=== PATIENT | female | born 1930 | race Caucasian/White ===

== ENCOUNTER 2019-11-24 19:06 | Inpatient (IN) | payer MEDICARE, OTHER ==
[~2019-11-24] VITALS: Ht 147.3 cm; Wt 66.4 kg
[2019-11-24 19:44] LABS: BASO # 0.1 x10^3/uL (0.0-0.2); BASO % 1 % (0-3); EOS # 0.6 x10^3/uL (0.0-0.7); EOS % 6 % (0-3); HEMATOCRIT 40.8 % (36.0-47.0); HEMOGLOBIN 13.2 g/dL (12.0-15.5); LYMPH # 0.8 x10^3/uL (1.0-4.8); LYMPH % 9 % (24-48); MEAN CORPUSCULAR HEMOGLOBIN 29 pg (25-35); MEAN CORPUSCULAR HGB CONC 32 g/dL (31-37); MEAN CORPUSCULAR VOLUME 91 fL (79-100); MONO # 0.6 x10^3/uL (0.0-1.1); MONO % 6 % (0-9); NEUT # 7.1 x10^3uL (1.8-7.7); NEUT % 78 % (31-73); PLATELET COUNT 258 x10^3/uL (140-400); RED BLOOD COUNT 4.49 x10^6/uL (3.50-5.40); WHITE BLOOD COUNT 9.1 x10^3/uL (4.0-11.0)
[2019-11-24 19:49] LABS: CREATININE 1.3 mg/dL (0.6-1.0); GFR 38.7; POTASSIUM 4.1 mmol/L (3.5-5.1)
[2019-11-24 19:55] LABS: ALBUMIN/GLOBULIN RATIO 0.7 (1.0-1.7); MAGNESIUM 1.2 mg/dL (1.8-2.4); TOTAL BILIRUBIN 0.2 mg/dL (0.2-1.0); TOTAL PROTEIN 7.4 g/dL (6.4-8.2)
--- NOTE | 2019-11-24 20:41 | PHYS DOC ---
Past History Past Medical History: A-Fib, Anxiety, Arthritis, Arrhythmia, Asthma, CHF, Dementia, Diabetes, GERD, High Cholesterol, Hypertension, Hypothyroid, UTI Past Surgical History: Pacemaker Alcohol Use: None Adult General Chief Complaint Chief Complaint: PSYCH EVALUATION HPI HPI 89-year-old female presents for medical clearance for behavioral health admission. Patient was reported to be having hallucinations about spiders and snakes in her room. The patient only complains of some ongoing irritation to me. She denies any other complaints. She has not reported fever. Review of Systems Review of Systems Constitutional: Denies fever or chills [] Eyes: Denies change in visual acuity, redness, or eye pain [] HENT: Denies nasal congestion or sore throat [] Respiratory: Denies cough or shortness of breath [] Cardiovascular: No additional information not addressed in HPI [] GI: Denies abdominal pain, nausea, vomiting, bloody stools or diarrhea [] : Denies dysuria or hematuria [] Musculoskeletal: Denies back pain or joint pain [] Integument: Rash on upper thighs[] Neurologic: Hallucinations. Denies headache, focal weakness or sensory changes [] Endocrine: Denies polyuria or polydipsia [] All other systems were reviewed and found to be within normal limits, except as documented in this note. Allergies Allergies Allergies Coded Allergies Type Severity Reaction Last Updated Verified CAROLYN Inhibitors Allergy Unknown 11/24/19 Yes Penicillins Allergy Unknown 11/24/19 Yes codeine Allergy Unknown 11/24/19 Yes ibuprofen Allergy Unknown 11/24/19 Yes latex Allergy Unknown 11/24/19 Yes sulfamethoxazole Allergy Unknown 11/24/19 Yes trimethoprim Allergy Unknown 11/24/19 Yes Physical Exam Physical Exam Constitutional: Well developed, well nourished, no acute distress, non-toxic appearance. [] HENT: Normocephalic, atraumatic, bilateral external ears normal, oropharynx moist, no oral exudates, nose normal. [] Eyes: PERRLA, EOMI, conjunctiva normal, no discharge. [] Neck: Normal range of motion, no tenderness, supple, no stridor. [] Cardiovascular:Heart rate regular rhythm, no murmur [] Lungs & Thorax: Bilateral breath sounds clear to auscultation [] Abdomen: Bowel sounds normal, soft, no tenderness, no masses, no pulsatile matti s. [] Skin: Edematous patches on the bilateral upper inner thighs.[] Back: No tenderness, no CVA tenderness. [] Extremities: No tenderness, no cyanosis, no clubbing, ROM intact, no edema. [] Neurologic: Alert and oriented X 3, normal motor function, normal sensory function, no focal deficits noted. [] Psychologic: Affect normal, judgement normal, mood normal. [] Current Patient Data Vital Signs Vital Signs Date Time Temp Pulse Resp B/P (MAP) Pulse Ox O2 Delivery O2 Flow Rate FiO2 11/24/19 19:06 97.8 60 18 147/84 (105) 93 Room Air Lab Results Laboratory Tests Test 11/24/19 19:24 White Blood Count 9.1 x10^3/uL (4.0-11.0) Red Blood Count 4.49 x10^6/uL (3.50-5.40) Hemoglobin 13.2 g/dL (12.0-15.5) Hematocrit 40.8 % (36.0-47.0) Mean Corpuscular Volume 91 fL (79-100) Mean Corpuscular Hemoglobin 29 pg (25-35) Mean Corpuscular Hemoglobin Concent 32 g/dL (31-37) Red Cell Distribution Width 16.0 % (11.5-14.5) H Platelet Count 258 x10^3/uL (140-400) Neutrophils (%) (Auto) 78 % (31-73) H Lymphocytes (%) (Auto) 9 % (24-48) L Monocytes (%) (Auto) 6 % (0-9) Eosinophils (%) (Auto) 6 % (0-3) H Basophils (%) (Auto) 1 % (0-3) Neutrophils # (Auto) 7.1 x10^3uL (1.8-7.7) Lymphocytes # (Auto) 0.8 x10^3/uL (1.0-4.8) L Monocytes # (Auto) 0.6 x10^3/uL (0.0-1.1) Eosinophils # (Auto) 0.6 x10^3/uL (0.0-0.7) Basophils # (Auto) 0.1 x10^3/uL (0.0-0.2) Platelet Estimate Pending Sodium Level 142 mmol/L (136-145) Potassium Level 4.1 mmol/L (3.5-5.1) Chloride Level 103 mmol/L (98-107) Carbon Dioxide Level 28 mmol/L (21-32) Anion Gap 11 (6-14) Blood Urea Nitrogen 24 mg/dL (7-20) H Creatinine 1.3 mg/dL (0.6-1.0) H Estimated GFR (Cockcroft-Gault) 38.7 BUN/Creatinine Ratio 18 (6-20) Glucose Level 121 mg/dL (70-99) H Calcium Level 9.0 mg/dL (8.5-10.1) Magnesium Level 1.2 mg/dL (1.8-2.4) L Total Bilirubin 0.2 mg/dL (0.2-1.0) Aspartate Amino Transferase (AST) 53 U/L (15-37) H Alanine Aminotransferase (ALT) 81 U/L (14-59) H Alkaline Phosphatase 105 U/L (46-116) Total Protein 7.4 g/dL (6.4-8.2) Albumin 3.0 g/dL (3.4-5.0) L Albumin/Globulin Ratio 0.7 (1.0-1.7) L EKG EKG Likely paced rhythm, rate 60, leftward axis, no ST elevations or depressions.[] Radiology/Procedures Radiology/Procedures [] Course & Med Decision Making Course & Med Decision Making Pertinent Labs and Imaging studies reviewed. (See chart for details) The patient's labs are unremarkable. Her EKG is unremarkable. She is medically stable for behavioral health admission. I will advise that they treat her for tinea infection of the groin. [] Dragon Disclaimer Dragon Disclaimer This electronic medical record was generated, in whole or in part, using a voice recognition dictation system. Departure Departure: Impression: Primary Impression: Medical clearance for psychiatric admission Additional Impression: Tinea cruris Disposition: ADMITTED INPATIENT Condition: STABLE Problem Qualifiers JULIO CESAR SWANN DO Nov 24, 2019 20:40
[2019-11-24] MEDS ORDERED: ONDA4TAB12 PO (20:43)
[2019-11-24] MEDS ORDERED: APIX5TAB3 PO (20:43)
[2019-11-24] MEDS ORDERED: FURO40TA4 PO (20:43)
[2019-11-24] MEDS ORDERED: BUSP5TAB PO (20:43)
[2019-11-24] MEDS ORDERED: TRAM50TA PO (20:43)
[2019-11-24] MEDS ORDERED: METF10007 PO (20:43)
[2019-11-24] MEDS ORDERED: TRIA15CR50 TP (20:43)
[2019-11-24] MEDS ORDERED: DILT180T7 PO (20:43)
[2019-11-24] MEDS ORDERED: PRAV40TA2 PO (20:43)
[2019-11-24] MEDS ORDERED: LOSA25TA PO (20:43)
[2019-11-24] MEDS ORDERED: AMIO200T4 PO (20:43)
[2019-11-24] MEDS ORDERED: METO-247 PO (20:43)
[2019-11-24] MEDS ORDERED: QUET25TA5 PO (20:43)
[2019-11-24] MEDS ORDERED: DEXT15DR5 EACHEYE (20:43)
[2019-11-24] MEDS ORDERED: CYAN100031 PO (20:43)
[2019-11-24] MEDS ORDERED: LEVO75TA5 PO (20:43)
[2019-11-24] MEDS ORDERED: POTA20TA4 PO (20:43)
[2019-11-24] MEDS ORDERED: MULT-114 PO (20:43)
[2019-11-24] MEDS ORDERED: LOPE2TAB27 PO (20:43)
[2019-11-24] MEDS ORDERED: CHOL200078 PO (20:43)
[2019-11-24] MEDS ORDERED: ASCO500C PO (20:43)
[2019-11-24] MEDS ORDERED: LACT1CAP2 PO (20:43)
[2019-11-24] MEDS ORDERED: NYST60PO TP (20:43)
[2019-11-24] MEDS ORDERED: OMEP40CA45 PO (20:43)
[2019-11-24] MEDS ORDERED: CALC500T31 PO (20:43)
[2019-11-24 21:23] LABS: % BANDS 5 % (0-9); % EOS 4 % (0-5); % LYMPHS 7 % (24-48); % MONOS 2 % (0-10); % MYELOS 2 % (0-0); % SEGS 80 % (35-66)
[2019-11-24 21:24] LABS: PLT ESTIMATE ADEQUATE (ADEQUATE)
[2019-11-24 21:56] LABS: CLARITY,URINE HAZY; COLOR,URINE YELLOW
[2019-11-24 21:57] LABS: BILIRUBIN,URINE NEG (NEG); GLUCOSE,URINE NEG (NEG); NITRITE,URINE NEG (NEG); UROBILINOGEN,URINE 0.2 mg/dL (0.2 mg/dL)
[2019-11-24] MEDS ORDERED: INSU100I17 SQ (22:07)
[2019-11-24 22:27] VITALS: BP 132/61
[2019-11-24] MEDS ORDERED: MAG HYDROX/AL HYDROX/SIMETH 30 ML ORAL.SUSP PO PRN (22:30)
[2019-11-24] MEDS ORDERED: ACETAMINOPHEN 325 MG TABLET PO PRN (22:30)
[2019-11-24] MEDS ORDERED: DEXTROSE 50% 25 GM / 50ML DISP.SYRIN. IV PRN (22:30)
[2019-11-24] MEDS ORDERED: MAGNESIUM HYDROXIDE 2,400 MG/30 ML ORAL.SUSP. PO PRN (22:30)
[2019-11-24] MEDS ORDERED: METHYL SALICYLATE/MENTHOL TOPICAL OINTMENT 57GM TUBE. TP PRN (22:30)
[2019-11-24] MEDS ORDERED: TRIAMCINOLONE ACETONIDE 0.5% TOPICAL CREAM 15GM TUBE. TP PRN (22:30)
[2019-11-24] MEDS ORDERED: LOPERAMIDE 2 MG CAPSULE PO PRN (22:45)
[2019-11-24] MEDS ORDERED: CALCIUM CARBONATE 500 MG TAB.CHEW PO PRN (22:45)
[2019-11-24] MEDS ORDERED: ANTI-COAG MONITOR BY PHARMACY. MC PRN (23:00)
--- NOTE | 2019-11-24 23:15 | EKG ---
[address] [address] Test Date: 2019-11-24 Test Time: 19:28:04 Pat Name: QUINCY HOLLAND Department: Room: [address] [place] [address] Gender: F [employer]: : 1930 Requested By: JULIO CESAR SWANN Order Number: [id number] Reading MD: Farhat Cespedes Measurements Intervals [place] Rate: 60 P: [place]: QRS: -21 QRSD: 84 T: 8 QT: 518 QTc: 523 Interpretive Statements ATRIAL PACED RHYTHM LEFTWARD AXIS LOW LIMB LEAD VOLTAGE QRS(T) CONTOUR ABNORMALITY CONSISTENT WITH INFERIOR INFARCT PROBABLY OLD ABNORMAL ECG RI6.01 No previous ECG available for comparison Electronically Signed On 12-12-2019 9:21:00 CDT by Farhat Cespedes
[2019-11-25 05:23] VITALS: BP 134/71
[2019-11-25] MEDS: INSULIN LISPRO 300 UNITS/3 ML VIAL. SQ SCH ×3 (08:00→17:00)
--- NOTE | 2019-11-25 08:02 | RAD ---
EXAM: CHEST AP ONLY INDICATION: Crackles at bilateral lung bases.. TECHNIQUE: Single view COMPARISON: None FINDINGS: Left chest dual-chamber pacemaker is present. Heart is borderline enlarged. Great vessels show aortic calcification and mild tortuosity. There is mild prominence of the pulmonary artery shadows bilaterally. No hilar or mediastinal masses seen. Lungs show coarse reticular densities, right greater than left with slightly low lung volumes. There is no pleural effusion or pneumothorax. There are no significant osseous abnormalities. IMPRESSION: Findings of interstitial lung disease with borderline cardiomegaly. No parenchymal consolidative changes suspicious for lobar pneumonia. Electronically signed by: Gillian Koenig MD (11/25/2019 7:59 AM) [id number]
[2019-11-25] MEDS ORDERED: QUEtiapine 25 MG TABLET. PO SCH (09:00)
[2019-11-25] MEDS: AMIODARONE HCL 200 MG TABLET PO SCH (09:00)
[2019-11-25] MEDS: NYSTATIN TOPICAL POWDER 15GM BOTTLE. TP SCH ×3 (09:00→20:48)
[2019-11-25] MEDS: APIXABAN 5 MG TABLET. PO SCH ×2 (09:27→20:51)
[2019-11-25] MEDS: PANTOPRAZOLE 40 MG TABLET. PO SCH (09:27)
[2019-11-25] MEDS: metFORMIN 500 MG TABLET PO SCH ×2 (09:27→17:00)
[2019-11-25] MEDS: LACTOBACILLUS RHAMNOSUS GG 1 CAPSULE. PO SCH (09:27)
[2019-11-25] MEDS: ASCORBIC ACID 500 MG TABLET PO SCH (09:27)
[2019-11-25] MEDS: MULTIVITAMIN with MINERAL TABLET. PO SCH (09:28)
[2019-11-25] MEDS: POLYVINYL ALCOHOL 1.4% OPHTH SOLUTION 15ML BOTTLE. OU SCH ×2 (09:28→20:48)
[2019-11-25] MEDS: LEVOTHYROXINE 75 MCG TABLET PO SCH (09:28)
[2019-11-25] MEDS: LOSARTAN 25 MG TABLET. PO SCH (09:28)
[2019-11-25] MEDS: POTASSIUM CHLORIDE 20 MEQ TABLET.ER. PO SCH (09:29)
[2019-11-25] MEDS: CYANOCOBALAMIN (VITAMIN B-12) 1,000 MCG TABLET. PO SCH (09:29)
[2019-11-25] MEDS: busPIRone 5 MG TABLET. PO SCH ×2 (09:29→20:50)
[2019-11-25] MEDS: FUROSEMIDE 40 MG TABLET PO SCH (09:29)
[2019-11-25 15:43] VITALS: BP 106/71
[2019-11-25 16:07] LABS: THYROXINE 11.1 ug/dL (4.5-12.0)
[2019-11-25 17:40] LABS: BILIRUBIN,URINE NEG (NEG); CLARITY,URINE HAZY; COLOR,URINE YELLOW; GLUCOSE,URINE NEG (NEG)
[2019-11-25 17:41] LABS: BACTERIA,URINE FEW /HPF (0-FEW); NITRITE,URINE NEG (NEG); RBC,URINE OCC /HPF (0-2); SQUAMOUS EPITHELIAL CELL,UR FEW /LPF; UROBILINOGEN,URINE 0.2 mg/dL (0.2 mg/dL)
[2019-11-25] MEDS: risperiDONE 0.5 MG TABLET. PO SCH (20:48)
[2019-11-25] MEDS: CHOLECALCIFEROL (VITAMIN D3) 1,000 UNIT TABLET PO SCH (20:49)
[2019-11-25] MEDS: METOPROLOL SUCC 24HR ER 50 MG TAB.ER.24H. PO SCH (20:50)
[2019-11-25] MEDS: ATORVASTATIN CALCIUM 10 MG TABLET. PO SCH (20:51)
--- NOTE | 2019-11-25 21:28 | PDOC ---
Exam Note: Jamey Note: Please also refer to the separate dictated note~for this date of service dictated separately. Discussed the patient with Nursing staff reviewed the chart.~Reviewed interim history and current functioning. Reviewed vital signs,~Labs/ Radiology~and current medications noted below. Continue current treatment with the changes noted in the dictated addendum note Assessment: Vital Signs/I&O: Vital Signs Date Time Temp Pulse Resp B/P (MAP) Pulse Ox O2 Delivery O2 Flow Rate FiO2 11/25/19 20:50 64 106/71 11/25/19 15:43 97.7 16 96 11/25/19 05:23 Room Air Labs: Laboratory Tests Test 11/25/19 08:03 11/25/19 11:55 11/25/19 15:48 11/25/19 17:01 Glucose (Fingerstick) 186 mg/dL (70-99) H 110 mg/dL (70-99) H 108 mg/dL (70-99) H Urine Collection Type Unknown Urine Color Yellow Urine Clarity Hazy Urine pH 5.5 Urine Specific [place] 1.010 Urine Protein Neg (NEG-TRACE) Urine Glucose (UA) Neg mg/dL (NEG) Urine Ketones (Stick) Neg mg/dL (NEG) Urine Blood Neg (NEG) Urine Nitrite Neg (NEG) Urine Bilirubin Neg (NEG) Urine Urobilinogen Dipstick 0.2 mg/dL (0.2 mg/dL) Urine Leukocyte Esterase Large (NEG) Urine RBC Occ /HPF (0-2) Urine WBC 11-20 /HPF (0-4) Urine Squamous Epithelial Cells Few /LPF Urine Renal Epithelial Cells Few /LPF Urine Bacteria Few /HPF (0-FEW) Test 11/25/19 19:22 Glucose (Fingerstick) 140 mg/dL (70-99) H Current Medications: Meds: Current Medications Medications (Trade) Dose Ordered Sig/Dinh Route PRN Reason Start Time Stop Time Status Last Admin Dose Admin Amiodarone HCl (Cordarone) 200 mg DAILY PO 11/25/19 09:00 11/25/19 09:00 Apixaban (Eliquis) 5 mg BID PO 11/25/19 09:00 11/25/19 20:51 Furosemide (Lasix) 40 mg DAILY PO 11/25/19 09:00 11/25/19 09:29 Levothyroxine Sodium (Synthroid) 75 mcg DAILYAC PO 11/25/19 07:30 11/25/19 09:28 Losartan Potassium (Cozaar) 25 mg DAILY PO 11/25/19 09:00 11/25/19 09:28 Nystatin (Nystop) 1 ana maria TID TP 11/25/19 09:00 11/25/19 20:48 Potassium Chloride (Klor-Con) 20 meq DAILY PO 11/25/19 09:00 11/25/19 09:29 Ascorbic Acid (Vitamin C) 500 mg DAILY PO 11/25/19 09:00 11/25/19 09:27 Vitamin D (Vitamin D3) 2,000 unit QHS PO 11/25/19 21:00 11/25/19 20:49 Cyanocobalamin (Vitamin B-12) 1,000 mcg DAILY PO 11/25/19 09:00 11/25/19 09:29 Artificial Tears (Artificial Tears) 2 drop BID OU 11/25/19 09:00 11/25/19 20:48 Diltiazem HCl (Cardizem 24hr Cd) 180 mg DAILY PO 11/25/19 09:00 11/25/19 09:28 Lactobacillus Rhamnosus (Culturelle) 1 cap DAILY PO 11/25/19 09:00 11/25/19 09:27 Metformin HCl (Glucophage) 1,000 mg BIDWMEALS PO 11/25/19 08:00 11/25/19 17:00 Multivitamins/ Calcium (Thera-M Plus) 1 tab DAILY PO 11/25/19 09:00 11/25/19 09:28 Pantoprazole Sodium (Protonix) 40 mg DAILYAC PO 11/25/19 07:30 11/25/19 09:27 Atorvastatin Calcium (Lipitor) 10 mg QHS PO 11/25/19 21:00 11/25/19 20:51 Buspirone HCl (Buspar) 5 mg BID PO 11/25/19 09:00 11/25/19 20:50 Quetiapine Fumarate (SEROquel) 12.5 mg BID PO 11/25/19 09:00 11/25/19 19:19 DC 11/25/19 09:29 Olanzapine (ZyPREXA ZYDIS) 2.5 mg PRN Q2HR PRN PO PSYCHOSIS 11/24/19 22:30 11/25/19 02:15 Risperidone (RisperDAL) 0.5 mg QHS PO 11/25/19 21:00 11/25/19 20:48 I have reviewed the current psychotropics carefully including drug interactions. Risk benefit ratio favors no change other than as noted in my dictated progress note. Diagnosis: Problems: (1) Visual hallucinations (2) Impulse control disorder (3) Confusion VINITA PONCE MD Nov 25, 2019 21:28
[2019-11-25 21:29] LABS: THYROID STIM HORMONE (TSH) 10.03 uIU/mL (0.358-3.740)
[2019-11-25 23:07] LABS: HEMOGLOBIN A1C 6.7 % (4.8-5.6)
[2019-11-25] MEDS: traMADol 50 MG TABLET PO PRN (23:38)
--- NOTE | 2019-11-26 00:12 | CONS ---
DATE OF CONSULTATION: 11/25/2019 REASON FOR CONSULTATION: Medical management. HISTORY OF PRESENT ILLNESS: The patient is an 89-year-old female patient, a resident at [facility], who was admitted on account of visual and tactile hallucinations, talking about snakes and bugs, thinks snakes are going into her vagina filling her room because she thought someone was trying to burn her with cigars, all this in a background of major neurocognitive disorder, vascular Alzheimer with delusion, depression with behavioral disturbances; anxiety and impulse control disorder. PAST MEDICAL HISTORY: Significant for congestive heart failure, atrial fibrillation, rapid ventricular response, diabetes mellitus, hyperlipidemia, hypothyroidism, bronchial asthma, gastroesophageal reflux disease, history of C. diff colitis and urinary tract infection. She also has a history of pressure ulcers in her left heel and recent nasal fracture. ALLERGIES: She is allergic to CAROLYN INHIBITORS, PENICILLIN, CODEINE, IBUPROFEN, LATEX, AND SULFAMETHOXAZOLE, TRIMETHOPRIM. MEDICATIONS: She is currently on following medications: She is on apixaban 5 mg twice a day, amiodarone 200 mg once a day, pravastatin sodium 40 mg at bedtime. She is on metoprolol succinate 150 mg at bedtime, diltiazem 180 mg daily, losartan potassium 25 mg daily, tramadol 50 mg every 6 hours, Seroquel 12.5 mg twice a day, buspirone 5 mg twice a day, calcium carbonate 500 mg twice a day, potassium chloride 20 mEq once a day, furosemide 40 mg once a day, lactobacillus acidophilus 1 capsule once a day, loperamide 2 mg twice a day, ondansetron 4 mg 3 times a day as needed for nausea and vomiting. She is also on omeprazole 40 mg once a day, metformin 1000 mg twice a day with meals. She is also on NovoLog FlexPen 2-12 units subcutaneously before meals, levothyroxine sodium 75 mcg once a day, nystatin powder applied topically 3 times a day, triamcinolone acetonide cream applied topically 3 times a day, cyanocobalamin, vitamin B12 1000 mcg once a day, ascorbic acid 500 mg once a day, cholecalciferol 2000 units at bedtime, and multivitamin 1 tablet once a day. FAMILY HISTORY: Noncontributory. SOCIAL HISTORY: She is a resident at [facility]. She stated that she has children that are grown up. PHYSICAL EXAMINATION: GENERAL: When I examined her, she was resting, sitting comfortably in her chair, in no apparent respiratory distress. She was clinically pale. No jaundice or cyanosis. No lymphadenopathy, no thyromegaly. No jugular venous distension. No lower limb edema. VITAL SIGNS: Her heart rate was 64, blood pressure was 106/71, temperature was 97.7, respiratory rate was 16, and oxygen saturation was 96%. HEAD, EYES, EARS, NOSE AND THROAT: Showed she is normocephalic. Apparently, she has multiple bruises on her cheeks and around her eyes the result of fall, hitting her head. NECK: Supple. CARDIAC: Normal first and second heart sounds. No gallop or murmur. CHEST: Clear to auscultation. No crepitation or rhonchi. ABDOMEN: Distended, soft, nontender. NEUROLOGIC: She is awake, alert, but definitely very confused, delusional. She said that the [facility] they have fish that attacked her and here we have multiple snakes are also attacking her. LABORATORY WORK: Showed that her white cell count was 9100, hemoglobin 13, hematocrit 41, MCV 91, and platelet count 258,000 with normal manual differential. Her chemistry also showed a serum sodium 142, potassium 4.1, chloride 103, bicarbonate 28, anion gap of 11, BUN 24, creatinine 1.3, estimated GFR was 58 mL per minute. Her glucose 121, calcium was normal. Magnesium was low at 1.2. Total bilirubin normal. AST, ALT slightly elevated. Alkaline phosphatase was normal. Her total protein was 7.4, albumin was 3. Total T4 was normal, however, total T3 is low at 50 ng/dL. IMPRESSION: All in all, this is an 89-year-old female patient, who was admitted on account of having visual and tactile hallucinations about snakes and bugs, thinks snakes are going into her vagina filling the room because she thought someone was trying to burn her with cigars, all this in a background of the major neurocognitive disorder. Medically, she has multiple medical problems including atrial fibrillation with rapid ventricular response. Heart rate is actually rate is well controlled. She is on amiodarone. She is well anticoagulated on apixaban. She also has hyperlipidemia, hypothyroidism, type 2 diabetes mellitus, gastroesophageal reflux disease and bronchial asthma and history of Clostridium difficile colitis and urinary tract infection. Her urinalysis showed that her urine was yellow, hazy with a pH of 5.5, specific gravity of 1.010. The urine was negative for protein, glucose, ketones, blood, nitrite; however, there was large amount of leukocyte esterase, 11-20 wbc's and very few bacteria. Given that she is hemodynamically stable and afebrile, I would probably wait for the result of the culture and sensitivity before initiating the antibiotic. Overall, the patient seemed to be medically stable. I will review all the lab works that are still pending at the time of this dictation and make any necessary recommendation. TIAAR BOOGIE MD DR: JOCE/halle JOB#: [id number] / [id number]
[2019-11-26 05:00] VITALS: BP 101/55
[2019-11-26] MEDS: PANTOPRAZOLE 40 MG TABLET. PO SCH (07:30)
[2019-11-26] MEDS: LEVOTHYROXINE 75 MCG TABLET PO SCH (07:30)
[2019-11-26] MEDS: INSULIN LISPRO 300 UNITS/3 ML VIAL. SQ SCH ×3 (08:00→17:00)
[2019-11-26] MEDS: metFORMIN 500 MG TABLET PO SCH ×2 (08:00→17:12)
[2019-11-26 08:25] VITALS: BP 129/67
--- NOTE | 2019-11-26 08:29 | HP ---
ADMIT DATE: 11/24/2019 PSYCHIATRIC ADMISSION HISTORY/EVALUATION IDENTIFYING DATA: The patient is an 89-year-old female referred to us from [facility] by her primary care physician on account of having active visual and tactile hallucinations, seeing and feeling snakes and bugs. She thinks the snakes are going into her vagina. She fell in her room because she thought someone was trying to burn her with cigars. The patient has been increasingly confused as well as failed outpatient psychiatric interventions resulting in this referral. CHIEF COMPLAINT: "Yes, they go inside my body, they are the snakes and bugs." HISTORY OF PRESENT ILLNESS: The patient has a history of progressive memory deficits, confusion, mood swings and psychotic symptoms. She has been residing at [facility], has been extremely psychotic as noted above. She was having visual and tactile hallucinations of snakes and bugs thinking the snakes are going into her vagina. She fell in her room because she thought someone was trying to burn her with cigars. She has had worsening mood vacillations. She has failed outpatient psychiatric treatment resulting in this referral. PAST PSYCHIATRIC HISTORY: Positive for worsening psychotic symptoms and confusion. ALLERGIES: CAROLYN INHIBITORS, CODEINE, IBUPROFEN, PENICILLIN, SULFAMETHOXAZOLE, TRIMETHOPRIM. CODE STATUS: DNR. MEDICAL HISTORY: Heart failure, atrial fibrillation with RVR, diabetes mellitus, hyperlipidemia, hypothyroidism, asthma, GERD, history of C. diff, history of UTI, history of pressure ulcer left heel, recent nasal fracture, interstitial lung disease. ACCU-CHEKS: Before meals and at bedtime. DIET: Regular. Takes medications whole, sometimes needs them to cut in half. Ambulates in wheelchair. UA needs to be collected. CURRENT PSYCHOTROPICS: BuSpar 5 mg b.i.d., Seroquel 12.5 b.i.d., Zyprexa p.r.n. FAMILY HISTORY: Noncontributory. SOCIAL HISTORY: No history of alcohol, drug abuse, physical, sexual or elder abuse. She is not known to be a perpetrator. REACTION TO HOSPITALIZATION: The patient accepting of it. ASSETS: Supportive living at the above facility, supportive family. REVIEW OF SYSTEMS: Ambulation impaired, in wheelchair. No CV, , pulmonary, eye system symptoms on review. She does have a nasal fracture and bruising around the eye from the fall noted above. MENTAL STATUS EXAMINATION: The patient is oriented to herself and situation. Speech has some latency, coherent. Abstraction fair, computation impaired, language function intact, attention span short. Short term memory is impaired. No active suicidal or homicidal ideation. LABORATORY DATA: Reviewed. 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 Rest as above. PLAN: Admit to Geropsychiatry Unit at [facility]. I will see the patient daily individually from a psychiatric standpoint. Medical followup with Dr. Calvin. We will start Zyprexa p.r.n. Check UA. May consider changing Seroquel to Risperdal given her significant psychotic symptoms. In fact, we will change the Seroquel to Risperdal 0.5 mg p.o. daily. Observe baseline, then make further changes in her psychotropics as clinically indicated. VINITA PONCE MD DR: GIANNA/halle JOB#: [id number] / [id number]
[2019-11-26] MEDS: AMIODARONE HCL 200 MG TABLET PO SCH (09:00)
[2019-11-26] MEDS: busPIRone 5 MG TABLET. PO SCH ×2 (09:00→20:10)
[2019-11-26] MEDS: ASCORBIC ACID 500 MG TABLET PO SCH (09:00)
[2019-11-26] MEDS: NYSTATIN TOPICAL POWDER 15GM BOTTLE. TP SCH ×3 (09:00→20:09)
[2019-11-26] MEDS: POLYVINYL ALCOHOL 1.4% OPHTH SOLUTION 15ML BOTTLE. OU SCH ×2 (09:00→20:15)
[2019-11-26] MEDS: MULTIVITAMIN with MINERAL TABLET. PO SCH (09:00)
[2019-11-26] MEDS: CYANOCOBALAMIN (VITAMIN B-12) 1,000 MCG TABLET. PO SCH (09:00)
[2019-11-26] MEDS: APIXABAN 5 MG TABLET. PO SCH ×2 (09:00→20:09)
[2019-11-26] MEDS: POTASSIUM CHLORIDE 20 MEQ TABLET.ER. PO SCH (09:00)
[2019-11-26] MEDS: LOSARTAN 25 MG TABLET. PO SCH (09:00)
[2019-11-26] MEDS: LACTOBACILLUS RHAMNOSUS GG 1 CAPSULE. PO SCH (09:00)
[2019-11-26] MEDS: FUROSEMIDE 40 MG TABLET PO SCH (09:00)
[2019-11-26 16:25] VITALS: BP 108/67
[2019-11-26] MEDS: CHOLECALCIFEROL (VITAMIN D3) 1,000 UNIT TABLET PO SCH (20:10)
[2019-11-26] MEDS: METOPROLOL SUCC 24HR ER 50 MG TAB.ER.24H. PO SCH (20:10)
[2019-11-26] MEDS: ATORVASTATIN CALCIUM 10 MG TABLET. PO SCH (20:10)
[2019-11-26] MEDS: risperiDONE 0.5 MG TABLET. PO SCH (20:11)
--- NOTE | 2019-11-26 21:24 | PN ---
DATE: 11/26/2019 SUBJECTIVE: The patient was seen today, met with the staff, chart reviewed and also covering for Dr. Sterling. The patient is withdrawn most of the time, highly anxious, nervous, yelling out. OBSERVATION: VITAL SIGNS: Temperature 91.5, blood pressure 101/58, pulse 61, respirations 16, O2 sat 96%. Slept about 2 hours last night. MEDICATIONS: Reviewed. Currently on Risperdal 0.5 mg at night, BuSpar 5 mg b.i.d., olanzapine 2.5 mg q. 2 hours p.r.n. The patient apparently had a recent history of visual and tactile hallucinations, seeing snakes, bugs. The patient also delusional at times. LABORATORY DATA: The patient's lab reviewed. ASSESSMENT: 1. Major neurocognitive disorder, most likely Alzheimer's, vascular with delusion, depression. 2. Anxiety disorder, not otherwise specified; impulse control disorder, unspecified. PLAN: To continue with the treatment. LENGTH OF STAY: 5 days. MELLISA RICHEY MD DR: CRISTY/halle JOB#: [id number] / [id number]
[2019-11-26] MEDS: traMADol 50 MG TABLET PO PRN (21:57)
[2019-11-27 05:24] VITALS: BP 160/69
[2019-11-27] MEDS: PANTOPRAZOLE 40 MG TABLET. PO SCH (08:25)
[2019-11-27] MEDS: LEVOTHYROXINE 75 MCG TABLET PO SCH (08:25)
[2019-11-27] MEDS: metFORMIN 500 MG TABLET PO SCH ×2 (08:25→17:24)
[2019-11-27] MEDS: INSULIN LISPRO 300 UNITS/3 ML VIAL. SQ SCH ×3 (08:26→17:24)
[2019-11-27] MEDS: POLYVINYL ALCOHOL 1.4% OPHTH SOLUTION 15ML BOTTLE. OU SCH ×2 (08:26→20:00)
[2019-11-27] MEDS: busPIRone 5 MG TABLET. PO SCH ×2 (08:27→20:02)
[2019-11-27] MEDS: AMIODARONE HCL 200 MG TABLET PO SCH (08:31)
[2019-11-27] MEDS: LACTOBACILLUS RHAMNOSUS GG 1 CAPSULE. PO SCH (08:32)
[2019-11-27] MEDS: APIXABAN 5 MG TABLET. PO SCH ×2 (08:32→20:01)
[2019-11-27] MEDS: LOSARTAN 25 MG TABLET. PO SCH (08:32)
[2019-11-27] MEDS: FUROSEMIDE 40 MG TABLET PO SCH (08:32)
[2019-11-27] MEDS: POTASSIUM CHLORIDE 20 MEQ TABLET.ER. PO SCH (08:33)
[2019-11-27] MEDS: ASCORBIC ACID 500 MG TABLET PO SCH (08:33)
[2019-11-27] MEDS: NYSTATIN TOPICAL POWDER 15GM BOTTLE. TP SCH ×3 (08:33→20:00)
[2019-11-27] MEDS: MULTIVITAMIN with MINERAL TABLET. PO SCH (08:33)
[2019-11-27] MEDS: CYANOCOBALAMIN (VITAMIN B-12) 1,000 MCG TABLET. PO SCH (08:33)
[2019-11-27 15:36] VITALS: BP 126/60
--- NOTE | 2019-11-27 17:59 | RAD ---
Abdominal and Pelvis CT, Without Contrast: History: Abdominal pain Comparison: None. Procedure: Axial images are obtained of the abdomen and pelvis, without IV or oral contrast. Oral Contrast: No Findings: Evaluation of solid organs is limited without contrast. There is a large hiatal hernia. There is a 3.4 similar diverticulum arising from the duodenal sweep. There is a 2.1 cm hypoattenuating lesion arising posteriorly from the mid left kidney. There is beam Quinn artifact from prior bilateral hip repair. There is sigmoid diverticulosis without surrounding inflammation. Is calcification of the cartwright of the aorta and great vessels without aneurysm. Liver: Normal. Spleen: Normal. Pancreas: Normal. Adrenal Glands: Normal. Kidneys: Normal. There is no free air or free fluid. There is no lymphadenopathy. The urinary bladder appears normal. There is no pericolonic inflammation identified. There is a small cyst in the gallbladder however there is no wall thickening or surrounding fluid or inflammation. Impression: 1. Indeterminate lesion in the left kidney. Recommend a follow-up ultrasound as an outpatient. 2. Moderate sigmoid diverticulosis without evidence of acute diverticulitis. End impression PQRS Compliance Statement: One or more of the following individualized dose reduction techniques were utilized for this examination: 1. Automated exposure control 2. Adjustment of the mA and/or kV according to patient size 3. Use of iterative reconstruction technique Electronically signed by: Victor Manuel Shipman III, MD (11/27/2019 5:56 PM) [id number]
[2019-11-27] MEDS: ATORVASTATIN CALCIUM 10 MG TABLET. PO SCH (20:01)
[2019-11-27] MEDS: risperiDONE 0.5 MG TABLET. PO SCH (20:01)
[2019-11-27] MEDS: CHOLECALCIFEROL (VITAMIN D3) 1,000 UNIT TABLET PO SCH (20:01)
[2019-11-27] MEDS: METOPROLOL SUCC 24HR ER 50 MG TAB.ER.24H. PO SCH (20:02)
--- NOTE | 2019-11-27 23:13 | PN ---
DATE: 11/27/2019 SUBJECTIVE: The patient was seen today, met with the staff, chart reviewed. Staff reports that the patient is still anxious at times. Problems; memory, not able to concentrate very much. Otherwise, the patient has been calm and compliant with medications. OBSERVATION: VITAL SIGNS: Temperature 98.0, blood pressure 160/69, pulse 59, respirations 20, O2 sat 93%. Slept only about an hour last night. LABORATORY DATA: The patient's lab reviewed. The patient is not presenting with any major physical complaints. The patient has not presented with any psychotic symptoms at this time. No visual or tactile hallucinations. CURRENT MEDICATIONS: The patient's current medications include Risperdal 0.5 mg at night, BuSpar 5 mg b.i.d. and olanzapine 2.5 mg q. 2 hours p.r.n. The patient denies of any side effects to medications. The patient's lab reviewed. ASSESSMENT: 1. Major neurocognitive disorder, most likely Alzheimer's, vascular with delusions and depression. 2. Anxiety disorder, not otherwise specified. 3. Impulse control disorder, unspecified. PLAN: To continue with the treatment. LENGTH OF STAY: 3-4 days. MELLISA RICHEY MD [address]: CRISTY/halle JOB#: [id number] / [id number]
[2019-11-28] MEDS: traMADol 50 MG TABLET PO PRN (00:02)
[2019-11-28] MEDS: LEVOTHYROXINE 75 MCG TABLET PO SCH (05:48)
[2019-11-28 05:58] VITALS: BP 156/71
[2019-11-28] MEDS: POLYVINYL ALCOHOL 1.4% OPHTH SOLUTION 15ML BOTTLE. OU SCH ×2 (08:28→20:18)
[2019-11-28] MEDS: PANTOPRAZOLE 40 MG TABLET. PO SCH (08:28)
[2019-11-28] MEDS: INSULIN LISPRO 300 UNITS/3 ML VIAL. SQ SCH ×3 (08:28→17:00)
[2019-11-28] MEDS: metFORMIN 500 MG TABLET PO SCH ×2 (08:28→17:00)
[2019-11-28] MEDS: AMIODARONE HCL 200 MG TABLET PO SCH (08:29)
[2019-11-28] MEDS: busPIRone 5 MG TABLET. PO SCH ×2 (08:29→20:19)
[2019-11-28] MEDS: MULTIVITAMIN with MINERAL TABLET. PO SCH (08:30)
[2019-11-28] MEDS: CYANOCOBALAMIN (VITAMIN B-12) 1,000 MCG TABLET. PO SCH (08:30)
[2019-11-28] MEDS: LOSARTAN 25 MG TABLET. PO SCH (08:30)
[2019-11-28] MEDS: LACTOBACILLUS RHAMNOSUS GG 1 CAPSULE. PO SCH (08:30)
[2019-11-28] MEDS: APIXABAN 5 MG TABLET. PO SCH ×2 (08:30→20:20)
[2019-11-28] MEDS: FUROSEMIDE 40 MG TABLET PO SCH (08:30)
[2019-11-28] MEDS: POTASSIUM CHLORIDE 20 MEQ TABLET.ER. PO SCH (08:30)
[2019-11-28] MEDS: NYSTATIN TOPICAL POWDER 15GM BOTTLE. TP SCH ×3 (08:31→20:17)
[2019-11-28] MEDS: ASCORBIC ACID 500 MG TABLET PO SCH (08:31)
[2019-11-28] MEDS: ONDANSETRON ODT 4 MG TAB.RAPDIS PO PRN (12:34)
[2019-11-28 13:35] LABS: BASO % 0 % (0-3); EOS # 0.2 x10^3/uL (0.0-0.7); EOS % 2 % (0-3); HEMATOCRIT 43.5 % (36.0-47.0); HEMOGLOBIN 14.1 g/dL (12.0-15.5); LYMPH # 0.5 x10^3/uL (1.0-4.8); LYMPH % 4 % (24-48); MEAN CORPUSCULAR HEMOGLOBIN 29 pg (25-35); MEAN CORPUSCULAR HGB CONC 32 g/dL (31-37); MEAN CORPUSCULAR VOLUME 91 fL (79-100); MONO # 0.6 x10^3/uL (0.0-1.1); MONO % 5 % (0-9); NEUT # 11.3 x10^3uL (1.8-7.7); NEUT % 89 % (31-73); PLATELET COUNT 219 x10^3/uL (140-400); RED CELL DISTRIBUTION WIDTH 16.3 % (11.5-14.5); WHITE BLOOD COUNT 12.6 x10^3/uL (4.0-11.0)
[2019-11-28 13:36] LABS: ALBUMIN/GLOBULIN RATIO 0.7 (1.0-1.7); CALCIUM 9.2 mg/dL (8.5-10.1); CREATININE 1.1 mg/dL (0.6-1.0); GFR 46.9; POTASSIUM 4.2 mmol/L (3.5-5.1); TOTAL BILIRUBIN 0.3 mg/dL (0.2-1.0); TOTAL PROTEIN 7.4 g/dL (6.4-8.2)
[2019-11-28 14:56] LABS: % BANDS 4 % (0-9); % EOS 2 % (0-5); % LYMPHS 5 % (24-48); % MONOS 5 % (0-10); % MYELOS 3 % (0-0); % SEGS 81 % (35-66)
[2019-11-28 14:58] LABS: PLT ESTIMATE ADEQUATE (ADEQUATE)
[2019-11-28 16:34] VITALS: BP 131/76
[2019-11-28] MEDS: METOPROLOL SUCC 24HR ER 50 MG TAB.ER.24H. PO SCH (20:18)
[2019-11-28] MEDS: CHOLECALCIFEROL (VITAMIN D3) 1,000 UNIT TABLET PO SCH (20:19)
[2019-11-28] MEDS: risperiDONE 0.5 MG TABLET. PO SCH (20:19)
[2019-11-28] MEDS: ATORVASTATIN CALCIUM 10 MG TABLET. PO SCH (20:20)
--- NOTE | 2019-11-28 21:51 | PDOC ---
Exam Note: Jamey Note: Please also refer to the separate dictated note~for this date of service dictated separately.~Patient seen individually. Discussed the patient with Nursing staff reviewed the chart.~Reviewed interim history and current functioning. Reviewed vital signs,~Labs/ Radiology~and current medications noted below. Continue current treatment with the changes noted in the dictated addendum note Assessment: Vital Signs/I&O: Vital Signs Date Time Temp Pulse Resp B/P (MAP) Pulse Ox O2 Delivery O2 Flow Rate FiO2 11/28/19 20:18 64 131/76 11/28/19 16:34 98.3 18 96 11/27/19 05:24 Room Air I & O 11/27/19 11/27/19 11/28/19 15:00 23:00 07:00 Intake Total 240 ml 240 ml 120 ml Balance 240 ml 240 ml 120 ml Labs: Laboratory Tests Test 11/28/19 07:33 11/28/19 11:54 11/28/19 13:11 11/28/19 17:26 Glucose (Fingerstick) 108 mg/dL (70-99) H 113 mg/dL (70-99) H 119 mg/dL (70-99) H White Blood Count 12.6 x10^3/uL (4.0-11.0) H Red Blood Count 4.80 x10^6/uL (3.50-5.40) Hemoglobin 14.1 g/dL (12.0-15.5) Hematocrit 43.5 % (36.0-47.0) Mean Corpuscular Volume 91 fL (79-100) Mean Corpuscular Hemoglobin 29 pg (25-35) Mean Corpuscular Hemoglobin Concent 32 g/dL (31-37) Red Cell Distribution Width 16.3 % (11.5-14.5) H Platelet Count 219 x10^3/uL (140-400) Neutrophils (%) (Auto) 89 % (31-73) H Lymphocytes (%) (Auto) 4 % (24-48) L Monocytes (%) (Auto) 5 % (0-9) Eosinophils (%) (Auto) 2 % (0-3) Basophils (%) (Auto) 0 % (0-3) Neutrophils # (Auto) 11.3 x10^3uL (1.8-7.7) H Lymphocytes # (Auto) 0.5 x10^3/uL (1.0-4.8) L Monocytes # (Auto) 0.6 x10^3/uL (0.0-1.1) Eosinophils # (Auto) 0.2 x10^3/uL (0.0-0.7) Basophils # (Auto) 0.0 x10^3/uL (0.0-0.2) Segmented Neutrophils % 81 % (35-66) H Band Neutrophils % 4 % (0-9) Lymphocytes % 5 % (24-48) L Monocytes % 5 % (0-10) Eosinophils % 2 % (0-5) Myelocytes % 3 % (0-0) H Platelet Estimate Adequate (ADEQUATE) Sodium Level 140 mmol/L (136-145) Potassium Level 4.2 mmol/L (3.5-5.1) Chloride Level 104 mmol/L (98-107) Carbon Dioxide Level 24 mmol/L (21-32) Anion Gap 12 (6-14) Blood Urea Nitrogen 25 mg/dL (7-20) H Creatinine 1.1 mg/dL (0.6-1.0) H Estimated GFR (Cockcroft-Gault) 46.9 BUN/Creatinine Ratio 23 (6-20) H Glucose Level 104 mg/dL (70-99) H Calcium Level 9.2 mg/dL (8.5-10.1) Total Bilirubin 0.3 mg/dL (0.2-1.0) Aspartate Amino Transferase (AST) 64 U/L (15-37) H Alanine Aminotransferase (ALT) 74 U/L (14-59) H Alkaline Phosphatase 90 U/L (46-116) Total Protein 7.4 g/dL (6.4-8.2) Albumin 3.0 g/dL (3.4-5.0) L Albumin/Globulin Ratio 0.7 (1.0-1.7) L Test 11/28/19 19:50 Glucose (Fingerstick) 95 mg/dL (70-99) Current Medications: Meds: Current Medications Medications (Trade) Dose Ordered Sig/Dinh Route PRN Reason Start Time Stop Time Status Last Admin Dose Admin Levothyroxine Sodium (Synthroid) 75 mcg DAILY06 PO 11/28/19 06:00 11/28/19 05:48 Risperidone (RisperDAL) 0.5 mg DAILY@1700 PO 11/29/19 17:00 11/28/19 20:19 I have reviewed the current psychotropics carefully including drug interactions. Risk benefit ratio favors no change other than as noted in my dictated progress note. Diagnosis: Problems: (1) Impulse control disorder (2) Visual hallucinations (3) Psychotic disorder (4) Major neurocognitive disorder (5) Dementia, vascular, with delusions (6) Dementia, vascular, with depression (7) Dementia in Alzheimer's disease with delusions (8) Dementia in Alzheimer's disease with depression (9) Anxiety disorder VINITA PONCE MD Nov 28, 2019 21:51
[2019-11-29] MEDS: LEVOTHYROXINE 75 MCG TABLET PO SCH (05:38)
[2019-11-29 05:39] VITALS: BP 110/67
[2019-11-29] MEDS: INSULIN LISPRO 300 UNITS/3 ML VIAL. SQ SCH ×3 (09:06→17:18)
[2019-11-29] MEDS: risperiDONE 0.25 MG TABLET. PO SCH (09:07)
[2019-11-29] MEDS: metFORMIN 500 MG TABLET PO SCH ×2 (09:07→17:19)
[2019-11-29] MEDS: LACTOBACILLUS RHAMNOSUS GG 1 CAPSULE. PO SCH (09:07)
[2019-11-29] MEDS: busPIRone 5 MG TABLET. PO SCH ×2 (09:07→20:13)
[2019-11-29] MEDS: MULTIVITAMIN with MINERAL TABLET. PO SCH (09:08)
[2019-11-29] MEDS: APIXABAN 5 MG TABLET. PO SCH ×2 (09:08→20:13)
[2019-11-29] MEDS: LOSARTAN 25 MG TABLET. PO SCH (09:08)
[2019-11-29] MEDS: FUROSEMIDE 40 MG TABLET PO SCH (09:08)
[2019-11-29] MEDS: POTASSIUM CHLORIDE 20 MEQ TABLET.ER. PO SCH (09:08)
[2019-11-29] MEDS: AMIODARONE HCL 200 MG TABLET PO SCH (09:08)
[2019-11-29] MEDS: ASCORBIC ACID 500 MG TABLET PO SCH (09:09)
[2019-11-29] MEDS: CYANOCOBALAMIN (VITAMIN B-12) 1,000 MCG TABLET. PO SCH (09:09)
[2019-11-29] MEDS: NYSTATIN TOPICAL POWDER 15GM BOTTLE. TP SCH ×3 (09:09→20:12)
[2019-11-29] MEDS: PANTOPRAZOLE 40 MG TABLET. PO SCH (09:09)
[2019-11-29] MEDS: POLYVINYL ALCOHOL 1.4% OPHTH SOLUTION 15ML BOTTLE. OU SCH ×2 (09:09→20:12)
[2019-11-29 16:01] VITALS: BP 135/53
[2019-11-29] MEDS: ATORVASTATIN CALCIUM 10 MG TABLET. PO SCH (20:13)
[2019-11-29] MEDS: CHOLECALCIFEROL (VITAMIN D3) 1,000 UNIT TABLET PO SCH (20:13)
[2019-11-29] MEDS: traZODone 50 MG TABLET. PO SCH (20:13)
[2019-11-29] MEDS: METOPROLOL SUCC 24HR ER 50 MG TAB.ER.24H. PO SCH (20:13)
[2019-11-29 21:06] LABS: THYROXINE 10.5 ug/dL (4.5-12.0)
[2019-11-29] MEDS: traZODone 50 MG TABLET. PO PRN (21:31)
--- NOTE | 2019-11-29 21:43 | PDOC ---
Exam Note: Jamey Note: Please also refer to the separate dictated note~for this date of service dictated separately.~Patient seen individually. Discussed the patient with Nursing staff reviewed the chart.~Reviewed interim history and current functioning. Reviewed vital signs,~Labs/ Radiology~and current medications noted below. Continue current treatment with the changes noted in the dictated addendum note Assessment: Vital Signs/I&O: Vital Signs Date Time Temp Pulse Resp B/P (MAP) Pulse Ox O2 Delivery O2 Flow Rate FiO2 11/29/19 20:13 78 135/53 11/29/19 16:01 97.6 16 94 11/29/19 05:39 Room Air I & O 11/28/19 11/28/19 11/29/19 15:00 23:00 07:00 Intake Total 480 ml 120 ml Balance 480 ml 120 ml Labs: Laboratory Tests Test 11/29/19 05:59 11/29/19 07:39 11/29/19 12:22 11/29/19 16:27 Free Thyroxine 1.33 ng/dL (0.76-1.46) Thyroxine (T4) 10.5 ug/dL (4.5-12.0) Total Triiodothyronine (TT3) 54 ng/dL (71-180) L Glucose (Fingerstick) 93 mg/dL (70-99) 180 mg/dL (70-99) H 105 mg/dL (70-99) H Test 11/29/19 19:13 Glucose (Fingerstick) 118 mg/dL (70-99) H Current Medications: Meds: Current Medications Medications (Trade) Dose Ordered Sig/Dinh Route PRN Reason Start Time Stop Time Status Last Admin Dose Admin Risperidone (RisperDAL) 0.5 mg DAILY@1700 PO 11/29/19 17:00 11/28/19 20:19 Risperidone (RisperDAL) 0.25 mg DAILY PO 11/29/19 09:00 11/29/19 09:07 Trazodone HCl (Desyrel) 50 mg QHS PO 11/29/19 21:00 11/29/19 20:13 Trazodone HCl (Desyrel) 50 mg PRN QHS PRN PO insomnia 11/29/19 21:00 11/29/19 21:31 I have reviewed the current psychotropics carefully including drug interactions. Risk benefit ratio favors no change other than as noted in my dictated progress note. Diagnosis: Problems: (1) Impulse control disorder (2) Visual hallucinations (3) Anxiety disorder (4) Psychotic disorder (5) Dementia, vascular, with depression (6) Dementia, vascular, with delusions (7) Dementia in Alzheimer's disease with depression (8) Dementia in Alzheimer's disease with delusions (9) Major neurocognitive disorder VINITA PONCE MD Nov 29, 2019 21:43
--- NOTE | 2019-11-30 04:37 | PN ---
DATE: 11/28/2019 PSYCHIATRIC PROGRESS NOTE This late entry 11/28/2019 covers elements not covered in my initial note. SUBJECTIVE: I met with the patient evening of 11/28/2019. The patient slept 5-1/4 hours previous night. She did well during the day, but when I met with her in the evening, she was quite psychotic. She said she could see white snakes all around me and on her bed and hissing at her. She was quite anxious, restless about all of this, but talked at length about it with me in her room. REVIEW OF SYSTEMS: Ambulation impaired, in wheelchair. No CV, , pulmonary, eye system symptoms on review. MENTAL STATUS EXAM: Oriented to herself, at times situation. Speech is coherent, rapid at times. Abstraction fair, computation impaired, language function intact, attention span short. Mood and affect somewhat labile. LABORATORY DATA: Reviewed. IMPRESSION: Major neurocognitive disorder, early Alzheimer, vascular with delusions versus psychotic disorder, unspecified; anxiety disorder, unspecified. Rest unchanged. PLAN: Increase Risperdal from 0.5 mg at bedtime to 0.25 mg a.m. and 0.5 mg at 5 p.m. Maintain BuSpar along with Zyprexa p.r.n. Consider Depakote as a mood stabilizer. Adjust further as clinically indicated. MAN Joey PONCE MD DR: GIANNA/halle JOB#: [id number] / [id number]
[2019-11-30] MEDS: LEVOTHYROXINE 75 MCG TABLET PO SCH (04:54)
[2019-11-30 05:49] VITALS: BP 135/84
[2019-11-30] MEDS: INSULIN LISPRO 300 UNITS/3 ML VIAL. SQ SCH ×3 (08:12→17:25)
[2019-11-30] MEDS: NYSTATIN TOPICAL POWDER 15GM BOTTLE. TP SCH ×3 (10:04→20:02)
[2019-11-30] MEDS: POLYVINYL ALCOHOL 1.4% OPHTH SOLUTION 15ML BOTTLE. OU SCH ×2 (10:05→20:02)
[2019-11-30] MEDS: FUROSEMIDE 40 MG TABLET PO SCH (10:06)
[2019-11-30] MEDS: LOSARTAN 25 MG TABLET. PO SCH (10:06)
[2019-11-30] MEDS: metFORMIN 500 MG TABLET PO SCH ×2 (10:06→17:33)
[2019-11-30] MEDS: busPIRone 5 MG TABLET. PO SCH ×2 (10:06→20:01)
[2019-11-30] MEDS: AMIODARONE HCL 200 MG TABLET PO SCH (10:07)
[2019-11-30] MEDS: APIXABAN 5 MG TABLET. PO SCH ×2 (10:07→20:01)
[2019-11-30] MEDS: risperiDONE 0.25 MG TABLET. PO SCH (10:07)
[2019-11-30] MEDS: POTASSIUM CHLORIDE 20 MEQ TABLET.ER. PO SCH (10:08)
[2019-11-30] MEDS: LACTOBACILLUS RHAMNOSUS GG 1 CAPSULE. PO SCH (10:12)
[2019-11-30] MEDS: CYANOCOBALAMIN (VITAMIN B-12) 1,000 MCG TABLET. PO SCH (10:12)
[2019-11-30] MEDS: PANTOPRAZOLE 40 MG TABLET. PO SCH (10:12)
[2019-11-30] MEDS: MULTIVITAMIN with MINERAL TABLET. PO SCH (10:12)
[2019-11-30] MEDS: ASCORBIC ACID 500 MG TABLET PO SCH (10:13)
[2019-11-30 16:36] VITALS: BP 116/71
[2019-11-30] MEDS: risperiDONE 0.5 MG TABLET. PO SCH (17:33)
--- NOTE | 2019-11-30 19:46 | PN ---
DATE: 11/29/2019 PSYCHIATRIC PROGRESS NOTE This late entry 11/29/2019 covers elements not covered in my initial note. SUBJECTIVE: I met with the patient evening of 11/29/2019. Per CASEY Wilson, the patient slept 2-1/2 hours previous night. She gets anxious, restless, agitated frequently trying to get out of her wheelchair and is a fall risk. She hit the medications out of the hand of the nursing staff. WBC is 12.6, will defer to Dr. Calvin. She still talks about seeing a snake in her hand and has intermittent hallucinations, perhaps less intense than the previous evening when I met with her. UA is mixed rossy less than 100,000. REVIEW OF SYSTEMS: Ambulation impaired, in wheelchair. No CV, , pulmonary, eye system symptoms on review. MENTAL STATUS EXAM: Oriented to herself. Insight, judgment, recent and remote memory, attention, concentration, fund of knowledge poor, consistent with her diagnosis mentioned in my initial note. PLAN: No change from initial note. Risperdal has been increased. We will see how she does over the next day or so. Maintain BuSpar. Consider Depakote as a mood stabilizer for agitation, mood lability. MAN Joey PONCE MD DR: GIANNA/halle JOB#: [id number] / [id number]
[2019-11-30] MEDS: MIRTAZAPINE 7.5 MG TABLET. PO SCH (20:01)
[2019-11-30] MEDS: ATORVASTATIN CALCIUM 10 MG TABLET. PO SCH (20:01)
[2019-11-30] MEDS: CHOLECALCIFEROL (VITAMIN D3) 1,000 UNIT TABLET PO SCH (20:01)
[2019-11-30] MEDS: traZODone 50 MG TABLET. PO SCH (20:01)
[2019-11-30] MEDS: METOPROLOL SUCC 24HR ER 50 MG TAB.ER.24H. PO SCH (20:02)
--- NOTE | 2019-11-30 22:02 | PDOC ---
Exam Note: Jamey Note: Please also refer to the separate dictated note~for this date of service dictated separately.~Patient seen individually. Discussed the patient with Nursing staff reviewed the chart.~Reviewed interim history and current functioning. Reviewed vital signs,~Labs/ Radiology~and current medications noted below. Continue current treatment with the changes noted in the dictated addendum note Assessment: Vital Signs/I&O: Vital Signs Date Time Temp Pulse Resp B/P (MAP) Pulse Ox O2 Delivery O2 Flow Rate FiO2 11/30/19 20:02 60 116/71 11/30/19 16:36 97.4 18 95 11/29/19 05:39 Room Air I & O 11/29/19 11/29/19 11/30/19 15:00 23:00 07:00 Intake Total 840 ml 360 ml Balance 840 ml 360 ml Labs: Laboratory Tests Test 11/30/19 08:06 11/30/19 11:47 11/30/19 16:34 11/30/19 19:10 Glucose (Fingerstick) 125 mg/dL (70-99) H 142 mg/dL (70-99) H 130 mg/dL (70-99) H 162 mg/dL (70-99) H Current Medications: Meds: Current Medications Medications (Trade) Dose Ordered Sig/Dinh Route PRN Reason Start Time Stop Time Status Last Admin Dose Admin Mirtazapine (Remeron) 7.5 mg QHS PO 11/30/19 21:00 11/30/19 20:01 I have reviewed the current psychotropics carefully including drug interactions. Risk benefit ratio favors no change other than as noted in my dictated progress note. Diagnosis: Problems: (1) Impulse control disorder (2) Visual hallucinations (3) Anxiety disorder (4) Psychotic disorder (5) Dementia, vascular, with depression (6) Dementia, vascular, with delusions (7) Dementia in Alzheimer's disease with depression (8) Dementia in Alzheimer's disease with delusions (9) Major neurocognitive disorder VINITA PONCE MD Nov 30, 2019 22:02
[2019-11-30] MEDS: traZODone 50 MG TABLET. PO PRN (23:12)
[2019-12-01] MEDS: LEVOTHYROXINE 75 MCG TABLET PO SCH (04:50)
[2019-12-01 05:52] VITALS: BP 120/75
[2019-12-01] MEDS: INSULIN LISPRO 300 UNITS/3 ML VIAL. SQ SCH ×3 (08:15→17:07)
[2019-12-01] MEDS: PANTOPRAZOLE 40 MG TABLET. PO SCH (11:23)
[2019-12-01] MEDS: LACTOBACILLUS RHAMNOSUS GG 1 CAPSULE. PO SCH (11:23)
[2019-12-01] MEDS: ASCORBIC ACID 500 MG TABLET PO SCH (11:24)
[2019-12-01] MEDS: MULTIVITAMIN with MINERAL TABLET. PO SCH (11:24)
[2019-12-01] MEDS: CYANOCOBALAMIN (VITAMIN B-12) 1,000 MCG TABLET. PO SCH (11:24)
[2019-12-01] MEDS: APIXABAN 5 MG TABLET. PO SCH ×2 (11:55→20:18)
[2019-12-01] MEDS: AMIODARONE HCL 200 MG TABLET PO SCH (11:55)
[2019-12-01] MEDS: metFORMIN 500 MG TABLET PO SCH ×2 (11:55→17:06)
[2019-12-01] MEDS: POTASSIUM CHLORIDE 20 MEQ TABLET.ER. PO SCH (11:55)
[2019-12-01] MEDS: risperiDONE 0.5 MG TABLET. PO SCH ×2 (11:55→17:06)
[2019-12-01] MEDS: busPIRone 5 MG TABLET. PO SCH ×2 (11:55→20:18)
[2019-12-01] MEDS: LOSARTAN 25 MG TABLET. PO SCH (11:56)
[2019-12-01] MEDS: FUROSEMIDE 40 MG TABLET PO SCH (11:56)
[2019-12-01] MEDS: NYSTATIN TOPICAL POWDER 15GM BOTTLE. TP SCH ×3 (11:57→20:19)
[2019-12-01] MEDS: POLYVINYL ALCOHOL 1.4% OPHTH SOLUTION 15ML BOTTLE. OU SCH ×2 (11:57→20:19)
--- NOTE | 2019-12-01 12:34 | RAD ---
PQRS Compliance Statement: One or more of the following individualized dose reduction techniques were utilized for this examination: 1. Automated exposure control 2. Adjustment of the mA and/or kV according to patient size 3. Use of iterative reconstruction technique CT HEAD WITHOUT CONTRAST History: Visual and tactile hallucinations. Comparison: None available. Technique: Axial images are obtained of the head from the skull base through the vertex without IV contrast. Findings: No mass-effect, midline shift, extra-axial fluid collection, hemorrhage, or obvious acute infarction is identified. Basilar cisterns are patent. The ventricles and sulci are prominent, consistent with age-related cerebral atrophy. There is supratentorial white matter hypoattenuation. This is a nonspecific finding but is commonly due to chronic small vessel ischemic disease. Bone windows demonstrate no acute calvarial abnormality. Mucosal thickening bilateral maxillary and right sphenoid sinuses. There is no air-fluid levels in the bilateral maxillary sinuses. Mastoid air cells are well aerated. IMPRESSION: 1. No acute intracranial abnormality. 2. Air-fluid levels in the bilateral maxillary sinuses suggest acute sinusitis. 3. Age-related cerebral atrophy and periventricular white matter changes probably due to chronic small vessel ischemic disease. Electronically signed by: Dominic Echeverria MD (12/01/2019 12:31 PM) [id number]
[2019-12-01 14:53] LABS: BACTERIA,URINE MANY /HPF (0-FEW); BILIRUBIN,URINE NEG (NEG); CLARITY,URINE CLOUDY; COLOR,URINE YELLOW; GLUCOSE,URINE NEG (NEG); NITRITE,URINE NEG (NEG); SQUAMOUS EPITHELIAL CELL,UR MANY /LPF; WBC,URINE >40 /HPF (0-4)
[2019-12-01 16:01] VITALS: BP 138/90
[2019-12-01] MEDS: ATORVASTATIN CALCIUM 10 MG TABLET. PO SCH (20:18)
[2019-12-01] MEDS: CHOLECALCIFEROL (VITAMIN D3) 1,000 UNIT TABLET PO SCH (20:18)
[2019-12-01] MEDS: traZODone 50 MG TABLET. PO SCH (20:18)
[2019-12-01] MEDS: MIRTAZAPINE 7.5 MG TABLET. PO SCH (20:18)
[2019-12-01] MEDS: METOPROLOL SUCC 24HR ER 50 MG TAB.ER.24H. PO SCH (20:19)
[2019-12-01] MEDS: traZODone 50 MG TABLET. PO PRN (22:06)
--- NOTE | 2019-12-01 23:02 | PDOC ---
Exam Note: Jamey Note: Please also refer to the separate dictated note~for this date of service dictated separately.~Patient seen individually. Discussed the patient with Nursing staff reviewed the chart.~Reviewed interim history and current functioning. Reviewed vital signs,~Labs/ Radiology~and current medications noted below. Continue current treatment with the changes noted in the dictated addendum note Assessment: Vital Signs/I&O: Vital Signs Date Time Temp Pulse Resp B/P (MAP) Pulse Ox O2 Delivery O2 Flow Rate FiO2 12/01/19 20:19 92 138/90 12/01/19 16:01 98.1 20 98 11/29/19 05:39 Room Air I & O 11/30/19 11/30/19 12/01/19 15:00 23:00 07:00 Intake Total 600 ml 360 ml Balance 600 ml 360 ml Labs: Laboratory Tests Test 12/01/19 07:47 12/01/19 12:06 12/01/19 13:00 12/01/19 16:37 Glucose (Fingerstick) 107 mg/dL (70-99) H 138 mg/dL (70-99) H 186 mg/dL (70-99) H Urine Collection Type Unknown Urine Color Yellow Urine Clarity Cloudy Urine pH 6.0 Urine Specific [place] 1.025 Urine Protein Trace (NEG-TRACE) Urine Glucose (UA) Neg mg/dL (NEG) Urine Ketones (Stick) Neg mg/dL (NEG) Urine Blood Trace (NEG) Urine Nitrite Neg (NEG) Urine Bilirubin Neg (NEG) Urine Urobilinogen Dipstick 1.0 mg/dL (0.2 mg/dL) Urine Leukocyte Esterase Mod (NEG) Urine RBC 3-5 /HPF (0-2) Urine WBC >40 /HPF (0-4) Urine Squamous Epithelial Cells Many /LPF Urine Bacteria Many /HPF (0-FEW) Test 12/01/19 19:16 Glucose (Fingerstick) 130 mg/dL (70-99) H Current Medications: Meds: Current Medications Medications (Trade) Dose Ordered Sig/Dinh Route PRN Reason Start Time Stop Time Status Last Admin Dose Admin Risperidone (RisperDAL) 0.5 mg DAILY PO 12/01/19 09:00 12/01/19 11:55 I have reviewed the current psychotropics carefully including drug interactions. Risk benefit ratio favors no change other than as noted in my dictated progress note. Diagnosis: Problems: (1) Confusion (2) Impulse control disorder (3) Visual hallucinations (4) Anxiety disorder (5) Psychotic disorder (6) Dementia, vascular, with depression (7) Dementia, vascular, with delusions (8) Dementia in Alzheimer's disease with depression (9) Dementia in Alzheimer's disease with delusions (10) Major neurocognitive disorder VINITA PONCE MD Dec 01, 2019 23:02
[2019-12-02] MEDS: LEVOTHYROXINE 75 MCG TABLET PO SCH (05:12)
[2019-12-02 06:24] VITALS: BP 155/82
[2019-12-02] MEDS: INSULIN LISPRO 300 UNITS/3 ML VIAL. SQ SCH ×3 (08:00→17:00)
--- NOTE | 2019-12-02 10:18 | PN ---
DATE: 12/01/2019 PSYCHIATRIC PROGRESS NOTE This late entry of November 30 covers elements not covered in my initial note. SUBJECTIVE: I met with the patient evening of November 30 and staffed at treatment team meeting with the entire team and the patient's daughter, Kaylie, attended the treatment team meeting. The patient continues to have active hallucinations, seeing snakes all over her bed and in her clothes and crawling on her with visual and tactile hallucinations. The patient states she killed four snakes, refused her medications in the morning. We will repeat a UA, make sure UTI is not accounting for this. We did do a CT head, which shows no acute changes, age-related cerebral atrophy and periventricular white matter changes due to chronic small vessel ischemic disease most probably. REVIEW OF SYSTEMS: Positive for impaired ambulation. I met with her in her room in the evening. No CV, , pulmonary, eye system symptoms on review, but she has the active hallucinations, quite distressed by this. MENTAL STATUS EXAM: Oriented to herself and situation. Speech coherent, rapid at times. Abstraction fair. Computation impaired. Language function intact. Short term memory is impaired. Mood and affect remain labile. LABORATORY DATA: Reviewed. IMPRESSION: Major neurocognitive disorder, early vascular with delusion, depression; anxiety disorder, unspecified; impulse control disorder, unspecified. Rest unchanged. PLAN: Await UA results. Continue current psychotropics. Risperdal was increased. We may have to increase it further depending on how she does with the psychosis. VINITA PONCE MD DR: GIANNA/halle JOB#: [id number] / [id number]
[2019-12-02] MEDS: MULTIVITAMIN with MINERAL TABLET. PO SCH (10:46)
[2019-12-02] MEDS: AMIODARONE HCL 200 MG TABLET PO SCH (10:46)
[2019-12-02] MEDS: CYANOCOBALAMIN (VITAMIN B-12) 1,000 MCG TABLET. PO SCH (10:46)
[2019-12-02] MEDS: metFORMIN 500 MG TABLET PO SCH ×2 (10:46→16:56)
[2019-12-02] MEDS: busPIRone 5 MG TABLET. PO SCH ×2 (10:46→20:58)
[2019-12-02] MEDS: ASCORBIC ACID 500 MG TABLET PO SCH (10:47)
[2019-12-02] MEDS: LACTOBACILLUS RHAMNOSUS GG 1 CAPSULE. PO SCH (10:47)
[2019-12-02] MEDS: PANTOPRAZOLE 40 MG TABLET. PO SCH (10:47)
[2019-12-02] MEDS: APIXABAN 5 MG TABLET. PO SCH ×2 (10:47→21:00)
[2019-12-02] MEDS: POTASSIUM CHLORIDE 20 MEQ TABLET.ER. PO SCH (10:47)
[2019-12-02] MEDS: LOSARTAN 25 MG TABLET. PO SCH (10:48)
[2019-12-02] MEDS: risperiDONE 0.5 MG TABLET. PO SCH ×2 (10:48→16:56)
[2019-12-02] MEDS: FUROSEMIDE 40 MG TABLET PO SCH (10:48)
[2019-12-02] MEDS: POLYVINYL ALCOHOL 1.4% OPHTH SOLUTION 15ML BOTTLE. OU SCH ×2 (10:49→20:58)
[2019-12-02] MEDS: NYSTATIN TOPICAL POWDER 15GM BOTTLE. TP SCH ×3 (10:49→20:58)
[2019-12-02 16:38] VITALS: BP 93/64
--- NOTE | 2019-12-02 17:29 | PN ---
DATE: 11/30/2019 PSYCHIATRIC PROGRESS NOTE This late entry 11/30/2019 covers elements not covered in my initial note. SUBJECTIVE: I met with the patient evening of 11/30/2019. Per CASEY Wilson, the patient continues to have active hallucinations, seeing snakes in her pants and in the shower, refusing medications, later cooperative with showers. Did receive trazodone x 2 at night for insomnia. REVIEW OF SYSTEMS: Impaired ambulation, in wheelchair. No CV, , pulmonary, eye system symptoms on review. MENTAL STATUS EXAM: Oriented to herself and situation. Speech is coherent, abstraction fair, computation impaired, language function intact. Mood and affect remain somewhat labile. LABORATORY DATA: Reviewed. IMPRESSION: Major neurocognitive disorder, probably vascular with delusion, depression, behavioral disturbance. Rest unchanged. Psychotic disorder, unspecified. PLAN: Increase Risperdal from 0.25 mg 9 a.m., 0.5 mg at 1700 to 0.5 mg twice a day. Maintain BuSpar along with Zyprexa p.r.n. Rest unchanged for now. We may consider having a UA and CT head workup of her psychosis. VINITA PONCE MD DR: GIANNA/halle JOB#: [id number] / [id number]
[2019-12-02] MEDS: METOPROLOL SUCC 24HR ER 50 MG TAB.ER.24H. PO SCH (20:59)
[2019-12-02] MEDS: ATORVASTATIN CALCIUM 10 MG TABLET. PO SCH (20:59)
[2019-12-02] MEDS: MIRTAZAPINE 7.5 MG TABLET. PO SCH (20:59)
[2019-12-02] MEDS: CHOLECALCIFEROL (VITAMIN D3) 1,000 UNIT TABLET PO SCH (21:00)
[2019-12-02] MEDS: traZODone 50 MG TABLET. PO SCH (21:00)
--- NOTE | 2019-12-02 22:54 | PDOC ---
Exam Note: Jamey Note: Please also refer to the separate dictated note~for this date of service dictated separately Discussed the patient with Nursing staff reviewed the chart.~Reviewed interim history and current functioning. Reviewed vital signs,~Labs/ Radiology~and current medications noted below. Continue current treatment with the changes noted in the dictated addendum note Assessment: Vital Signs/I&O: Vital Signs Date Time Temp Pulse Resp B/P (MAP) Pulse Ox O2 Delivery O2 Flow Rate FiO2 12/02/19 20:59 62 93/64 12/02/19 16:38 97.1 16 95 12/02/19 06:24 Room Air I & O 12/01/19 12/01/19 12/02/19 15:00 23:00 07:00 Intake Total 480 ml 120 ml Balance 480 ml 120 ml Labs: Laboratory Tests Test 12/02/19 07:50 12/02/19 12:07 12/02/19 17:11 12/02/19 19:56 Glucose (Fingerstick) 136 mg/dL (70-99) H 128 mg/dL (70-99) H 144 mg/dL (70-99) H 171 mg/dL (70-99) H Current Medications: I have reviewed the current psychotropics carefully including drug interactions. Risk benefit ratio favors no change other than as noted in my dictated progress note. Diagnosis: Problems: (1) Confusion (2) Impulse control disorder (3) Visual hallucinations (4) Anxiety disorder (5) Psychotic disorder (6) Dementia, vascular, with depression (7) Dementia, vascular, with delusions (8) Dementia in Alzheimer's disease with depression (9) Dementia in Alzheimer's disease with delusions (10) Major neurocognitive disorder VINITA PONCE MD Dec 02, 2019 22:54
[2019-12-03] MEDS: LEVOTHYROXINE 75 MCG TABLET PO SCH (06:13)
[2019-12-03 06:51] VITALS: BP 124/76
[2019-12-03] MEDS: INSULIN LISPRO 300 UNITS/3 ML VIAL. SQ SCH ×3 (08:00→17:00)
[2019-12-03] MEDS: PANTOPRAZOLE 40 MG TABLET. PO SCH (09:00)
[2019-12-03] MEDS: AMIODARONE HCL 200 MG TABLET PO SCH (09:00)
[2019-12-03] MEDS: MULTIVITAMIN with MINERAL TABLET. PO SCH (09:01)
[2019-12-03] MEDS: ASCORBIC ACID 500 MG TABLET PO SCH (09:01)
[2019-12-03] MEDS: FUROSEMIDE 40 MG TABLET PO SCH (09:01)
[2019-12-03] MEDS: LACTOBACILLUS RHAMNOSUS GG 1 CAPSULE. PO SCH (09:01)
[2019-12-03] MEDS: LOSARTAN 25 MG TABLET. PO SCH (09:01)
[2019-12-03] MEDS: APIXABAN 5 MG TABLET. PO SCH ×2 (09:01→20:35)
[2019-12-03] MEDS: CYANOCOBALAMIN (VITAMIN B-12) 1,000 MCG TABLET. PO SCH (09:01)
[2019-12-03] MEDS: risperiDONE 0.5 MG TABLET. PO SCH ×2 (09:01→17:00)
[2019-12-03] MEDS: POTASSIUM CHLORIDE 20 MEQ TABLET.ER. PO SCH (09:02)
[2019-12-03] MEDS: busPIRone 5 MG TABLET. PO SCH ×2 (09:02→20:35)
[2019-12-03] MEDS: POLYVINYL ALCOHOL 1.4% OPHTH SOLUTION 15ML BOTTLE. OU SCH ×2 (09:02→20:33)
[2019-12-03] MEDS: metFORMIN 500 MG TABLET PO SCH ×2 (09:02→17:00)
[2019-12-03] MEDS: NYSTATIN TOPICAL POWDER 15GM BOTTLE. TP SCH ×3 (09:03→20:33)
[2019-12-03 16:06] VITALS: BP 92/60
[2019-12-03] MEDS: MIRTAZAPINE 7.5 MG TABLET. PO SCH (20:34)
[2019-12-03] MEDS: CHOLECALCIFEROL (VITAMIN D3) 1,000 UNIT TABLET PO SCH (20:34)
[2019-12-03] MEDS: ATORVASTATIN CALCIUM 10 MG TABLET. PO SCH (20:35)
[2019-12-03] MEDS: traZODone 50 MG TABLET. PO SCH (20:35)
[2019-12-03] MEDS: METOPROLOL SUCC 24HR ER 50 MG TAB.ER.24H. PO SCH (20:38)
--- NOTE | 2019-12-03 22:41 | PDOC ---
Exam Note: Jamey Note: Please also refer to the separate dictated note~for this date of service dictated separately. Discussed the patient with Nursing staff reviewed the chart.~Reviewed interim history and current functioning. Reviewed vital signs,~Labs/ Radiology~and current medications noted below. Continue current treatment with the changes noted in the dictated addendum note Assessment: Vital Signs/I&O: Vital Signs Date Time Temp Pulse Resp B/P (MAP) Pulse Ox O2 Delivery O2 Flow Rate FiO2 12/03/19 20:38 60 92/60 12/03/19 16:06 96.9 20 96 12/03/19 06:51 Room Air I & O 12/02/19 12/02/19 12/03/19 15:00 23:00 07:00 Intake Total 480 ml 240 ml 100 ml Balance 480 ml 240 ml 100 ml Labs: Laboratory Tests Test 12/03/19 07:32 12/03/19 17:10 12/03/19 19:20 Glucose (Fingerstick) 111 mg/dL (70-99) H 128 mg/dL (70-99) H 125 mg/dL (70-99) H Current Medications: I have reviewed the current psychotropics carefully including drug interactions. Risk benefit ratio favors no change other than as noted in my dictated progress note. Diagnosis: Problems: (1) Confusion (2) Impulse control disorder (3) Visual hallucinations (4) Anxiety disorder (5) Psychotic disorder (6) Dementia, vascular, with depression (7) Dementia, vascular, with delusions (8) Dementia in Alzheimer's disease with depression (9) Dementia in Alzheimer's disease with delusions (10) Major neurocognitive disorder VINITA PONCE MD Dec 03, 2019 22:41
[2019-12-04 06:11] VITALS: BP 127/88
[2019-12-04] MEDS: LEVOTHYROXINE 75 MCG TABLET PO SCH (06:13)
[2019-12-04] MEDS: INSULIN LISPRO 300 UNITS/3 ML VIAL. SQ SCH ×3 (08:00→17:00)
[2019-12-04] MEDS: risperiDONE 0.5 MG TABLET. PO SCH ×2 (08:15→17:04)
[2019-12-04] MEDS: ASCORBIC ACID 500 MG TABLET PO SCH (08:15)
[2019-12-04] MEDS: LACTOBACILLUS RHAMNOSUS GG 1 CAPSULE. PO SCH (08:15)
[2019-12-04] MEDS: LOSARTAN 25 MG TABLET. PO SCH (08:16)
[2019-12-04] MEDS: busPIRone 5 MG TABLET. PO SCH ×2 (08:16→20:27)
[2019-12-04] MEDS: APIXABAN 5 MG TABLET. PO SCH ×2 (08:17→20:30)
[2019-12-04] MEDS: AMIODARONE HCL 200 MG TABLET PO SCH (08:17)
[2019-12-04] MEDS: MULTIVITAMIN with MINERAL TABLET. PO SCH (08:17)
[2019-12-04] MEDS: metFORMIN 500 MG TABLET PO SCH ×2 (08:17→17:04)
[2019-12-04] MEDS: PANTOPRAZOLE 40 MG TABLET. PO SCH (08:18)
[2019-12-04] MEDS: CYANOCOBALAMIN (VITAMIN B-12) 1,000 MCG TABLET. PO SCH (08:18)
[2019-12-04] MEDS: FUROSEMIDE 40 MG TABLET PO SCH (08:18)
[2019-12-04] MEDS: POTASSIUM CHLORIDE 20 MEQ TABLET.ER. PO SCH (08:18)
[2019-12-04] MEDS: POLYVINYL ALCOHOL 1.4% OPHTH SOLUTION 15ML BOTTLE. OU SCH ×2 (08:19→20:26)
[2019-12-04] MEDS: NYSTATIN TOPICAL POWDER 15GM BOTTLE. TP SCH ×3 (08:20→20:26)
[2019-12-04 11:58] LABS: BASO % 0 % (0-3); EOS # 0.3 x10^3/uL (0.0-0.7); EOS % 3 % (0-3); HEMATOCRIT 37.6 % (36.0-47.0); HEMOGLOBIN 12.3 g/dL (12.0-15.5); LYMPH # 0.6 x10^3/uL (1.0-4.8); LYMPH % 6 % (24-48); MEAN CORPUSCULAR HEMOGLOBIN 30 pg (25-35); MEAN CORPUSCULAR HGB CONC 33 g/dL (31-37); MEAN CORPUSCULAR VOLUME 91 fL (79-100); MONO # 0.7 x10^3/uL (0.0-1.1); MONO % 7 % (0-9); NEUT # 8.8 x10^3uL (1.8-7.7); NEUT % 84 % (31-73); PLATELET COUNT 245 x10^3/uL (140-400); RED BLOOD COUNT 4.13 x10^6/uL (3.50-5.40); RED CELL DISTRIBUTION WIDTH 15.8 % (11.5-14.5); WHITE BLOOD COUNT 10.4 x10^3/uL (4.0-11.0)
[2019-12-04 12:20] LABS: ALBUMIN 2.6 g/dL (3.4-5.0); ALBUMIN/GLOBULIN RATIO 0.7 (1.0-1.7); CALCIUM 8.5 mg/dL (8.5-10.1); CREATININE 1.4 mg/dL (0.6-1.0); GFR 35.5; POTASSIUM 3.8 mmol/L (3.5-5.1); TOTAL BILIRUBIN 0.2 mg/dL (0.2-1.0); TOTAL PROTEIN 6.4 g/dL (6.4-8.2)
[2019-12-04 16:32] VITALS: BP 116/87
[2019-12-04] MEDS: CHOLECALCIFEROL (VITAMIN D3) 1,000 UNIT TABLET PO SCH (20:27)
[2019-12-04] MEDS: MIRTAZAPINE 7.5 MG TABLET. PO SCH (20:28)
[2019-12-04] MEDS: METOPROLOL SUCC 24HR ER 50 MG TAB.ER.24H. PO SCH (20:28)
[2019-12-04] MEDS: ATORVASTATIN CALCIUM 10 MG TABLET. PO SCH (20:29)
[2019-12-04] MEDS: DOXYCYCLINE HYCLATE 100 MG TABLET PO SCH (20:30)
[2019-12-04] MEDS: traZODone 50 MG TABLET. PO SCH (20:30)
--- NOTE | 2019-12-04 21:47 | PDOC ---
Exam Note: Jamey Note: Please also refer to the separate dictated note~for this date of service dictated separately. Discussed the patient with Nursing staff reviewed the chart.~Reviewed interim history and current functioning. Reviewed vital signs,~Labs/ Radiology~and current medications noted below. Continue current treatment with the changes noted in the dictated addendum note Assessment: Vital Signs/I&O: Vital Signs Date Time Temp Pulse Resp B/P (MAP) Pulse Ox O2 Delivery O2 Flow Rate FiO2 12/04/19 20:28 61 116/87 12/04/19 16:32 97.4 18 96 Room Air I & O 12/03/19 12/03/19 12/04/19 15:00 23:00 07:00 Intake Total 480 ml 580 ml Balance 480 ml 580 ml Labs: Laboratory Tests Test 12/04/19 07:48 12/04/19 10:40 12/04/19 11:45 12/04/19 17:11 Glucose (Fingerstick) 140 mg/dL (70-99) H 267 mg/dL (70-99) H 89 mg/dL (70-99) White Blood Count 10.4 x10^3/uL (4.0-11.0) Red Blood Count 4.13 x10^6/uL (3.50-5.40) Hemoglobin 12.3 g/dL (12.0-15.5) Hematocrit 37.6 % (36.0-47.0) Mean Corpuscular Volume 91 fL (79-100) Mean Corpuscular Hemoglobin 30 pg (25-35) Mean Corpuscular Hemoglobin Concent 33 g/dL (31-37) Red Cell Distribution Width 15.8 % (11.5-14.5) H Platelet Count 245 x10^3/uL (140-400) Neutrophils (%) (Auto) 84 % (31-73) H Lymphocytes (%) (Auto) 6 % (24-48) L Monocytes (%) (Auto) 7 % (0-9) Eosinophils (%) (Auto) 3 % (0-3) Basophils (%) (Auto) 0 % (0-3) Neutrophils # (Auto) 8.8 x10^3uL (1.8-7.7) H Lymphocytes # (Auto) 0.6 x10^3/uL (1.0-4.8) L Monocytes # (Auto) 0.7 x10^3/uL (0.0-1.1) Eosinophils # (Auto) 0.3 x10^3/uL (0.0-0.7) Basophils # (Auto) 0.0 x10^3/uL (0.0-0.2) Sodium Level 143 mmol/L (136-145) Potassium Level 3.8 mmol/L (3.5-5.1) Chloride Level 107 mmol/L (98-107) Carbon Dioxide Level 25 mmol/L (21-32) Anion Gap 11 (6-14) Blood Urea Nitrogen 36 mg/dL (7-20) H Creatinine 1.4 mg/dL (0.6-1.0) H Estimated GFR (Cockcroft-Gault) 35.5 BUN/Creatinine Ratio 26 (6-20) H Glucose Level 207 mg/dL (70-99) H Calcium Level 8.5 mg/dL (8.5-10.1) Total Bilirubin 0.2 mg/dL (0.2-1.0) Aspartate Amino Transferase (AST) 49 U/L (15-37) H Alanine Aminotransferase (ALT) 54 U/L (14-59) Alkaline Phosphatase 83 U/L (46-116) Total Protein 6.4 g/dL (6.4-8.2) Albumin 2.6 g/dL (3.4-5.0) L Albumin/Globulin Ratio 0.7 (1.0-1.7) L Test 12/04/19 19:40 Glucose (Fingerstick) 194 mg/dL (70-99) H Current Medications: Meds: Current Medications Medications (Trade) Dose Ordered Sig/Dinh Route PRN Reason Start Time Stop Time Status Last Admin Dose Admin Doxycycline Hyclate (Vibra-Tab) 100 mg BID PO 12/04/19 21:00 12/13/19 20:59 12/04/19 20:30 I have reviewed the current psychotropics carefully including drug interactions. Risk benefit ratio favors no change other than as noted in my dictated progress note. Diagnosis: Problems: (1) Confusion (2) Impulse control disorder (3) Visual hallucinations (4) Anxiety disorder (5) Psychotic disorder (6) Dementia, vascular, with depression (7) Dementia, vascular, with delusions (8) Dementia in Alzheimer's disease with depression (9) Dementia in Alzheimer's disease with delusions (10) Major neurocognitive disorder VINITA PONCE MD Dec 04, 2019 21:47
[2019-12-05] MEDS: LEVOTHYROXINE 75 MCG TABLET PO SCH (05:18)
[2019-12-05 06:07] VITALS: BP 143/82
[2019-12-05] MEDS: DOXYCYCLINE HYCLATE 100 MG TABLET PO SCH ×2 (09:03→19:42)
[2019-12-05] MEDS: busPIRone 5 MG TABLET. PO SCH ×2 (09:03→19:43)
[2019-12-05] MEDS: metFORMIN 500 MG TABLET PO SCH ×2 (09:03→17:03)
[2019-12-05] MEDS: LACTOBACILLUS RHAMNOSUS GG 1 CAPSULE. PO SCH (09:03)
[2019-12-05] MEDS: APIXABAN 5 MG TABLET. PO SCH ×2 (09:03→19:43)
[2019-12-05] MEDS: FUROSEMIDE 40 MG TABLET PO SCH (09:03)
[2019-12-05] MEDS: LOSARTAN 25 MG TABLET. PO SCH (09:04)
[2019-12-05] MEDS: risperiDONE 0.5 MG TABLET. PO SCH ×2 (09:04→17:03)
[2019-12-05] MEDS: MULTIVITAMIN with MINERAL TABLET. PO SCH (09:05)
[2019-12-05] MEDS: CYANOCOBALAMIN (VITAMIN B-12) 1,000 MCG TABLET. PO SCH (09:05)
[2019-12-05] MEDS: POTASSIUM CHLORIDE 20 MEQ TABLET.ER. PO SCH (09:05)
[2019-12-05] MEDS: AMIODARONE HCL 200 MG TABLET PO SCH (09:05)
[2019-12-05] MEDS: NYSTATIN TOPICAL POWDER 15GM BOTTLE. TP SCH ×3 (09:09→19:44)
[2019-12-05] MEDS: PANTOPRAZOLE 40 MG TABLET. PO SCH (09:09)
[2019-12-05] MEDS: POLYVINYL ALCOHOL 1.4% OPHTH SOLUTION 15ML BOTTLE. OU SCH ×2 (09:09→19:42)
[2019-12-05] MEDS: ASCORBIC ACID 500 MG TABLET PO SCH (09:09)
[2019-12-05] MEDS: INSULIN LISPRO 300 UNITS/3 ML VIAL. SQ SCH ×3 (09:59→17:00)
--- NOTE | 2019-12-05 13:59 | PN ---
DATE: 12/04/2019 PSYCHIATRIC PROGRESS NOTE This note covers elements not covered in my initial note of 12/04/2019. SUBJECTIVE: Nato Potts RN, the patient's UA came back positive. She is on doxycycline for UTI. She continues to be intermittently paranoid, psychotic, confused. REVIEW OF SYSTEMS: Ambulation impaired, in wheelchair. No specific CV, or pulmonary system symptoms on review. MENTAL STATUS EXAM: Oriented to herself. Insight, judgment, recent memory is impaired. Language function intact. Mood and affect remains withdrawn. LABORATORY DATA: Reviewed. IMPRESSION: Unchanged from initial note including urinary tract infection. PLAN: No change from initial note. MAN Joey PONCE MD DR: GIANNA/halle JOB#: [id number] / [id number]
[2019-12-05 16:22] VITALS: BP 116/64
[2019-12-05] MEDS: ATORVASTATIN CALCIUM 10 MG TABLET. PO SCH (19:42)
[2019-12-05] MEDS: traZODone 50 MG TABLET. PO SCH (19:42)
[2019-12-05] MEDS: MIRTAZAPINE 7.5 MG TABLET. PO SCH (19:43)
[2019-12-05] MEDS: METOPROLOL SUCC 24HR ER 50 MG TAB.ER.24H. PO SCH (19:43)
[2019-12-05] MEDS: CHOLECALCIFEROL (VITAMIN D3) 1,000 UNIT TABLET PO SCH (19:43)
--- NOTE | 2019-12-05 21:51 | PDOC ---
Exam Note: Jamey Note: Please also refer to the separate dictated note~for this date of service dictated separately. Discussed the patient with Nursing staff reviewed the chart.~Reviewed interim history and current functioning. Reviewed vital signs,~Labs/ Radiology~and current medications noted below. Continue current treatment with the changes noted in the dictated addendum note Assessment: Vital Signs/I&O: Vital Signs Date Time Temp Pulse Resp B/P (MAP) Pulse Ox O2 Delivery O2 Flow Rate FiO2 12/05/19 19:43 60 116/64 12/05/19 16:22 98.1 16 93 12/04/19 16:32 Room Air I & O 12/04/19 12/04/19 12/05/19 15:00 23:00 07:00 Intake Total 480 ml 480 ml Balance 480 ml 480 ml Labs: Laboratory Tests Test 12/05/19 07:51 12/05/19 11:54 12/05/19 17:01 12/05/19 19:52 Glucose (Fingerstick) 164 mg/dL (70-99) H 74 mg/dL (70-99) 91 mg/dL (70-99) 105 mg/dL (70-99) H Current Medications: I have reviewed the current psychotropics carefully including drug interactions. Risk benefit ratio favors no change other than as noted in my dictated progress note. 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
[2019-12-06] MEDS: LEVOTHYROXINE 75 MCG TABLET PO SCH (03:27)
[2019-12-06 05:47] VITALS: BP 137/72
[2019-12-06] MEDS: INSULIN LISPRO 300 UNITS/3 ML VIAL. SQ SCH ×3 (08:00→17:00)
[2019-12-06] MEDS: APIXABAN 5 MG TABLET. PO SCH ×2 (08:47→20:07)
[2019-12-06] MEDS: FUROSEMIDE 40 MG TABLET PO SCH (08:47)
[2019-12-06] MEDS: metFORMIN 500 MG TABLET PO SCH ×2 (08:47→17:14)
[2019-12-06] MEDS: ASCORBIC ACID 500 MG TABLET PO SCH (08:48)
[2019-12-06] MEDS: CYANOCOBALAMIN (VITAMIN B-12) 1,000 MCG TABLET. PO SCH (08:48)
[2019-12-06] MEDS: LACTOBACILLUS RHAMNOSUS GG 1 CAPSULE. PO SCH (08:48)
[2019-12-06] MEDS: MULTIVITAMIN with MINERAL TABLET. PO SCH (08:48)
[2019-12-06] MEDS: AMIODARONE HCL 200 MG TABLET PO SCH (08:48)
[2019-12-06] MEDS: DOXYCYCLINE HYCLATE 100 MG TABLET PO SCH ×2 (08:48→20:05)
[2019-12-06] MEDS: POTASSIUM CHLORIDE 20 MEQ TABLET.ER. PO SCH (08:48)
[2019-12-06] MEDS: LOSARTAN 25 MG TABLET. PO SCH (08:49)
[2019-12-06] MEDS: PANTOPRAZOLE 40 MG TABLET. PO SCH (08:49)
[2019-12-06] MEDS: POLYVINYL ALCOHOL 1.4% OPHTH SOLUTION 15ML BOTTLE. OU SCH ×2 (08:49→20:05)
[2019-12-06] MEDS: risperiDONE 0.5 MG TABLET. PO SCH ×2 (08:49→17:14)
[2019-12-06] MEDS: busPIRone 5 MG TABLET. PO SCH ×2 (08:49→20:05)
[2019-12-06] MEDS: NYSTATIN TOPICAL POWDER 15GM BOTTLE. TP SCH ×3 (08:50→20:05)
[2019-12-06 15:39] VITALS: BP 98/55
[2019-12-06] MEDS: CHOLECALCIFEROL (VITAMIN D3) 1,000 UNIT TABLET PO SCH (20:06)
[2019-12-06] MEDS: MIRTAZAPINE 7.5 MG TABLET. PO SCH (20:06)
[2019-12-06] MEDS: ATORVASTATIN CALCIUM 10 MG TABLET. PO SCH (20:07)
[2019-12-06] MEDS: traZODone 50 MG TABLET. PO SCH (20:07)
[2019-12-06] MEDS: METOPROLOL SUCC 24HR ER 50 MG TAB.ER.24H. PO SCH (20:11)
[2019-12-07] MEDS: LEVOTHYROXINE 75 MCG TABLET PO SCH (03:54)
[2019-12-07 06:04] VITALS: BP 118/71
--- NOTE | 2019-12-07 06:46 | PDOC ---
Exam Note: Jamey Note: This is a late entry for 12/02/2019. Currently, the unit is shutdown for any admissions and discharges as directed by the Centers for Disease Control (CDC) and the [facility] ([facility]) because of Coronavirus (COVID-19) exposure on the unit. S/O: This is a Telepsychiatry Progress Note. This note covers elements not covered in my initial note. The patient was reviewed with nursing staff, reviewed the chart and TeleHealth Services provided for this date for the patient. Discussed with CASEY Pappas. She slept for 5 hours No hallucinations, not seeing any snakes, remains a little delusional, states she was signed up for a ride to go home. ROS: No CV, , Pulmonary system symptoms on review. MSE: Oriented to herself and situation. Speech is coherent, rapid at times, has some latency. Abstraction fair. Computation impaired. Language function is intact. Mood and affect somewhat anxious, labile. Labs: Reviewed. Imp: Major neurocognitive disorder Alzheimer vascular with delusion, depression, behavioral disturbance. Anxiety disorder unspecified. Impulse control disorder unspecified. Plan: Unchanged from my initial note. Assessment: Vital Signs/I&O: Vital Signs Date Time Temp Pulse Resp B/P (MAP) Pulse Ox O2 Delivery O2 Flow Rate FiO2 12/07/19 06:04 97.8 60 20 118/71 (87) 94 12/04/19 16:32 Room Air I & O 12/06/19 12/06/19 12/07/19 15:00 23:00 07:00 Intake Total 480 ml 340 ml Balance 480 ml 340 ml Labs: Laboratory Tests Test 12/06/19 07:58 12/06/19 12:05 12/06/19 16:44 12/06/19 18:58 Glucose (Fingerstick) 114 mg/dL (70-99) H 170 mg/dL (70-99) H 102 mg/dL (70-99) H 144 mg/dL (70-99) H Current Medications: I have reviewed the current psychotropics carefully including drug interactions. Risk benefit ratio favors no change other than as noted in my dictated progress note. 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
--- NOTE | 2019-12-07 07:29 | PDOC ---
Exam Note: Jamey Note: This is a late entry for 12/03/2019. Currently, the unit is shutdown for any admissions and discharges as directed by the Centers for Disease Control (CDC) and the [facility] ([facility]) because of Coronavirus (COVID-19) exposure on the unit. S/O: This note covers elements not covered in my initial note. The patient was reviewed with nursing staff, reviewed the chart and TeleHealth Services provided for this date for the patient. Discussed with CASEY Potts. She slept for 5-3/4 hours. She refused medications. ROS: No CV, , Pulmonary system symptoms on review. MSE: Oriented to herself and situation. Speech is coherent, rapid. Abstraction fair. Computation impaired. Language function is intact. Mood and affect anxious, labile. Labs: Reviewed. Imp: Major neurocognitive disorder Alzheimer vascular with delusion, depres ward, behavioral disturbance. Anxiety disorder unspecified. Impulse control disorder unspecified. Plan: Unchanged from my initial note. Assessment: Vital Signs/I&O: Vital Signs Date Time Temp Pulse Resp B/P (MAP) Pulse Ox O2 Delivery O2 Flow Rate FiO2 12/07/19 06:04 97.8 60 20 118/71 (87) 94 12/04/19 16:32 Room Air I & O 12/06/19 12/06/19 12/07/19 14:59 22:59 06:59 Intake Total 480 ml 340 ml Balance 480 ml 340 ml Labs: Laboratory Tests Test 12/06/19 07:58 12/06/19 12:05 12/06/19 16:44 12/06/19 18:58 Glucose (Fingerstick) 114 mg/dL (70-99) H 170 mg/dL (70-99) H 102 mg/dL (70-99) H 144 mg/dL (70-99) H Current Medications: I have reviewed the current psychotropics carefully including drug interactions. Risk benefit ratio favors no change other than as noted in my dictated progress note. 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
[2019-12-07] MEDS: INSULIN LISPRO 300 UNITS/3 ML VIAL. SQ SCH ×3 (08:00→17:00)
--- NOTE | 2019-12-07 08:24 | PDOC ---
Exam Note: Jamey Note: This is a late entry for 12/05/2019. Currently, the unit is shutdown for any admissions and discharges as directed by the Centers for Disease Control (CDC) and the [facility] ([facility]) because of Coronavirus (COVID-19) exposure on the unit. S/O: This note covers elements not covered in my initial note. The patient was reviewed with nursing staff, reviewed the chart and TeleHealth Services provided for this date for the patient. Discussed with CASEY Potts. She has not been voicing seeing any snakes or feeling any on her body. ROS: No CV, , Pulmonary system symptoms on review. MSE: Oriented to herself and situation. Speech is coherent. Abstraction fair. Computation impaired. Language function is intact. Mood and affect anxious. Labs: Reviewed. Imp: Major neurocognitive disorder Alzheimer vascular with delusion, de pression, behavioral disturbance. Anxiety disorder unspecified. Impulse control disorder unspecified. Plan: Unchanged from my initial note. Assessment: Vital Signs/I&O: Vital Signs Date Time Temp Pulse Resp B/P (MAP) Pulse Ox O2 Delivery O2 Flow Rate FiO2 12/07/19 06:04 97.8 60 20 118/71 (87) 94 12/04/19 16:32 Room Air I & O 12/06/19 12/06/19 12/07/19 15:00 23:00 07:00 Intake Total 480 ml 340 ml Balance 480 ml 340 ml Labs: Laboratory Tests Test 12/06/19 12:05 12/06/19 16:44 12/06/19 18:58 12/07/19 07:48 Glucose (Fingerstick) 170 mg/dL (70-99) H 102 mg/dL (70-99) H 144 mg/dL (70-99) H 133 mg/dL (70-99) H Current Medications: I have reviewed the current psychotropics carefully including drug interactions. Risk benefit ratio favors no change other than as noted in my dictated progress note. 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
--- NOTE | 2019-12-07 08:52 | PDOC ---
Exam Note: Jamey Note: This is a late entry for 12/06/2019. Currently, the unit is shutdown for any admissions and discharges as directed by the Centers for Disease Control (CDC) and the [facility] ([facility]) because of Coronavirus (COVID-19) exposure on the unit. S/O: This note covers elements not covered in my initial note. The patient was reviewed with nursing staff, reviewed the chart and TeleHealth Services provided for this date for the patient. She was seen on a video-conferencing call coordinated with Marlon PEÑA, nursing staff on the unit whose appropriately protected with personal protective equipment and mask on the unit. Discussed with CASEY Jackman. Slept 6 hours previous night, refused her supper, spends much time in her room, comes out for meals. No hallucinations noted, at times she refuses medications. These have to be hidden to help with compliance. ROS: No CV, , Pulmonary system symptoms on review. MSE: Oriented to herself and situation. Speech is coherent. Abstraction fair. Computation impaired. Language function is intact. Mood and affect anxious. Labs: Reviewed. Imp: Major neurocognitive disorder Alzheimer vascular with delusion, depression, behavioral disturbance. Anxiety disorder unspecified. Impulse control disorder unspecified. Plan: Unchanged from my initial note. Assessment: Vital Signs/I&O: Vital Signs Date Time Temp Pulse Resp B/P (MAP) Pulse Ox O2 Delivery O2 Flow Rate FiO2 12/07/19 06:04 97.8 60 20 118/71 (87) 94 12/04/19 16:32 Room Air I & O 12/06/19 12/06/19 12/07/19 15:00 23:00 07:00 Intake Total 480 ml 340 ml Balance 480 ml 340 ml Labs: Laboratory Tests Test 12/06/19 12:05 12/06/19 16:44 12/06/19 18:58 12/07/19 07:48 Glucose (Fingerstick) 170 mg/dL (70-99) H 102 mg/dL (70-99) H 144 mg/dL (70-99) H 133 mg/dL (70-99) H Current Medications: I have reviewed the current psychotropics carefully including drug interactions. Risk benefit ratio favors no change other than as noted in my dictated progress note. 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
[2019-12-07] MEDS: AMIODARONE HCL 200 MG TABLET PO SCH (09:37)
[2019-12-07] MEDS: ASCORBIC ACID 500 MG TABLET PO SCH (09:38)
[2019-12-07] MEDS: metFORMIN 500 MG TABLET PO SCH ×2 (09:38→17:24)
[2019-12-07] MEDS: CYANOCOBALAMIN (VITAMIN B-12) 1,000 MCG TABLET. PO SCH (09:38)
[2019-12-07] MEDS: LOSARTAN 25 MG TABLET. PO SCH (09:39)
[2019-12-07] MEDS: DOXYCYCLINE HYCLATE 100 MG TABLET PO SCH ×2 (09:39→20:30)
[2019-12-07] MEDS: busPIRone 5 MG TABLET. PO SCH ×2 (09:39→20:28)
[2019-12-07] MEDS: LACTOBACILLUS RHAMNOSUS GG 1 CAPSULE. PO SCH (09:39)
[2019-12-07] MEDS: FUROSEMIDE 40 MG TABLET PO SCH (09:40)
[2019-12-07] MEDS: APIXABAN 5 MG TABLET. PO SCH ×2 (09:40→20:29)
[2019-12-07] MEDS: risperiDONE 0.5 MG TABLET. PO SCH ×2 (09:40→17:24)
[2019-12-07] MEDS: MULTIVITAMIN with MINERAL TABLET. PO SCH (09:40)
[2019-12-07] MEDS: POTASSIUM CHLORIDE 20 MEQ TABLET.ER. PO SCH (09:40)
[2019-12-07] MEDS: PANTOPRAZOLE 40 MG TABLET. PO SCH (09:40)
[2019-12-07] MEDS: POLYVINYL ALCOHOL 1.4% OPHTH SOLUTION 15ML BOTTLE. OU SCH ×2 (09:41→20:28)
[2019-12-07] MEDS: NYSTATIN TOPICAL POWDER 15GM BOTTLE. TP SCH ×3 (09:41→20:28)
[2019-12-07 16:22] VITALS: BP 111/68
[2019-12-07] MEDS: CHOLECALCIFEROL (VITAMIN D3) 1,000 UNIT TABLET PO SCH (20:28)
[2019-12-07] MEDS: MIRTAZAPINE 7.5 MG TABLET. PO SCH (20:28)
[2019-12-07] MEDS: METOPROLOL SUCC 24HR ER 50 MG TAB.ER.24H. PO SCH (20:29)
[2019-12-07] MEDS: ATORVASTATIN CALCIUM 10 MG TABLET. PO SCH (20:30)
[2019-12-07] MEDS: traZODone 50 MG TABLET. PO SCH (20:30)
--- NOTE | 2019-12-07 23:15 | PDOC ---
Exam Note: Jamey Note: S/O: This note covers elements not covered in my initial note. The patient was reviewed with nursing staff, reviewed the chart. Discussed with CASEY Jackman. Slept 6 hours. In the morning she was having hallucinations and seeing snakes and fish being in her briefs. She is confused in a wheelchair asking people where she was. ROS: Ambulation impaired in wheelchair. No CV, , Pulmonary, Eye system symptoms on review. MSE: Oriented to herself and situation. Insight and judgment, recent and remote memory, attention and concentration, fund of knowledge is poor consistent with her diagnosis. Labs: Reviewed. Imp: Major neurocognitive disorder Alzheimer vascular with delusion, depression, behavioral disturbance. Anxiety disorder unspecified. Impulse control disorder unspecified. Plan: The patient is currently on Risperdal 0.5 mg twice a day. We will increase 2.5 mg a.m., 0.75 mg at 1700 hours. Rest unchanged for now. Assessment: Vital Signs/I&O: Vital Signs Date Time Temp Pulse Resp B/P (MAP) Pulse Ox O2 Delivery O2 Flow Rate FiO2 12/07/19 20:29 60 111/68 12/07/19 16:22 98.2 18 95 Room Air I & O 12/06/19 12/06/19 12/07/19 15:00 23:00 07:00 Intake Total 480 ml 340 ml Balance 480 ml 340 ml Labs: Laboratory Tests Test 12/07/19 07:48 12/07/19 11:50 12/07/19 16:55 12/07/19 19:06 Glucose (Fingerstick) 133 mg/dL (70-99) H 147 mg/dL (70-99) H 119 mg/dL (70-99) H 155 mg/dL (70-99) H Current Medications: I have reviewed the current psychotropics carefully including drug interactions. Risk benefit ratio favors no change other than as noted in my dictated progress note. 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
[2019-12-08] MEDS: LEVOTHYROXINE 75 MCG TABLET PO SCH (05:12)
[2019-12-08 06:29] VITALS: BP 106/64
[2019-12-08] MEDS: PANTOPRAZOLE 40 MG TABLET. PO SCH (07:30)
[2019-12-08] MEDS: INSULIN LISPRO 300 UNITS/3 ML VIAL. SQ SCH ×3 (08:00→17:00)
[2019-12-08] MEDS: metFORMIN 500 MG TABLET PO SCH ×2 (08:12→16:59)
[2019-12-08] MEDS: DOXYCYCLINE HYCLATE 100 MG TABLET PO SCH ×2 (08:12→21:02)
[2019-12-08] MEDS: LACTOBACILLUS RHAMNOSUS GG 1 CAPSULE. PO SCH (08:12)
[2019-12-08] MEDS: risperiDONE 0.5 MG TABLET. PO SCH ×2 (08:13→16:59)
[2019-12-08] MEDS: FUROSEMIDE 40 MG TABLET PO SCH (08:13)
[2019-12-08] MEDS: busPIRone 5 MG TABLET. PO SCH ×2 (08:14→21:01)
[2019-12-08] MEDS: APIXABAN 5 MG TABLET. PO SCH ×2 (08:14→21:02)
[2019-12-08] MEDS: POLYVINYL ALCOHOL 1.4% OPHTH SOLUTION 15ML BOTTLE. OU SCH ×2 (09:00→21:08)
[2019-12-08] MEDS: POTASSIUM CHLORIDE 20 MEQ TABLET.ER. PO SCH (09:00)
[2019-12-08] MEDS: NYSTATIN TOPICAL POWDER 15GM BOTTLE. TP SCH ×3 (09:00→21:08)
[2019-12-08] MEDS: ASCORBIC ACID 500 MG TABLET PO SCH (09:00)
[2019-12-08] MEDS: CYANOCOBALAMIN (VITAMIN B-12) 1,000 MCG TABLET. PO SCH (09:00)
[2019-12-08] MEDS: LOSARTAN 25 MG TABLET. PO SCH (09:00)
[2019-12-08] MEDS: MULTIVITAMIN with MINERAL TABLET. PO SCH (09:00)
[2019-12-08] MEDS: AMIODARONE HCL 200 MG TABLET PO SCH (09:00)
[2019-12-08 16:25] VITALS: BP 105/62
[2019-12-08] MEDS: METOPROLOL SUCC 24HR ER 50 MG TAB.ER.24H. PO SCH (21:00)
[2019-12-08] MEDS: MIRTAZAPINE 7.5 MG TABLET. PO SCH (21:01)
[2019-12-08] MEDS: traZODone 50 MG TABLET. PO SCH (21:01)
[2019-12-08] MEDS: ATORVASTATIN CALCIUM 10 MG TABLET. PO SCH (21:01)
[2019-12-08] MEDS: CHOLECALCIFEROL (VITAMIN D3) 1,000 UNIT TABLET PO SCH (21:02)
--- NOTE | 2019-12-08 23:52 | PDOC ---
Exam Note: Jamey Note: S/O: This note covers elements not covered in my initial note. Discussed the patient with nursing staff, reviewed the chart. In the morning, the patient had treatment team meeting with the entire team nursing staff, social service staff and myself and TeleHealth Services provided via audio-visual visit in the evening coordinated with Marlon PEÑA. Appetite is 50%. Sleeping average 5-1/2 hours. She has been calm, cooperative, and compliant. She has not been talking about seeing snakes but has had intermittent hallucinations of seeing bugs. As I questioned her on this in the evening, she seemed to mention that she still sees some snakes but did not seem distressed by that. She is on doxycycline for UTI. ROS: Ambulation impaired in wheelchair. No CV, , Pulmonary, Eye system symptoms on review. MSE: Oriented to herself. Insight and judgment, recent and remote memory, attention and concentration, fund of knowledge is poor consistent with her diagnosis. Labs: Reviewed. Imp: Major neurocognitive disorder Alzheimer, vascular with delusion, depression. Psychotic disorder unspecified. UTI. Rest unchanged. Assessment: Vital Signs/I&O: Vital Signs Date Time Temp Pulse Resp B/P (MAP) Pulse Ox O2 Delivery O2 Flow Rate FiO2 12/08/19 21:00 60 105/62 12/08/19 16:25 98.4 17 93 Room Air I & O 12/07/19 12/07/19 12/08/19 15:00 23:00 07:00 Intake Total 840 ml 480 ml Balance 840 ml 480 ml Labs: Laboratory Tests Test 12/08/19 07:45 12/08/19 11:48 12/08/19 17:26 12/08/19 19:31 Glucose (Fingerstick) 113 mg/dL (70-99) H 152 mg/dL (70-99) H 132 mg/dL (70-99) H 160 mg/dL (70-99) H Current Medications: Meds: Current Medications Medications (Trade) Dose Ordered Sig/Dinh Route PRN Reason Start Time Stop Time Status Last Admin Dose Admin Risperidone (RisperDAL) 0.75 mg DAILY@1700 PO 12/08/19 17:00 12/08/19 16:59 I have reviewed the current psychotropics carefully including drug interactions. Risk benefit ratio favors no change other than as noted in my dictated progress note. 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
[2019-12-09 05:49] VITALS: BP 97/61
[2019-12-09] MEDS: LEVOTHYROXINE 75 MCG TABLET PO SCH (06:01)
[2019-12-09] MEDS: PANTOPRAZOLE 40 MG TABLET. PO SCH (07:30)
[2019-12-09] MEDS: LOSARTAN 25 MG TABLET. PO SCH (07:57)
[2019-12-09] MEDS: AMIODARONE HCL 200 MG TABLET PO SCH (07:58)
[2019-12-09] MEDS: INSULIN LISPRO 300 UNITS/3 ML VIAL. SQ SCH ×3 (08:00→16:58)
[2019-12-09] MEDS: MULTIVITAMIN with MINERAL TABLET. PO SCH (09:00)
[2019-12-09] MEDS: CYANOCOBALAMIN (VITAMIN B-12) 1,000 MCG TABLET. PO SCH (09:00)
[2019-12-09] MEDS: ASCORBIC ACID 500 MG TABLET PO SCH (09:00)
[2019-12-09] MEDS: POLYVINYL ALCOHOL 1.4% OPHTH SOLUTION 15ML BOTTLE. OU SCH ×2 (09:00→20:07)
[2019-12-09] MEDS: metFORMIN 500 MG TABLET PO SCH ×2 (09:07→17:04)
[2019-12-09] MEDS: FUROSEMIDE 40 MG TABLET PO SCH (09:07)
[2019-12-09] MEDS: busPIRone 5 MG TABLET. PO SCH ×2 (09:07→19:58)
[2019-12-09] MEDS: APIXABAN 5 MG TABLET. PO SCH ×2 (09:07→19:58)
[2019-12-09] MEDS: DOXYCYCLINE HYCLATE 100 MG TABLET PO SCH ×2 (09:07→19:58)
[2019-12-09] MEDS: risperiDONE 0.5 MG TABLET. PO SCH ×2 (09:07→17:04)
[2019-12-09] MEDS: LACTOBACILLUS RHAMNOSUS GG 1 CAPSULE. PO SCH ×2 (09:08→19:58)
[2019-12-09] MEDS: POTASSIUM CHLORIDE 20 MEQ TABLET.ER. PO SCH (09:08)
[2019-12-09] MEDS: NYSTATIN TOPICAL POWDER 15GM BOTTLE. TP SCH ×3 (09:10→20:07)
--- NOTE | 2019-12-09 10:01 | TX PLAN ---
Interdisciplinary Tx Plan Admission Information Nov 24, 2019 at 21:09 Legal Status (on Admission): Voluntary, DPOA DPOA/Guardian Name: Kaylie Kohler Contact Other Contact Name: Daron Beltran Other Contact Verified Code Status: DNR Allergies: Coded Allergies: CAROLYN Inhibitors (Verified Allergy, Unknown, 11/24/19) Penicillins (Verified Allergy, Unknown, 11/24/19) codeine (Verified Allergy, Unknown, 11/24/19) ibuprofen (Verified Allergy, Unknown, 11/24/19) latex (Verified Allergy, Unknown, 11/24/19) sulfamethoxazole (Verified Allergy, Unknown, 11/24/19) trimethoprim (Verified Allergy, Unknown, 11/24/19) Diagnoses Primary Diagnosis: Major neurocognitive disorder vascular alzheimers with delusions, depression, BD; anxiety disorder unspecified; impulse control disorder Reasons for Admission: Hallucinations, Confusion/Disoriented, Poor impulse control Problem in Patient's Words: Having increased hallucinations and decline in cognition. Additional Admission Comments: According to the intake, pt was having visual hallucinations (snakes and bugs), thinks that they are going into her vagina, fell in her room because she though someone was trying to burn her with a cigar. Problems Active Problems: Hallucinations Confusion, limited safety awareness Currently being treated for UTI Meal intakes 50% Sleep averaging 5.5 hours Hollering out at times Inactive Problems: Kaylie has been medication compliant. Kaylie has been cooperative with nursing assessments. Pt Strengths/Limitations Ability for [place]: Poor Cognitive Functioning/Ability: Fair Communication Skills/Ability: Fair Financial Resources: Fair Insight/Judgement: Fair Intellectual Ability: Fair Physical Health: Fair Social Skills: Fair Stability in Family: Fair Stability in School/Work: Fair Verbal Skills: Fair Discharge Criteria Discharge Criteria: Adequate arrangements @DC, Improved mood/thought Preliminary Discharge Plan Preliminary DC Plan: Current Living Arrange. Special Precautions Fall Risk: High Initial D/C Plan Identified Discharge Needs: Continues psychiatry services. Currently Utilized Resources Currently Utilized Resources/P: 24 hour care/supervision provided by Jose Ellison PCP, Dr. Chery, follows at nursing facility Referrals Community Resources: Out patient psychiatry if available Identified Problems/Hx/Goals Objectives/Short-Term Goals Short Term Goals: Dec. Hallucination/Delus, Dec. Outbursts, Medication Stabilization, Monitor Med Effects, Prevent Deterioration, Promote Coping Skill Short Term Goals in Patient's: Medication and behavioral management Interventions/Frequency Staff Interventions/Frequency&: Nursing to provide routine safety checks, medication administration, and adl assistance. Psychiatry visits 3-5 times weekly. SW vists twice weekly. 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 Social: Enjoys writing letters, reading, games, and puzzles. Education: AA...attended [employer]. Community Follow-up Follow up PCP Out patient psychiatry if available Support from Jose CAGLE Community Provider/Family Inpu: Treatment team meeting held on 12/08/19 with nursing, TSERING, and Dr. Sterling via phone. Elizabeth is averaging 50%of meal intakes and 5.5 hours of sleep at night. She is cooperative with assessments and medication compliant. Elizabeth is hallucinating and sees bugs. She has periods of hollering out repetitively. She is current being treated for a UTI. Treatment Plan Explained Patient/Rock Breaker had this treatment plan explained to him/her as indicated by the signature below and has been given the opportunity to ask questions and make suggestions: Date: Patient/Rock Breaker Signature: SURESH FITZGERALD Dec 09, 2019 10:01
[2019-12-09 15:57] VITALS: BP 94/60
[2019-12-09] MEDS: CHOLECALCIFEROL (VITAMIN D3) 1,000 UNIT TABLET PO SCH (19:57)
[2019-12-09] MEDS: MIRTAZAPINE 7.5 MG TABLET. PO SCH (19:58)
[2019-12-09] MEDS: traZODone 50 MG TABLET. PO SCH (19:58)
[2019-12-09] MEDS: ATORVASTATIN CALCIUM 10 MG TABLET. PO SCH (19:58)
[2019-12-09] MEDS: METOPROLOL SUCC 24HR ER 50 MG TAB.ER.24H. PO SCH (20:07)
[2019-12-10] MEDS: LEVOTHYROXINE 75 MCG TABLET PO SCH (05:27)
[2019-12-10 06:12] VITALS: BP 132/79
[2019-12-10] MEDS: INSULIN LISPRO 300 UNITS/3 ML VIAL. SQ SCH ×3 (07:48→17:00)
[2019-12-10] MEDS: APIXABAN 5 MG TABLET. PO SCH ×2 (08:46→19:44)
[2019-12-10] MEDS: AMIODARONE HCL 200 MG TABLET PO SCH (08:46)
[2019-12-10] MEDS: PANTOPRAZOLE 40 MG TABLET. PO SCH (08:46)
[2019-12-10] MEDS: metFORMIN 500 MG TABLET PO SCH ×2 (08:46→17:32)
[2019-12-10] MEDS: POTASSIUM CHLORIDE 20 MEQ TABLET.ER. PO SCH (08:47)
[2019-12-10] MEDS: ASCORBIC ACID 500 MG TABLET PO SCH (08:47)
[2019-12-10] MEDS: CYANOCOBALAMIN (VITAMIN B-12) 1,000 MCG TABLET. PO SCH (08:47)
[2019-12-10] MEDS: FUROSEMIDE 40 MG TABLET PO SCH (08:47)
[2019-12-10] MEDS: busPIRone 5 MG TABLET. PO SCH ×2 (08:47→19:43)
[2019-12-10] MEDS: DOXYCYCLINE HYCLATE 100 MG TABLET PO SCH ×2 (08:48→19:43)
[2019-12-10] MEDS: LOSARTAN 25 MG TABLET. PO SCH (08:48)
[2019-12-10] MEDS: POLYVINYL ALCOHOL 1.4% OPHTH SOLUTION 15ML BOTTLE. OU SCH ×2 (08:48→19:43)
[2019-12-10] MEDS: MULTIVITAMIN with MINERAL TABLET. PO SCH (08:48)
[2019-12-10] MEDS: risperiDONE 0.5 MG TABLET. PO SCH ×2 (08:48→17:32)
[2019-12-10] MEDS: NYSTATIN TOPICAL POWDER 15GM BOTTLE. TP SCH ×3 (08:49→19:43)
[2019-12-10 16:05] VITALS: BP 96/53
[2019-12-10] MEDS: METOPROLOL SUCC 24HR ER 50 MG TAB.ER.24H. PO SCH (19:27)
[2019-12-10] MEDS: CHOLECALCIFEROL (VITAMIN D3) 1,000 UNIT TABLET PO SCH (19:43)
[2019-12-10] MEDS: MIRTAZAPINE 7.5 MG TABLET. PO SCH (19:44)
[2019-12-10] MEDS: ATORVASTATIN CALCIUM 10 MG TABLET. PO SCH (19:44)
[2019-12-10] MEDS: traZODone 50 MG TABLET. PO SCH (19:44)
[2019-12-10] MEDS: traZODone 50 MG TABLET. PO PRN (23:51)
[2019-12-10] MEDS: traMADol 50 MG TABLET PO PRN (23:51)
[2019-12-11] MEDS: LEVOTHYROXINE 75 MCG TABLET PO SCH (05:50)
[2019-12-11] MEDS: INSULIN LISPRO 300 UNITS/3 ML VIAL. SQ SCH ×3 (08:00→17:00)
--- NOTE | 2019-12-11 08:03 | PDOC ---
Exam Note: Jamey Note: S/O: This note is a late entry for DOS 12/09/2019 covers elements not covered in my initial note. Discussed the patient with nursing staff, reviewed the chart. Discussed with Katlyn PEÑA and the patient has been somewhat confused, delusional, believes there are snakes in her bottom and they have been biting her but redirects. ROS: Ambulation impaired in wheelchair. No CV, , Pulmonary, Eye system symptoms on review. MSE: Oriented to herself. Insight and judgment, recent and remote memory, attention and concentration, fund of knowledge is poor consistent with her diagnosis. Labs: Reviewed. Imp: Major neurocognitive disorder Alzheimer, vascular with delusion, depression. Psychotic disorder unspecified. UTI. Rest unchanged. Plan: No change from initial note. Assessment: Vital Signs/I&O: Vital Signs Date Time Temp Pulse Resp B/P (MAP) Pulse Ox O2 Delivery O2 Flow Rate FiO2 12/11/19 01:03 96 12/10/19 19:27 60 96/53 12/10/19 16:05 97.8 16 Room Air I & O 12/10/19 12/10/19 12/11/19 15:00 23:00 07:00 Intake Total 720 ml 240 ml Balance 720 ml 240 ml Labs: Laboratory Tests Test 12/10/19 12:11 12/10/19 17:25 12/10/19 19:11 12/11/19 07:34 Glucose (Fingerstick) 109 mg/dL (70-99) H 128 mg/dL (70-99) H 144 mg/dL (70-99) H 116 mg/dL (70-99) H Current Medications: I have reviewed the current psychotropics carefully including drug interactions. Risk benefit ratio favors no change other than as noted in my dictated progress note. 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
[2019-12-11] MEDS: busPIRone 5 MG TABLET. PO SCH ×2 (08:06→20:09)
[2019-12-11] MEDS: DOXYCYCLINE HYCLATE 100 MG TABLET PO SCH ×2 (08:06→20:09)
[2019-12-11] MEDS: POTASSIUM CHLORIDE 20 MEQ TABLET.ER. PO SCH (08:06)
[2019-12-11] MEDS: AMIODARONE HCL 200 MG TABLET PO SCH (08:08)
[2019-12-11] MEDS: metFORMIN 500 MG TABLET PO SCH ×2 (08:09→17:36)
[2019-12-11] MEDS: LACTOBACILLUS RHAMNOSUS GG 1 CAPSULE. PO SCH (08:09)
[2019-12-11] MEDS: CYANOCOBALAMIN (VITAMIN B-12) 1,000 MCG TABLET. PO SCH (08:09)
[2019-12-11] MEDS: APIXABAN 5 MG TABLET. PO SCH ×2 (08:09→20:09)
[2019-12-11] MEDS: ASCORBIC ACID 500 MG TABLET PO SCH (08:09)
[2019-12-11] MEDS: MULTIVITAMIN with MINERAL TABLET. PO SCH (08:10)
[2019-12-11] MEDS: FUROSEMIDE 40 MG TABLET PO SCH (08:11)
[2019-12-11] MEDS: POLYVINYL ALCOHOL 1.4% OPHTH SOLUTION 15ML BOTTLE. OU SCH ×2 (08:11→20:11)
[2019-12-11] MEDS: PANTOPRAZOLE 40 MG TABLET. PO SCH (08:11)
[2019-12-11] MEDS: LOSARTAN 25 MG TABLET. PO SCH (08:13)
[2019-12-11] MEDS: risperiDONE 0.5 MG TABLET. PO SCH ×2 (08:14→17:18)
--- NOTE | 2019-12-11 08:28 | PDOC ---
Exam Note: Jamey Note: S/O: This note is a late entry for DOS 12/10/2019 covers elements not covered in my initial note. Discussed the patient with nursing staff, reviewed the chart. Discussed with Teri PEÑA and Teri is the one who went around with the camera for TeleHealth Services with the patient. Patient has had some hypotension and meds were held per Dr. Calivn. She did not indicate to nursing staff that snakes were in her body or around her but when I met with her in the evening during the audio-visual call, she said the snakes were gone but there were alligators biting her. Slept 5 hours previous night ROS: Ambulation impaired in wheelchair. No CV, , Pulmonary, Eye system symptoms on review. MSE: Oriented to herself. Insight and judgment, recent and remote memory, attention and concentration, fund of knowledge is poor consistent with her diagnosis. Labs: Reviewed. Imp: Major neurocognitive disorder Alzheimer, vascular with delusion, depres ward. Psychotic disorder unspecified. UTI. Rest unchanged. Plan: No change from initial note. We have increased the Risperdal over the last couple of days. I will wait for another day or two and then decide whether we need to increase it further. Assessment: Vital Signs/I&O: Vital Signs Date Time Temp Pulse Resp B/P (MAP) Pulse Ox O2 Delivery O2 Flow Rate FiO2 12/11/19 08:13 87 131/67 12/11/19 01:03 96 12/10/19 16:05 97.8 16 Room Air I & O 12/10/19 12/10/19 12/11/19 15:00 23:00 07:00 Intake Total 720 ml 240 ml Balance 720 ml 240 ml Labs: Laboratory Tests Test 12/10/19 12:11 12/10/19 17:25 12/10/19 19:11 12/11/19 07:34 Glucose (Fingerstick) 109 mg/dL (70-99) H 128 mg/dL (70-99) H 144 mg/dL (70-99) H 116 mg/dL (70-99) H Current Medications: I have reviewed the current psychotropics carefully including drug interactions. Risk benefit ratio favors no change other than as noted in my dictated progress note. 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
[2019-12-11 09:12] LABS: BASO % 0 % (0-3); EOS # 0.1 x10^3/uL (0.0-0.7); EOS % 1 % (0-3); HEMATOCRIT 36.8 % (36.0-47.0); HEMOGLOBIN 12.1 g/dL (12.0-15.5); LYMPH # 0.5 x10^3/uL (1.0-4.8); LYMPH % 6 % (24-48); MEAN CORPUSCULAR HEMOGLOBIN 30 pg (25-35); MEAN CORPUSCULAR HGB CONC 33 g/dL (31-37); MEAN CORPUSCULAR VOLUME 90 fL (79-100); MONO # 0.7 x10^3/uL (0.0-1.1); MONO % 9 % (0-9); NEUT # 6.8 x10^3uL (1.8-7.7); NEUT % 84 % (31-73); PLATELET COUNT 186 x10^3/uL (140-400); RED BLOOD COUNT 4.07 x10^6/uL (3.50-5.40); RED CELL DISTRIBUTION WIDTH 16.1 % (11.5-14.5); WHITE BLOOD COUNT 8.1 x10^3/uL (4.0-11.0)
[2019-12-11 09:28] LABS: ALBUMIN 2.6 g/dL (3.4-5.0); ALBUMIN/GLOBULIN RATIO 0.6 (1.0-1.7); CALCIUM 8.3 mg/dL (8.5-10.1); GFR 52.3; POTASSIUM 3.6 mmol/L (3.5-5.1); TOTAL BILIRUBIN 0.5 mg/dL (0.2-1.0); TOTAL PROTEIN 6.7 g/dL (6.4-8.2)
[2019-12-11] MEDS: NYSTATIN TOPICAL POWDER 15GM BOTTLE. TP SCH ×3 (09:52→20:11)
[2019-12-11 13:14] LABS: % BANDS 8 % (0-9); % EOS 1 % (0-5); % LYMPHS 6 % (24-48); % MONOS 4 % (0-10); % MYELOS 1 % (0-0); % SEGS 80 % (35-66)
[2019-12-11 13:18] LABS: PLT ESTIMATE ADEQUATE (ADEQUATE)
[2019-12-11 13:19] LABS: BURR CELLS FEW; OVALOCYTES OCC
[2019-12-11 16:07] VITALS: BP 117/67
[2019-12-11] MEDS: CHOLECALCIFEROL (VITAMIN D3) 1,000 UNIT TABLET PO SCH (20:09)
[2019-12-11] MEDS: MIRTAZAPINE 7.5 MG TABLET. PO SCH (20:09)
[2019-12-11] MEDS: traZODone 50 MG TABLET. PO SCH (20:09)
[2019-12-11] MEDS: METOPROLOL SUCC 24HR ER 50 MG TAB.ER.24H. PO SCH (20:10)
[2019-12-11 20:11] VITALS: BP 124/72
--- NOTE | 2019-12-11 22:46 | PDOC ---
Exam Note: Jamey Note: S/O: This note covers elements not covered in my initial note. The patient was seen on TeleHealth rounds evening of 12/11/2019 by Alexandra PEÑA. Discussed the patient with nursing staff, reviewed the chart. Nursing report was with Elsa PEÑA. Patients AST and ALT have been elevated. Dr. Calvin has stopped the Lipitor and I will defer this to Dr. Calvin. Patient reportedly has not voiced any hallucinations but as I met with her asked her about the crocodile biting her, she was laughing and not very forthcoming about this. ROS: Ambulation impaired in wheelchair. No CV, , Pulmonary, Eye system symptoms on review. MSE: Oriented to herself and situation. Speech has some latency, coherent. Abstraction is fair. Computation impaired. Language function intact. Attention span short. Mood and affect somewhat labile. Labs: Reviewed. Imp: Major neurocognitive disorder Alzheimer, vascular with delusion, depression. Psychotic disorder unspecified. UTI. Rest unchanged. Plan: No change from her current psychotropics and we may need to increase Risperdal further depending on whether the psychotic symptoms resurface. Assessment: Vital Signs/I&O: Vital Signs Date Time Temp Pulse Resp B/P (MAP) Pulse Ox O2 Delivery O2 Flow Rate FiO2 12/11/19 20:11 73 124/72 (89) 93 12/11/19 16:07 97.4 20 Room Air I & O 12/10/19 12/10/19 12/11/19 15:00 23:00 07:00 Intake Total 720 ml 240 ml Balance 720 ml 240 ml Labs: Laboratory Tests Test 12/11/19 07:34 12/11/19 08:15 12/11/19 12:11 12/11/19 16:25 Glucose (Fingerstick) 116 mg/dL (70-99) H 95 mg/dL (70-99) 134 mg/dL (70-99) H White Blood Count 8.1 x10^3/uL (4.0-11.0) Red Blood Count 4.07 x10^6/uL (3.50-5.40) Hemoglobin 12.1 g/dL (12.0-15.5) Hematocrit 36.8 % (36.0-47.0) Mean Corpuscular Volume 90 fL (79-100) Mean Corpuscular Hemoglobin 30 pg (25-35) Mean Corpuscular Hemoglobin Concent 33 g/dL (31-37) Red Cell Distribution Width 16.1 % (11.5-14.5) H Platelet Count 186 x10^3/uL (140-400) Neutrophils (%) (Auto) 84 % (31-73) H Lymphocytes (%) (Auto) 6 % (24-48) L Monocytes (%) (Auto) 9 % (0-9) Eosinophils (%) (Auto) 1 % (0-3) Basophils (%) (Auto) 0 % (0-3) Neutrophils # (Auto) 6.8 x10^3uL (1.8-7.7) Lymphocytes # (Auto) 0.5 x10^3/uL (1.0-4.8) L Monocytes # (Auto) 0.7 x10^3/uL (0.0-1.1) Eosinophils # (Auto) 0.1 x10^3/uL (0.0-0.7) Basophils # (Auto) 0.0 x10^3/uL (0.0-0.2) Segmented Neutrophils % 80 % (35-66) H Band Neutrophils % 8 % (0-9) Lymphocytes % 6 % (24-48) L Monocytes % 4 % (0-10) Eosinophils % 1 % (0-5) Myelocytes % 1 % (0-0) H Platelet Estimate Adequate (ADEQUATE) Ovalocytes Occ Nixon Cells Few Sodium Level 139 mmol/L (136-145) Potassium Level 3.6 mmol/L (3.5-5.1) Chloride Level 103 mmol/L (98-107) Carbon Dioxide Level 26 mmol/L (21-32) Anion Gap 10 (6-14) Blood Urea Nitrogen 23 mg/dL (7-20) H Creatinine 1.0 mg/dL (0.6-1.0) Estimated GFR (Cockcroft-Gault) 52.3 BUN/Creatinine Ratio 23 (6-20) H Glucose Level 117 mg/dL (70-99) H Calcium Level 8.3 mg/dL (8.5-10.1) L Total Bilirubin 0.5 mg/dL (0.2-1.0) Aspartate Amino Transferase (AST) 233 U/L (15-37) H Alanine Aminotransferase (ALT) 273 U/L (14-59) H Alkaline Phosphatase 86 U/L (46-116) Total Protein 6.7 g/dL (6.4-8.2) Albumin 2.6 g/dL (3.4-5.0) L Albumin/Globulin Ratio 0.6 (1.0-1.7) L Test 12/11/19 19:29 Glucose (Fingerstick) 228 mg/dL (70-99) H Current Medications: I have reviewed the current psychotropics carefully including drug interactions. Risk benefit ratio favors no change other than as noted in my dictated progress note. Diagnosis: Problems: (1) Impulse control disorder (2) Visual hallucinations (3) Anxiety disorder (4) Psychotic disorder (5) Dementia, vascular, with depression (6) Dementia, vascular, with delusions (7) Dementia in Alzheimer's disease with depression (8) Dementia in Alzheimer's disease with delusions (9) Major neurocognitive disorder VINITA PONCE MD Dec 11, 2019 22:46
[2019-12-11] MEDS: traZODone 50 MG TABLET. PO PRN (23:38)
[2019-12-12] MEDS: LEVOTHYROXINE 75 MCG TABLET PO SCH (05:29)
[2019-12-12 05:57] VITALS: BP 125/70
[2019-12-12 06:59] LABS: ALBUMIN 2.2 g/dL (3.4-5.0); DIRECT BILIRUBIN 0.2 mg/dL (0.0-0.2); TOTAL BILIRUBIN 0.4 mg/dL (0.2-1.0); TOTAL PROTEIN 6.1 g/dL (6.4-8.2)
[2019-12-12] MEDS: INSULIN LISPRO 300 UNITS/3 ML VIAL. SQ SCH ×3 (08:00→17:00)
[2019-12-12] MEDS: LACTOBACILLUS RHAMNOSUS GG 1 CAPSULE. PO SCH (09:30)
[2019-12-12] MEDS: DOXYCYCLINE HYCLATE 100 MG TABLET PO SCH ×2 (09:30→19:59)
[2019-12-12] MEDS: risperiDONE 0.5 MG TABLET. PO SCH ×2 (09:31→17:20)
[2019-12-12] MEDS: AMIODARONE HCL 200 MG TABLET PO SCH (09:31)
[2019-12-12] MEDS: metFORMIN 500 MG TABLET PO SCH ×2 (09:32→17:21)
[2019-12-12] MEDS: busPIRone 5 MG TABLET. PO SCH ×2 (09:32→19:59)
[2019-12-12] MEDS: APIXABAN 5 MG TABLET. PO SCH ×2 (09:32→19:59)
[2019-12-12] MEDS: CYANOCOBALAMIN (VITAMIN B-12) 1,000 MCG TABLET. PO SCH (09:32)
[2019-12-12] MEDS: LOSARTAN 25 MG TABLET. PO SCH (09:32)
[2019-12-12] MEDS: MULTIVITAMIN with MINERAL TABLET. PO SCH (09:33)
[2019-12-12] MEDS: ASCORBIC ACID 500 MG TABLET PO SCH (09:33)
[2019-12-12] MEDS: FUROSEMIDE 40 MG TABLET PO SCH (09:33)
[2019-12-12] MEDS: POTASSIUM CHLORIDE 20 MEQ TABLET.ER. PO SCH (09:33)
[2019-12-12] MEDS: PANTOPRAZOLE 40 MG TABLET. PO SCH (09:33)
[2019-12-12] MEDS: POLYVINYL ALCOHOL 1.4% OPHTH SOLUTION 15ML BOTTLE. OU SCH ×2 (09:34→20:00)
[2019-12-12] MEDS: NYSTATIN TOPICAL POWDER 15GM BOTTLE. TP SCH ×3 (09:34→20:00)
[2019-12-12 16:02] VITALS: BP 115/66
[2019-12-12] MEDS: CHOLECALCIFEROL (VITAMIN D3) 1,000 UNIT TABLET PO SCH (19:59)
[2019-12-12] MEDS: MIRTAZAPINE 7.5 MG TABLET. PO SCH (19:59)
[2019-12-12] MEDS: traZODone 50 MG TABLET. PO SCH (19:59)
[2019-12-12] MEDS: METOPROLOL SUCC 24HR ER 50 MG TAB.ER.24H. PO SCH (20:00)
[2019-12-12] MEDS: traMADol 50 MG TABLET PO PRN (20:04)
--- NOTE | 2019-12-12 22:52 | PDOC ---
Exam Note: Jamey Note: S/O: This note covers elements not covered in my initial note. The patient was seen on TeleHealth rounds in the evening by Alexandra PEÑA. Discussed the patient with nursing staff, reviewed the chart. Nursing report was with Augustina PEÑA. Patient slept 2-1/2 hours previous night despite repeat trazodone and Zyprexa Zydis. She was a little resistive with medications with intermittent hallucinations but not as fixated on the hallucinations today. As I questioned her she denied seeing any snakes or being bitten by alligators, etc., like she did the day before. She resents taking so many vitamin supplements. Nursing staff will check with Dr. Calvin on this and if none of them can be eliminated we may stop the BuSpar 5 mg b.i.d. since this may have a lower benefit as compared to the other psychotropics she is taking including Risperdal, trazodone and Remeron. ROS: Ambulation impaired in wheelchair. No CV, , Pulmonary, Eye system symptoms on review. MSE: Oriented to herself and situation. Speech coherent, rapid at times. Abstraction is fair. Computation impaired. Language function intact. Attention span short. Mood and affect somewhat withdrawn. She is seated in a wheelchair, head bent forward but verbal responses are quite appropriate to questioned asked. Labs: Reviewed. Imp: Major neurocognitive disorder Alzheimer, vascular with delusion, depression. Psychotic disorder unspecified. UTI. Rest unchanged. Plan: As noted above. Assessment: Vital Signs/I&O: Vital Signs Date Time Temp Pulse Resp B/P (MAP) Pulse Ox O2 Delivery O2 Flow Rate FiO2 12/12/19 21:15 90 12/12/19 20:00 60 115/66 12/12/19 16:02 98.1 18 Room Air I & O 12/11/19 12/11/19 12/12/19 14:59 22:59 06:59 Intake Total 480 ml 360 ml Balance 480 ml 360 ml Labs: Laboratory Tests Test 12/12/19 06:32 12/12/19 07:45 12/12/19 11:56 12/12/19 17:03 Total Bilirubin 0.4 mg/dL (0.2-1.0) Direct Bilirubin 0.2 mg/dL (0.0-0.2) Aspartate Amino Transferase (AST) 173 U/L (15-37) H Alanine Aminotransferase (ALT) 221 U/L (14-59) H Alkaline Phosphatase 93 U/L (46-116) Total Protein 6.1 g/dL (6.4-8.2) L Albumin 2.2 g/dL (3.4-5.0) L Glucose (Fingerstick) 109 mg/dL (70-99) H 111 mg/dL (70-99) H 125 mg/dL (70-99) H Test 12/12/19 19:14 Glucose (Fingerstick) 160 mg/dL (70-99) H Current Medications: I have reviewed the current psychotropics carefully including drug interactions. Risk benefit ratio favors no change other than as noted in my dictated progress note. Diagnosis: Problems: (1) Impulse control disorder (2) Visual hallucinations (3) Anxiety disorder (4) Psychotic disorder (5) Dementia, vascular, with depression (6) Dementia, vascular, with delusions (7) Dementia in Alzheimer's disease with depression (8) Dementia in Alzheimer's disease with delusions (9) Major neurocognitive disorder VINITA PONCE MD Dec 12, 2019 22:52
[2019-12-13 05:12] VITALS: BP 121/52
[2019-12-13] MEDS: LEVOTHYROXINE 75 MCG TABLET PO SCH (05:41)
[2019-12-13] MEDS: busPIRone 5 MG TABLET. PO SCH ×2 (07:43→19:57)
[2019-12-13] MEDS: AMIODARONE HCL 200 MG TABLET PO SCH (07:43)
[2019-12-13] MEDS: DOXYCYCLINE HYCLATE 100 MG TABLET PO SCH (07:44)
[2019-12-13] MEDS: POTASSIUM CHLORIDE 20 MEQ TABLET.ER. PO SCH (07:44)
[2019-12-13] MEDS: FUROSEMIDE 40 MG TABLET PO SCH (07:44)
[2019-12-13] MEDS: ASCORBIC ACID 500 MG TABLET PO SCH (07:44)
[2019-12-13] MEDS: LACTOBACILLUS RHAMNOSUS GG 1 CAPSULE. PO SCH (07:44)
[2019-12-13] MEDS: MULTIVITAMIN with MINERAL TABLET. PO SCH (07:44)
[2019-12-13] MEDS: risperiDONE 0.5 MG TABLET. PO SCH ×2 (07:45→17:29)
[2019-12-13] MEDS: metFORMIN 500 MG TABLET PO SCH ×2 (07:45→17:29)
[2019-12-13] MEDS: CYANOCOBALAMIN (VITAMIN B-12) 1,000 MCG TABLET. PO SCH (07:45)
[2019-12-13] MEDS: POLYVINYL ALCOHOL 1.4% OPHTH SOLUTION 15ML BOTTLE. OU SCH ×2 (07:46→19:57)
[2019-12-13] MEDS: APIXABAN 5 MG TABLET. PO SCH ×2 (07:46→19:58)
[2019-12-13] MEDS: NYSTATIN TOPICAL POWDER 15GM BOTTLE. TP SCH ×3 (07:46→19:57)
[2019-12-13] MEDS: LOSARTAN 25 MG TABLET. PO SCH (07:46)
[2019-12-13] MEDS: PANTOPRAZOLE 40 MG TABLET. PO SCH (07:46)
[2019-12-13] MEDS: INSULIN LISPRO 300 UNITS/3 ML VIAL. SQ SCH ×3 (08:00→17:00)
[2019-12-13 15:31] VITALS: BP 98/59
[2019-12-13] MEDS: CHOLECALCIFEROL (VITAMIN D3) 1,000 UNIT TABLET PO SCH (19:57)
[2019-12-13] MEDS: traZODone 50 MG TABLET. PO SCH (19:57)
[2019-12-13] MEDS: MIRTAZAPINE 7.5 MG TABLET. PO SCH (19:57)
[2019-12-13] MEDS: METOPROLOL SUCC 24HR ER 50 MG TAB.ER.24H. PO SCH (19:58)
--- NOTE | 2019-12-13 21:56 | PDOC ---
Exam Note: Jamey Note: Please also refer to the separate dictated note~for this date of service dictated separately. Discussed the patient with Nursing staff reviewed the chart.~Reviewed interim history and current functioning. Reviewed vital signs,~Labs/ Radiology~and current medications noted below. Continue current treatment with the changes noted in the dictated addendum note Assessment: Vital Signs/I&O: Vital Signs Date Time Temp Pulse Resp B/P (MAP) Pulse Ox O2 Delivery O2 Flow Rate FiO2 12/13/19 19:58 60 98/59 12/13/19 15:31 97.7 16 90 12/12/19 16:02 Room Air I & O 12/12/19 12/12/19 12/13/19 15:00 23:00 07:00 Intake Total 600 ml 240 ml Balance 600 ml 240 ml Labs: Laboratory Tests Test 12/13/19 07:51 12/13/19 11:41 12/13/19 17:03 12/13/19 19:08 Glucose (Fingerstick) 136 mg/dL (70-99) H 129 mg/dL (70-99) H 95 mg/dL (70-99) 146 mg/dL (70-99) H Current Medications: I have reviewed the current psychotropics carefully including drug interactions. Risk benefit ratio favors no change other than as noted in my dictated progress note. Diagnosis: Problems: (1) Visual hallucinations (2) Anxiety disorder (3) Psychotic disorder (4) Dementia, vascular, with depression (5) Dementia, vascular, with delusions (6) Dementia in Alzheimer's disease with depression (7) Dementia in Alzheimer's disease with delusions (8) Major neurocognitive disorder (9) Impulse control disorder VINITA PONCE MD Dec 13, 2019 21:56
[2019-12-13] MEDS: traZODone 50 MG TABLET. PO PRN (22:28)
[2019-12-14 06:06] LABS: ALBUMIN 2.2 g/dL (3.4-5.0); ALBUMIN/GLOBULIN RATIO 0.6 (1.0-1.7); CALCIUM 7.9 mg/dL (8.5-10.1); GFR 52.3; POTASSIUM 3.9 mmol/L (3.5-5.1); TOTAL BILIRUBIN 0.4 mg/dL (0.2-1.0); TOTAL PROTEIN 6.1 g/dL (6.4-8.2)
[2019-12-14] MEDS: LEVOTHYROXINE 75 MCG TABLET PO SCH (06:12)
[2019-12-14 06:20] VITALS: BP 121/61
[2019-12-14] MEDS: INSULIN LISPRO 300 UNITS/3 ML VIAL. SQ SCH ×3 (08:00→17:00)
[2019-12-14] MEDS: risperiDONE 0.5 MG TABLET. PO SCH ×2 (08:06→17:00)
[2019-12-14] MEDS: LACTOBACILLUS RHAMNOSUS GG 1 CAPSULE. PO SCH (08:06)
[2019-12-14] MEDS: FUROSEMIDE 40 MG TABLET PO SCH (08:06)
[2019-12-14] MEDS: AMIODARONE HCL 200 MG TABLET PO SCH (08:07)
[2019-12-14] MEDS: PANTOPRAZOLE 40 MG TABLET. PO SCH (08:07)
[2019-12-14] MEDS: busPIRone 5 MG TABLET. PO SCH ×2 (08:07→19:46)
[2019-12-14] MEDS: metFORMIN 500 MG TABLET PO SCH ×2 (08:07→17:00)
[2019-12-14] MEDS: LOSARTAN 25 MG TABLET. PO SCH (08:07)
[2019-12-14] MEDS: APIXABAN 5 MG TABLET. PO SCH ×2 (08:08→19:48)
[2019-12-14] MEDS: POTASSIUM CHLORIDE 20 MEQ TABLET.ER. PO SCH (08:08)
[2019-12-14] MEDS: POLYVINYL ALCOHOL 1.4% OPHTH SOLUTION 15ML BOTTLE. OU SCH ×2 (08:08→19:49)
[2019-12-14] MEDS: NYSTATIN TOPICAL POWDER 15GM BOTTLE. TP SCH ×3 (08:09→19:49)
--- NOTE | 2019-12-14 10:36 | PDOC ---
Exam Note: Jamey Note: S/O: This note is a late entry for DOS 12/13/2019 covers elements not covered in my initial note. The patient was seen on TeleHealth rounds coordinated by Augustina PEÑA in the evening. Discussed the patient with nursing staff, reviewed the chart. Nursing report was with Augustina PEÑA. Patient slept 7-3/4 hours p revious night. Per nursing report previous night, the patient was delusional, talking about alligators biting her but none of that evident on 12/13/2019. She has been somewhat drowsy. ROS: Ambulation impaired in wheelchair. No CV, , Pulmonary, Eye system symptoms on review. Reliability poor. MSE: Patient was in her wheelchair, head bent forward. Nursing staff had to raise her head to communicate with me through audio-visual aid. She takes her medications crushed. When I specifically questioned her on alligators biting her, she denied it. Speech has some latency, coherent. Abstraction is fair. Computation impaired. Mood and affect somewhat withdrawn. No suicidal or homicidal ideation. Labs: Reviewed. Imp: Major neurocognitive disorder Alzheimer, vascular with delusion, depression. Psychotic disorder unspecified. UTI. Rest unchanged. Plan: Continue rest psychotropics mentioned in the current list. Assessment: Vital Signs/I&O: Vital Signs Date Time Temp Pulse Resp B/P (MAP) Pulse Ox O2 Delivery O2 Flow Rate FiO2 12/14/19 08:07 60 121/61 12/14/19 06:20 98.3 18 91 12/12/19 16:02 Room Air I & O 12/13/19 12/13/19 12/14/19 15:00 23:00 07:00 Intake Total 720 ml 580 ml Balance 720 ml 580 ml Labs: Laboratory Tests Test 12/13/19 11:41 12/13/19 17:03 12/13/19 19:08 12/14/19 05:44 Glucose (Fingerstick) 129 mg/dL (70-99) H 95 mg/dL (70-99) 146 mg/dL (70-99) H Sodium Level 141 mmol/L (136-145) Potassium Level 3.9 mmol/L (3.5-5.1) Chloride Level 105 mmol/L (98-107) Carbon Dioxide Level 26 mmol/L (21-32) Anion Gap 10 (6-14) Blood Urea Nitrogen 23 mg/dL (7-20) H Creatinine 1.0 mg/dL (0.6-1.0) Estimated GFR (Cockcroft-Gault) 52.3 BUN/Creatinine Ratio 23 (6-20) H Glucose Level 109 mg/dL (70-99) H Calcium Level 7.9 mg/dL (8.5-10.1) L Total Bilirubin 0.4 mg/dL (0.2-1.0) Aspartate Amino Transferase (AST) 156 U/L (15-37) H Alanine Aminotransferase (ALT) 187 U/L (14-59) H Alkaline Phosphatase 89 U/L (46-116) Total Protein 6.1 g/dL (6.4-8.2) L Albumin 2.2 g/dL (3.4-5.0) L Albumin/Globulin Ratio 0.6 (1.0-1.7) L Test 12/14/19 07:09 Glucose (Fingerstick) 150 mg/dL (70-99) H Current Medications: I have reviewed the current psychotropics carefully including drug interactions. Risk benefit ratio favors no change other than as noted in my dictated progress note. Diagnosis: Problems: (1) Impulse control disorder (2) Visual hallucinations (3) Anxiety disorder (4) Psychotic disorder (5) Dementia, vascular, with depression (6) Dementia, vascular, with delusions (7) Dementia in Alzheimer's disease with depression (8) Dementia in Alzheimer's disease with delusions (9) Major neurocognitive disorder VINITA PONCE MD Dec 14, 2019 10:36
--- NOTE | 2019-12-14 11:25 | TX PLAN ---
Interdisciplinary Tx Plan Admission Information Nov 24, 2019 at 21:09 Legal Status (on Admission): Voluntary, DPOA DPOA/Guardian Name: Kaylie Kohler Contact Other Contact Name: [facility] Zachary Other Contact Verified Code Status: DNR Allergies: Coded Allergies: CAROLYN Inhibitors (Verified Allergy, Unknown, 11/24/19) Penicillins (Verified Allergy, Unknown, 11/24/19) codeine (Verified Allergy, Unknown, 11/24/19) ibuprofen (Verified Allergy, Unknown, 11/24/19) latex (Verified Allergy, Unknown, 11/24/19) sulfamethoxazole (Verified Allergy, Unknown, 11/24/19) trimethoprim (Verified Allergy, Unknown, 11/24/19) Diagnoses Primary Diagnosis: Major neurocognitive disorder vascular alzheimers with delusions, depression, BD; anxiety disorder unspecified; impulse control disorder Reasons for Admission: Hallucinations, Confusion/Disoriented, Poor impulse control Problem in Patient's Words: Having increased hallucinations and decline in cognition. Additional Admission Comments: According to the intake, pt was having visual hallucinations (snakes and bugs), thinks that they are going into her vagina, fell in her room because she though someone was trying to burn her with a cigar. Problems Active Problems: Hallucinations Confusion, limited safety awareness Currently being treated for UTI Meal intakes 50% Sleep averaging 5.5 hours Hollering out at times Inactive Problems: Kaylie has been medication compliant. Kaylie has been cooperative with nursing assessments. Pt Strengths/Limitations Ability for Amelia: Poor Cognitive Functioning/Ability: Fair Communication Skills/Ability: Fair Financial Resources: Fair Insight/Judgement: Fair Intellectual Ability: Fair Physical Health: Fair Social Skills: Fair Stability in Family: Fair Stability in School/Work: Fair Verbal Skills: Fair Discharge Criteria Discharge Criteria: Adequate arrangements @DC, Improved mood/thought Preliminary Discharge Plan Preliminary DC Plan: Current Living Arrange. Special Precautions Fall Risk: High Initial D/C Plan Pt to return to [facility] once stable Identified Discharge Needs: Continues psychiatry services. Currently Utilized Resources Currently Utilized Resources/P: 24 hour care/supervision provided by [facility] PCP, Dr. Chery, follows at nursing facility Referrals Community Resources: Out patient psychiatry if available Identified Problems/Hx/Goals Objectives/Short-Term Goals Short Term Goals: Dec. Hallucination/Delus, Dec. Outbursts, Medication Stabilization, Monitor Med Effects, Prevent Deterioration, Promote Coping Skill Short Term Goals in Patient's: Medication and behavioral management Interventions/Frequency Staff Interventions/Frequency&: Nursing to provide routine safety checks, medication administration, and adl assistance. Psychiatry visits 3-5 times weekly. SW vists twice weekly. 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 Social: Enjoys writing letters, reading, games, and puzzles. Education: AA...attended [employer]. Community Follow-up Follow up PCP Out patient psychiatry if available Support from [facility] Community Provider/Family Inpu: Treatment team meeting held on 12/08/19 with nursing, TSERING, and Dr. Sterling via phone. Elizabeth is averaging 50%of meal intakes and 5.5 hours of sleep at night. She is cooperative with assessments and medication compliant. Elizabeth is hallucinating and sees bugs. She has periods of hollering out repetitively. She is current being treated for a UTI. 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 Pt continues to be delusional stating that there are alligators in her room and that her car is broken and needs to be put in the shop. Pt is extremely medication resistant and needs them crushed and hidden. Pt needs wound care for her heels and nursing to continue to monitor. Pt is [employer] and benefits using a pocket talker. Pt will plan to return to [facility] once she is able to stabilize. KIRILL FERNANDES Dec 14, 2019 11:25
[2019-12-14 15:36] VITALS: BP 121/61
[2019-12-14] MEDS: CHOLECALCIFEROL (VITAMIN D3) 1,000 UNIT TABLET PO SCH (19:47)
[2019-12-14] MEDS: METOPROLOL SUCC 24HR ER 50 MG TAB.ER.24H. PO SCH (19:47)
[2019-12-14] MEDS: MIRTAZAPINE 7.5 MG TABLET. PO SCH (19:47)
[2019-12-14] MEDS: traZODone 50 MG TABLET. PO SCH (19:47)
--- NOTE | 2019-12-14 21:55 | PDOC ---
Exam Note: Jamey Note: Please also refer to the separate dictated note~for this date of service dictated separately.~Patient seen individually. Discussed the patient with Nursing staff reviewed the chart.~Reviewed interim history and current functioning. Reviewed vital signs,~Labs/ Radiology~and current medications noted below. Continue current treatment with the changes noted in the dictated addendum note Assessment: Vital Signs/I&O: Vital Signs Date Time Temp Pulse Resp B/P (MAP) Pulse Ox O2 Delivery O2 Flow Rate FiO2 12/14/19 19:47 76 121/61 12/14/19 15:36 99.2 18 93 12/12/19 16:02 Room Air I & O 12/13/19 12/13/19 12/14/19 15:00 23:00 07:00 Intake Total 720 ml 580 ml Balance 720 ml 580 ml Labs: Laboratory Tests Test 12/14/19 05:44 12/14/19 07:09 12/14/19 11:32 12/14/19 16:51 Sodium Level 141 mmol/L (136-145) Potassium Level 3.9 mmol/L (3.5-5.1) Chloride Level 105 mmol/L (98-107) Carbon Dioxide Level 26 mmol/L (21-32) Anion Gap 10 (6-14) Blood Urea Nitrogen 23 mg/dL (7-20) H Creatinine 1.0 mg/dL (0.6-1.0) Estimated GFR (Cockcroft-Gault) 52.3 BUN/Creatinine Ratio 23 (6-20) H Glucose Level 109 mg/dL (70-99) H Calcium Level 7.9 mg/dL (8.5-10.1) L Total Bilirubin 0.4 mg/dL (0.2-1.0) Aspartate Amino Transferase (AST) 156 U/L (15-37) H Alanine Aminotransferase (ALT) 187 U/L (14-59) H Alkaline Phosphatase 89 U/L (46-116) Total Protein 6.1 g/dL (6.4-8.2) L Albumin 2.2 g/dL (3.4-5.0) L Albumin/Globulin Ratio 0.6 (1.0-1.7) L Glucose (Fingerstick) 150 mg/dL (70-99) H 237 mg/dL (70-99) H 104 mg/dL (70-99) H Test 12/14/19 19:03 Glucose (Fingerstick) 117 mg/dL (70-99) H Current Medications: I have reviewed the current psychotropics carefully including drug interactions. Risk benefit ratio favors no change other than as noted in my dictated progress note. Diagnosis: Problems: (1) Impulse control disorder (2) Visual hallucinations (3) Anxiety disorder (4) Psychotic disorder (5) Dementia, vascular, with depression (6) Dementia, vascular, with delusions (7) Dementia in Alzheimer's disease with depression (8) Dementia in Alzheimer's disease with delusions (9) Major neurocognitive disorder VINITA PONCE MD Dec 14, 2019 21:55
[2019-12-15] MEDS: LEVOTHYROXINE 75 MCG TABLET PO SCH (05:39)
[2019-12-15 05:47] VITALS: BP 126/68
[2019-12-15] MEDS: APIXABAN 5 MG TABLET. PO SCH ×2 (07:58→19:46)
[2019-12-15] MEDS: risperiDONE 0.5 MG TABLET. PO SCH ×2 (07:59→17:17)
[2019-12-15] MEDS: LOSARTAN 25 MG TABLET. PO SCH (07:59)
[2019-12-15] MEDS: AMIODARONE HCL 200 MG TABLET PO SCH (07:59)
[2019-12-15] MEDS: LACTOBACILLUS RHAMNOSUS GG 1 CAPSULE. PO SCH (07:59)
[2019-12-15] MEDS: FUROSEMIDE 40 MG TABLET PO SCH (08:00)
[2019-12-15] MEDS: busPIRone 5 MG TABLET. PO SCH ×2 (08:00→19:46)
[2019-12-15] MEDS: PANTOPRAZOLE 40 MG TABLET. PO SCH (08:00)
[2019-12-15] MEDS: POTASSIUM CHLORIDE 20 MEQ TABLET.ER. PO SCH (08:00)
[2019-12-15] MEDS: INSULIN LISPRO 300 UNITS/3 ML VIAL. SQ SCH ×3 (08:00→17:00)
[2019-12-15] MEDS: metFORMIN 500 MG TABLET PO SCH ×2 (08:00→17:17)
[2019-12-15] MEDS: NYSTATIN TOPICAL POWDER 15GM BOTTLE. TP SCH ×3 (08:38→19:43)
[2019-12-15] MEDS: POLYVINYL ALCOHOL 1.4% OPHTH SOLUTION 15ML BOTTLE. OU SCH ×2 (08:39→19:43)
--- NOTE | 2019-12-15 10:33 | PDOC ---
Exam Note: Jamey Note: S/O: This note is a late entry for DOS 12/14/2019 covers elements not covered in my initial note. We have had exposure of COVID-19 on the unit consequent to a staff member. The unit was on lockdown per [facility] ([facility])/Centers for Disease Control (CDC). Three patients had dev eloped fever and other symptoms for which they were screened for the COVID-19, two of which have come back negative, result for one is awaited and one other patient today is running a fever and we are doing a COVID-19 screen for this patient. Per regulations from the [facility], we are unable to admit or discharge any patients, still all of this is negative and the length of stay has affected not entirely by the clinical situation but by this directive additionally from the [facility]/CDC. The patient was seen on TeleHealth rounds coordinated by Katie PEÑA in the evening. Discussed the patient with nursing staff, reviewed the chart. Nursing report was with Tabitha PEÑA. Patient slept 7-1/2 hours previous night. Patient remains somewhat cranky per nursing report. She has not been talking about being bitten by alligators today though she did that the previous day. ROS: Ambulation impaired in wheelchair. No CV, , Pulmonary, Eye system symptoms on review. MSE: Oriented to herself and situation at times. Speech has some latency. Abstraction is fair. Computation impaired. Language function is intact. Mood and affect somewhat withdrawn. Eye contact is poor as she sits in the wheelchair head bent forward and the camera had to be put low down for me to be able to see her and communicate with her [id number]. No suicidal or homicidal ideation. Labs: Reviewed. Imp: Major neurocognitive disorder Alzheimer, vascular with delusion, depression. Psychotic disorder unspecified. UTI. Rest unchanged. Plan: No change from initial note. She seems to be responding to the increased Risperdal as an antipsychotic for now. Assessment: Vital Signs/I&O: Vital Signs Date Time Temp Pulse Resp B/P (MAP) Pulse Ox O2 Delivery O2 Flow Rate FiO2 12/15/19 08:00 64 126/68 12/15/19 05:47 98.5 18 94 12/12/19 16:02 Room Air I & O 4/112/14/19 12/15/19 15:00 23:00 07:00 Intake Total 960 ml 240 ml Balance 960 ml 240 ml Labs: Laboratory Tests Test 12/14/19 11:32 12/14/19 16:51 12/14/19 19:03 12/15/19 07:18 Glucose (Fingerstick) 237 mg/dL (70-99) H 104 mg/dL (70-99) H 117 mg/dL (70-99) H 157 mg/dL (70-99) H Current Medications: I have reviewed the current psychotropics carefully including drug interactions. Risk benefit ratio favors no change other than as noted in my dictated progress note. Diagnosis: Problems: (1) Impulse control disorder (2) Visual hallucinations (3) Anxiety disorder (4) Psychotic disorder (5) Dementia, vascular, with depression (6) Dementia, vascular, with delusions (7) Dementia in Alzheimer's disease with depression (8) Dementia in Alzheimer's disease with delusions (9) Major neurocognitive disorder VINITA PONCE MD Dec 15, 2019 10:33
[2019-12-15 15:52] VITALS: BP 115/62
[2019-12-15 16:25] LABS: BASO % 0 % (0-3); EOS % 0 % (0-3); HEMATOCRIT 33.8 % (36.0-47.0); HEMOGLOBIN 11.1 g/dL (12.0-15.5); LYMPH # 0.4 x10^3/uL (1.0-4.8); LYMPH % 5 % (24-48); MEAN CORPUSCULAR HEMOGLOBIN 29 pg (25-35); MEAN CORPUSCULAR HGB CONC 33 g/dL (31-37); MEAN CORPUSCULAR VOLUME 89 fL (79-100); MONO # 0.5 x10^3/uL (0.0-1.1); MONO % 6 % (0-9); NEUT # 6.8 x10^3uL (1.8-7.7); NEUT % 88 % (31-73); PLATELET COUNT 197 x10^3/uL (140-400); RED CELL DISTRIBUTION WIDTH 16.1 % (11.5-14.5); WHITE BLOOD COUNT 7.7 x10^3/uL (4.0-11.0)
--- NOTE | 2019-12-15 16:25 | RAD ---
EXAM: CHEST AP ONLY INDICATION: Lower oxygen.. 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 Heart is moderately enlarged. Great vessels show aortic calcification and tortuosity similar to prior. Mild prominence of the mediastinal contours is present, likely reflection of patient positioning. A moderate hiatal hernia is better demonstrated on this examination as well. Lungs show lower volumes and increased in ill-defined opacities with engorgement of the pulmonary vessels. There is no pleural effusion or pneumothorax. There are no significant osseous abnormalities. IMPRESSION: Hypoventilatory chest showing cardiomegaly and increased pulmonary vascular markings with ill-defined opacities bilaterally. Query developing pulmonary edema. Electronically signed by: Gillian Koenig MD (12/15/2019 4:22 PM) [id number]
[2019-12-15 16:28] LABS: CALCIUM 8.3 mg/dL (8.5-10.1); CREATININE 0.9 mg/dL (0.6-1.0); GFR 59.1; POTASSIUM 3.7 mmol/L (3.5-5.1)
[2019-12-15 16:34] LABS: ALBUMIN 2.2 g/dL (3.4-5.0); ALBUMIN/GLOBULIN RATIO 0.5 (1.0-1.7); TOTAL BILIRUBIN 0.4 mg/dL (0.2-1.0); TOTAL PROTEIN 6.3 g/dL (6.4-8.2)
[2019-12-15] MEDS ORDERED: FUROSEMIDE 80 MG TABLET PO ONE (19:00)
[2019-12-15] MEDS: METOPROLOL SUCC 24HR ER 50 MG TAB.ER.24H. PO SCH (19:46)
[2019-12-15] MEDS: MIRTAZAPINE 7.5 MG TABLET. PO SCH (19:46)
[2019-12-15] MEDS: CHOLECALCIFEROL (VITAMIN D3) 1,000 UNIT TABLET PO SCH (19:46)
[2019-12-15] MEDS: traZODone 50 MG TABLET. PO SCH (19:46)
--- NOTE | 2019-12-15 21:59 | PDOC ---
Exam Note: Jamey Note: Please also refer to the separate dictated note~for this date of service dictated separately.~Patient seen individually. Discussed the patient with Nursing staff reviewed the chart.~Reviewed interim history and current functioning. Reviewed vital signs,~Labs/ Radiology~and current medications noted below. Continue current treatment with the changes noted in the dictated addendum note Assessment: Vital Signs/I&O: Vital Signs Date Time Temp Pulse Resp B/P (MAP) Pulse Ox O2 Delivery O2 Flow Rate FiO2 12/15/19 19:46 61 115/62 12/15/19 18:30 97.6 12/15/19 15:52 22 91 12/12/19 16:02 Room Air I & O 12/14/19 12/14/19 12/15/19 15:00 23:00 07:00 Intake Total 960 ml 240 ml Balance 960 ml 240 ml Labs: Laboratory Tests Test 12/15/19 07:18 12/15/19 11:44 12/15/19 16:00 12/15/19 16:56 Glucose (Fingerstick) 157 mg/dL (70-99) H 153 mg/dL (70-99) H 122 mg/dL (70-99) H White Blood Count 7.7 x10^3/uL (4.0-11.0) Red Blood Count 3.80 x10^6/uL (3.50-5.40) Hemoglobin 11.1 g/dL (12.0-15.5) L Hematocrit 33.8 % (36.0-47.0) L Mean Corpuscular Volume 89 fL (79-100) Mean Corpuscular Hemoglobin 29 pg (25-35) Mean Corpuscular Hemoglobin Concent 33 g/dL (31-37) Red Cell Distribution Width 16.1 % (11.5-14.5) H Platelet Count 197 x10^3/uL (140-400) Neutrophils (%) (Auto) 88 % (31-73) H Lymphocytes (%) (Auto) 5 % (24-48) L Monocytes (%) (Auto) 6 % (0-9) Eosinophils (%) (Auto) 0 % (0-3) Basophils (%) (Auto) 0 % (0-3) Neutrophils # (Auto) 6.8 x10^3uL (1.8-7.7) Lymphocytes # (Auto) 0.4 x10^3/uL (1.0-4.8) L Monocytes # (Auto) 0.5 x10^3/uL (0.0-1.1) Eosinophils # (Auto) 0.0 x10^3/uL (0.0-0.7) Basophils # (Auto) 0.0 x10^3/uL (0.0-0.2) Sodium Level 142 mmol/L (136-145) Potassium Level 3.7 mmol/L (3.5-5.1) Chloride Level 105 mmol/L (98-107) Carbon Dioxide Level 27 mmol/L (21-32) Anion Gap 10 (6-14) Blood Urea Nitrogen 19 mg/dL (7-20) Creatinine 0.9 mg/dL (0.6-1.0) Estimated GFR (Cockcroft-Gault) 59.1 BUN/Creatinine Ratio 21 (6-20) H Glucose Level 70 mg/dL (70-99) Calcium Level 8.3 mg/dL (8.5-10.1) L Total Bilirubin 0.4 mg/dL (0.2-1.0) Aspartate Amino Transferase (AST) 165 U/L (15-37) H Alanine Aminotransferase (ALT) 184 U/L (14-59) H Alkaline Phosphatase 87 U/L (46-116) Total Protein 6.3 g/dL (6.4-8.2) L Albumin 2.2 g/dL (3.4-5.0) L Albumin/Globulin Ratio 0.5 (1.0-1.7) L Test 12/15/19 19:05 Glucose (Fingerstick) 131 mg/dL (70-99) H Current Medications: Meds: Current Medications Medications (Trade) Dose Ordered Sig/Dinh Route PRN Reason Start Time Stop Time Status Last Admin Dose Admin Furosemide (Lasix) 80 mg 1X ONCE PO 12/15/19 19:00 12/15/19 19:01 DC 12/15/19 19:45 I have reviewed the current psychotropics carefully including drug interactions. Risk benefit ratio favors no change other than as noted in my dictated progress note. 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
[2019-12-16] VITALS (9 sets, daily range): BP systolic 81–119; BP diastolic 41–71
[2019-12-16] MEDS: LEVOTHYROXINE 75 MCG TABLET PO SCH (05:24)
[2019-12-16 06:35] LABS: BILIRUBIN,URINE NEG (NEG); CLARITY,URINE HAZY; COLOR,URINE YELLOW; GLUCOSE,URINE NEG (NEG); NITRITE,URINE NEG (NEG); RBC,URINE OCC /HPF (0-2); UROBILINOGEN,URINE 0.2 mg/dL (0.2 mg/dL); WBC,URINE 20-40 /HPF (0-4)
[2019-12-16 06:36] LABS: BACTERIA,URINE MANY /HPF (0-FEW); SQUAMOUS EPITHELIAL CELL,UR MOD /LPF
[2019-12-16] MEDS: traMADol 50 MG TABLET PO PRN ×2 (06:48→08:18)
[2019-12-16] MEDS: PANTOPRAZOLE 40 MG TABLET. PO SCH ×2 (07:30→08:18)
[2019-12-16] MEDS: INSULIN LISPRO 300 UNITS/3 ML VIAL. SQ SCH ×3 (08:00→16:58)
[2019-12-16] MEDS: NYSTATIN TOPICAL POWDER 15GM BOTTLE. TP SCH ×3 (08:16→21:00)
[2019-12-16] MEDS: POLYVINYL ALCOHOL 1.4% OPHTH SOLUTION 15ML BOTTLE. OU SCH ×2 (08:17→21:00)
[2019-12-16] MEDS: APIXABAN 5 MG TABLET. PO SCH ×2 (08:18→21:00)
[2019-12-16] MEDS: metFORMIN 500 MG TABLET PO SCH ×2 (08:18→17:00)
[2019-12-16] MEDS: LACTOBACILLUS RHAMNOSUS GG 1 CAPSULE. PO SCH (08:18)
[2019-12-16] MEDS: POTASSIUM CHLORIDE 20 MEQ TABLET.ER. PO SCH (08:18)
[2019-12-16] MEDS: busPIRone 5 MG TABLET. PO SCH ×2 (08:19→21:00)
[2019-12-16] MEDS: AMIODARONE HCL 200 MG TABLET PO SCH (08:19)
[2019-12-16] MEDS: LOSARTAN 25 MG TABLET. PO SCH (08:19)
[2019-12-16] MEDS: FUROSEMIDE 40 MG TABLET PO SCH (08:19)
[2019-12-16] MEDS: risperiDONE 0.5 MG TABLET. PO SCH ×2 (08:20→17:00)
--- NOTE | 2019-12-16 12:51 | PDOC ---
Exam Note: Jamey Note: S/O: This note is a late entry for DOS 12/15/2019 covers elements not covered in my initial note. We are still waiting on the COVID-19 screen on two patients before the unit can be opened for admissions and discharges per the [facility] ([facility])/Centers for Disease Control (CDC). Discussed the patient with nursing staff, reviewed the chart. Treatment team meeting was done in the morning with social service staff Hannah in [facility], Katie PEÑA, nursing staff and myself. The patient was seen on audio- visual rounds in the evening with Augustina PEÑA. Appetite 70%. Patient slept 6- 1/2 hours previous night. She denied being bitten by any alligators and seemed to have a smile when I questioned her on this in the evening. She is also less fixated about snakes being around her. ROS: She is in a wheelchair, head bent forward. Oriented to herself and situation. Complains of back hurting. No CV, , Pulmonary, Eye system symptoms on review. MSE: Reasonably oriented. Speech has some latency. Abstraction is fair. Computation impaired. Language function is intact. Mood and affect somewhat withdrawn. No suicidal or homicidal ideation. Labs: Reviewed. Imp: Major neurocognitive disorder Alzheimer, vascular with delusion, depression. Psychotic disorder unspecified. UTI. Rest unchanged. Plan: No change from initial note. Assessment: Vital Signs/I&O: Vital Signs Date Time Temp Pulse Resp B/P (MAP) Pulse Ox O2 Delivery O2 Flow Rate FiO2 12/16/19 08:20 61 118/71 12/16/19 06:48 93 12/16/19 06:06 97.7 16 12/12/19 16:02 Room Air I & O 12/15/19 12/15/19 12/16/19 15:00 23:00 07:00 Intake Total 360 ml 120 ml Balance 360 ml 120 ml Labs: Laboratory Tests Test 12/15/19 16:00 12/15/19 16:56 12/15/19 19:05 12/16/19 06:00 White Blood Count 7.7 x10^3/uL (4.0-11.0) Red Blood Count 3.80 x10^6/uL (3.50-5.40) Hemoglobin 11.1 g/dL (12.0-15.5) L Hematocrit 33.8 % (36.0-47.0) L Mean Corpuscular Volume 89 fL (79-100) Mean Corpuscular Hemoglobin 29 pg (25-35) Mean Corpuscular Hemoglobin Concent 33 g/dL (31-37) Red Cell Distribution Width 16.1 % (11.5-14.5) H Platelet Count 197 x10^3/uL (140-400) Neutrophils (%) (Auto) 88 % (31-73) H Lymphocytes (%) (Auto) 5 % (24-48) L Monocytes (%) (Auto) 6 % (0-9) Eosinophils (%) (Auto) 0 % (0-3) Basophils (%) (Auto) 0 % (0-3) Neutrophils # (Auto) 6.8 x10^3uL (1.8-7.7) Lymphocytes # (Auto) 0.4 x10^3/uL (1.0-4.8) L Monocytes # (Auto) 0.5 x10^3/uL (0.0-1.1) Eosinophils # (Auto) 0.0 x10^3/uL (0.0-0.7) Basophils # (Auto) 0.0 x10^3/uL (0.0-0.2) Sodium Level 142 mmol/L (136-145) Potassium Level 3.7 mmol/L (3.5-5.1) Chloride Level 105 mmol/L (98-107) Carbon Dioxide Level 27 mmol/L (21-32) Anion Gap 10 (6-14) Blood Urea Nitrogen 19 mg/dL (7-20) Creatinine 0.9 mg/dL (0.6-1.0) Estimated GFR (Cockcroft-Gault) 59.1 BUN/Creatinine Ratio 21 (6-20) H Glucose Level 70 mg/dL (70-99) Calcium Level 8.3 mg/dL (8.5-10.1) L Total Bilirubin 0.4 mg/dL (0.2-1.0) Aspartate Amino Transferase (AST) 165 U/L (15-37) H Alanine Aminotransferase (ALT) 184 U/L (14-59) H Alkaline Phosphatase 87 U/L (46-116) Total Protein 6.3 g/dL (6.4-8.2) L Albumin 2.2 g/dL (3.4-5.0) L Albumin/Globulin Ratio 0.5 (1.0-1.7) L Glucose (Fingerstick) 122 mg/dL (70-99) H 131 mg/dL (70-99) H Urine Collection Type Void Urine Color Yellow Urine Clarity Hazy Urine pH 6.0 Urine Specific [place] 1.015 Urine Protein Neg (NEG-TRACE) Urine Glucose (UA) Neg mg/dL (NEG) Urine Ketones (Stick) Neg mg/dL (NEG) Urine Blood Neg (NEG) Urine Nitrite Neg (NEG) Urine Bilirubin Neg (NEG) Urine Urobilinogen Dipstick 0.2 mg/dL (0.2 mg/dL) Urine Leukocyte Esterase Small (NEG) Urine RBC Occ /HPF (0-2) Urine WBC 20-40 /HPF (0-4) Urine Squamous Epithelial Cells Mod /LPF Urine Bacteria Many /HPF (0-FEW) Urine Mucus Slight /LPF Test 12/16/19 07:54 12/16/19 11:45 Glucose (Fingerstick) 115 mg/dL (70-99) H 138 mg/dL (70-99) H Current Medications: Meds: Current Medications Medications (Trade) Dose Ordered Sig/Dinh Route PRN Reason Start Time Stop Time Status Last Admin Dose Admin Furosemide (Lasix) 80 mg 1X ONCE PO 12/15/19 19:00 12/15/19 19:01 DC 12/15/19 19:45 I have reviewed the current psychotropics carefully including drug interactions. Risk benefit ratio favors no change other than as noted in my dictated progress note. Diagnosis: Problems: (1) Impulse control disorder (2) Visual hallucinations (3) Anxiety disorder (4) Psychotic disorder (5) Dementia, vascular, with depression (6) Dementia, vascular, with delusions (7) Dementia in Alzheimer's disease with depression (8) Dementia in Alzheimer's disease with delusions (9) Major neurocognitive disorder VINITA PONCE MD Dec 16, 2019 12:51
[2019-12-16] MEDS: ONDANSETRON ODT 4 MG TAB.RAPDIS PO PRN (19:55)
[2019-12-16] MEDS ORDERED: DEXTROSE ORAL GEL 15 GM TUBE. ONE (20:23)
[2019-12-16] MEDS: traZODone 50 MG TABLET. PO SCH (21:00)
[2019-12-16] MEDS: METOPROLOL SUCC 24HR ER 50 MG TAB.ER.24H. PO SCH (21:00)
[2019-12-16] MEDS: CHOLECALCIFEROL (VITAMIN D3) 1,000 UNIT TABLET PO SCH (21:00)
[2019-12-16] MEDS: IV NORMAL SALINE 1,000ML 1,000 ML IV SCH (21:00)
[2019-12-16] MEDS: MIRTAZAPINE 7.5 MG TABLET. PO SCH (21:00)
--- NOTE | 2019-12-16 21:59 | PDOC ---
Exam Note: Jamey Note: Please also refer to the separate dictated note~for this date of service dictated separately.~Patient seen individually. Discussed the patient with Nursing staff reviewed the chart.~Reviewed interim history and current functioning. Reviewed vital signs,~Labs/ Radiology~and current medications noted below. Continue current treatment with the changes noted in the dictated addendum note Assessment: Vital Signs/I&O: Vital Signs Date Time Temp Pulse Resp B/P (MAP) Pulse Ox O2 Delivery O2 Flow Rate FiO2 12/16/19 21:36 97.9 62 16 95/58 (70) 92 Room Air I & O 12/15/19 12/15/19 12/16/19 15:00 23:00 07:00 Intake Total 360 ml 120 ml Balance 360 ml 120 ml Labs: Laboratory Tests Test 12/16/19 06:00 12/16/19 07:54 12/16/19 11:45 12/16/19 16:52 Urine Collection Type Void Urine Color Yellow Urine Clarity Hazy Urine pH 6.0 Urine Specific [place] 1.015 Urine Protein Neg (NEG-TRACE) Urine Glucose (UA) Neg mg/dL (NEG) Urine Ketones (Stick) Neg mg/dL (NEG) Urine Blood Neg (NEG) Urine Nitrite Neg (NEG) Urine Bilirubin Neg (NEG) Urine Urobilinogen Dipstick 0.2 mg/dL (0.2 mg/dL) Urine Leukocyte Esterase Small (NEG) Urine RBC Occ /HPF (0-2) Urine WBC 20-40 /HPF (0-4) Urine Squamous Epithelial Cells Mod /LPF Urine Bacteria Many /HPF (0-FEW) Urine Mucus Slight /LPF Glucose (Fingerstick) 115 mg/dL (70-99) H 138 mg/dL (70-99) H 304 mg/dL (70-99) H Test 12/16/19 19:16 12/16/19 20:18 12/16/19 20:40 12/16/19 21:03 Glucose (Fingerstick) 86 mg/dL (70-99) 54 mg/dL (70-99) L 38 mg/dL (70-99) *L 135 mg/dL (70-99) H Test 12/16/19 21:38 Glucose (Fingerstick) 162 mg/dL (70-99) H Current Medications: Meds: Current Medications Medications (Trade) Dose Ordered Sig/Dinh Route PRN Reason Start Time Stop Time Status Last Admin Dose Admin Sodium Chloride 1,000 ml @ 100 mls/hr Q10H IV 12/16/19 21:00 12/16/19 21:00 I have reviewed the current psychotropics carefully including drug interactions. Risk benefit ratio favors no change other than as noted in my dictated progress note. 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
[2019-12-17 01:05] VITALS: BP 132/71
[2019-12-17] MEDS: LEVOTHYROXINE 75 MCG TABLET PO SCH (05:27)
[2019-12-17 05:50] VITALS: BP 134/65
[2019-12-17 06:55] LABS: BASO % 1 % (0-3); CREATININE 1.1 mg/dL (0.6-1.0); EOS % 1 % (0-3); GFR 46.9; HEMOGLOBIN 11.4 g/dL (12.0-15.5); LYMPH # 0.4 x10^3/uL (1.0-4.8); LYMPH % 4 % (24-48); MEAN CORPUSCULAR HEMOGLOBIN 29 pg (25-35); MEAN CORPUSCULAR HGB CONC 33 g/dL (31-37); MEAN CORPUSCULAR VOLUME 89 fL (79-100); MONO # 0.5 x10^3/uL (0.0-1.1); MONO % 5 % (0-9); NEUT # 8.6 x10^3uL (1.8-7.7); NEUT % 90 % (31-73); PLATELET COUNT 221 x10^3/uL (140-400); RED BLOOD COUNT 3.91 x10^6/uL (3.50-5.40); RED CELL DISTRIBUTION WIDTH 16.1 % (11.5-14.5); WHITE BLOOD COUNT 9.6 x10^3/uL (4.0-11.0)
[2019-12-17] MEDS: IV NORMAL SALINE 1,000ML 1,000 ML IV SCH (07:00)
[2019-12-17 07:31] LABS: % BANDS 2 % (0-9); % LYMPHS 4 % (24-48); % MONOS 5 % (0-10); % SEGS 89 % (35-66)
[2019-12-17 07:32] LABS: PLT ESTIMATE ADEQUATE (ADEQUATE)
[2019-12-17] MEDS: INSULIN LISPRO 300 UNITS/3 ML VIAL. SQ SCH ×3 (08:00→17:00)
[2019-12-17] MEDS: PANTOPRAZOLE 40 MG TABLET. PO SCH (08:46)
[2019-12-17] MEDS: APIXABAN 5 MG TABLET. PO SCH ×2 (08:46→20:19)
[2019-12-17] MEDS: metFORMIN 500 MG TABLET PO SCH ×2 (08:46→17:00)
[2019-12-17] MEDS: NYSTATIN TOPICAL POWDER 15GM BOTTLE. TP SCH ×3 (08:46→20:20)
[2019-12-17] MEDS: busPIRone 5 MG TABLET. PO SCH ×2 (08:46→20:20)
[2019-12-17] MEDS: LACTOBACILLUS RHAMNOSUS GG 1 CAPSULE. PO SCH (08:47)
[2019-12-17] MEDS: AMIODARONE HCL 200 MG TABLET PO SCH (08:47)
[2019-12-17] MEDS: POLYVINYL ALCOHOL 1.4% OPHTH SOLUTION 15ML BOTTLE. OU SCH ×2 (08:47→20:20)
[2019-12-17] MEDS: risperiDONE 0.5 MG TABLET. PO SCH ×2 (08:49→17:00)
[2019-12-17 16:10] VITALS: BP 101/50
[2019-12-17] MEDS: traZODone 50 MG TABLET. PO SCH (20:19)
[2019-12-17] MEDS: CHOLECALCIFEROL (VITAMIN D3) 1,000 UNIT TABLET PO SCH (20:19)
[2019-12-17] MEDS: MIRTAZAPINE 7.5 MG TABLET. PO SCH (20:19)
--- NOTE | 2019-12-17 21:42 | PDOC ---
Exam Note: Jamey Note: S/O: This note is a late entry for DOS 12/16/2019 covers elements not covered in my initial note. Discussed the patient with nursing staff, reviewed the chart. The patient was seen on audio-visual rounds in the evening with Marlon PEÑA. Nursing report with Tabitha PEÑA. She remains head bent forward. Denies being bitten by alligators. She has a smile when I addressed this with her. Seems to have some insight into the inappropriateness of comments in this respect. ROS: No CV, , Pulmonary, Eye system symptoms on review. MSE: Oriented to herself and situation. Speech has some latency. Abstraction is fair. Computation impaired. Language function is intact. Mood and affect somewhat withdrawn. No suicidal or homicidal ideation. Labs: Reviewed. Imp: Major neurocognitive disorder Alzheimer, vascular with delusion, depression. Psychotic disorder unspecified. UTI. Plan: No change from initial note. Assessment: Vital Signs/I&O: Vital Signs Date Time Temp Pulse Resp B/P (MAP) Pulse Ox O2 Delivery O2 Flow Rate FiO2 12/17/19 16:10 100.0 62 20 101/50 (67) 90 2.0 12/17/19 05:50 Nasal Cannula I & O 12/16/19 12/16/19 12/17/19 15:00 23:00 07:00 Intake Total 480 ml 240 ml Output Total 100 ml Balance 480 ml 140 ml Labs: Laboratory Tests Test 12/17/19 00:58 12/17/19 05:37 12/17/19 06:37 12/17/19 07:17 Glucose (Fingerstick) 115 mg/dL (70-99) H 104 mg/dL (70-99) H 109 mg/dL (70-99) H White Blood Count 9.6 x10^3/uL (4.0-11.0) Red Blood Count 3.91 x10^6/uL (3.50-5.40) Hemoglobin 11.4 g/dL (12.0-15.5) L Hematocrit 35.0 % (36.0-47.0) L Mean Corpuscular Volume 89 fL (79-100) Mean Corpuscular Hemoglobin 29 pg (25-35) Mean Corpuscular Hemoglobin Concent 33 g/dL (31-37) Red Cell Distribution Width 16.1 % (11.5-14.5) H Platelet Count 221 x10^3/uL (140-400) Neutrophils (%) (Auto) 90 % (31-73) H Lymphocytes (%) (Auto) 4 % (24-48) L Monocytes (%) (Auto) 5 % (0-9) Eosinophils (%) (Auto) 1 % (0-3) Basophils (%) (Auto) 1 % (0-3) Neutrophils # (Auto) 8.6 x10^3uL (1.8-7.7) H Lymphocytes # (Auto) 0.4 x10^3/uL (1.0-4.8) L Monocytes # (Auto) 0.5 x10^3/uL (0.0-1.1) Eosinophils # (Auto) 0.0 x10^3/uL (0.0-0.7) Basophils # (Auto) 0.0 x10^3/uL (0.0-0.2) Segmented Neutrophils % 89 % (35-66) H Band Neutrophils % 2 % (0-9) Lymphocytes % 4 % (24-48) L Monocytes % 5 % (0-10) Platelet Estimate Adequate (ADEQUATE) Sodium Level 142 mmol/L (136-145) Potassium Level 4.0 mmol/L (3.5-5.1) Chloride Level 105 mmol/L (98-107) Carbon Dioxide Level 28 mmol/L (21-32) Anion Gap 9 (6-14) Blood Urea Nitrogen 24 mg/dL (7-20) H Creatinine 1.1 mg/dL (0.6-1.0) H Estimated GFR (Cockcroft-Gault) 46.9 Glucose Level 117 mg/dL (70-99) H Calcium Level 8.0 mg/dL (8.5-10.1) L Test 12/17/19 11:48 12/17/19 17:14 12/17/19 19:22 Glucose (Fingerstick) 148 mg/dL (70-99) H 109 mg/dL (70-99) H 117 mg/dL (70-99) H Current Medications: Meds: Current Medications Medications (Trade) Dose Ordered Sig/Dinh Route PRN Reason Start Time Stop Time Status Last Admin Dose Admin Risperidone (RisperDAL) 0.5 mg DAILY PO 4/4/20 09:00 12/17/19 08:49 I have reviewed the current psychotropics carefully including drug interactions. Risk benefit ratio favors no change other than as noted in my dictated progress note. Diagnosis: Problems: (1) Impulse control disorder (2) Visual hallucinations (3) Anxiety disorder (4) Psychotic disorder (5) Dementia, vascular, with depression (6) Dementia, vascular, with delusions (7) Dementia in Alzheimer's disease with depression (8) Dementia in Alzheimer's disease with delusions (9) Major neurocognitive disorder VINITA PONCE MD Dec 17, 2019 21:42
--- NOTE | 2019-12-17 21:58 | PDOC ---
Exam Note: Jamey Note: Please also refer to the separate dictated note~for this date of service dictated separately.~Patient seen individually. Discussed the patient with Nursing staff reviewed the chart.~Reviewed interim history and current functioning. Reviewed vital signs,~Labs/ Radiology~and current medications noted below. Continue current treatment with the changes noted in the dictated addendum note Assessment: Vital Signs/I&O: Vital Signs Date Time Temp Pulse Resp B/P (MAP) Pulse Ox O2 Delivery O2 Flow Rate FiO2 12/17/19 16:10 100.0 62 20 101/50 (67) 90 2.0 12/17/19 05:50 Nasal Cannula I & O 12/16/19 12/16/19 12/17/19 15:00 23:00 07:00 Intake Total 480 ml 240 ml Output Total 100 ml Balance 480 ml 140 ml Labs: Laboratory Tests Test 12/17/19 00:58 12/17/19 05:37 12/17/19 06:37 12/17/19 07:17 Glucose (Fingerstick) 115 mg/dL (70-99) H 104 mg/dL (70-99) H 109 mg/dL (70-99) H White Blood Count 9.6 x10^3/uL (4.0-11.0) Red Blood Count 3.91 x10^6/uL (3.50-5.40) Hemoglobin 11.4 g/dL (12.0-15.5) L Hematocrit 35.0 % (36.0-47.0) L Mean Corpuscular Volume 89 fL (79-100) Mean Corpuscular Hemoglobin 29 pg (25-35) Mean Corpuscular Hemoglobin Concent 33 g/dL (31-37) Red Cell Distribution Width 16.1 % (11.5-14.5) H Platelet Count 221 x10^3/uL (140-400) Neutrophils (%) (Auto) 90 % (31-73) H Lymphocytes (%) (Auto) 4 % (24-48) L Monocytes (%) (Auto) 5 % (0-9) Eosinophils (%) (Auto) 1 % (0-3) Basophils (%) (Auto) 1 % (0-3) Neutrophils # (Auto) 8.6 x10^3uL (1.8-7.7) H Lymphocytes # (Auto) 0.4 x10^3/uL (1.0-4.8) L Monocytes # (Auto) 0.5 x10^3/uL (0.0-1.1) Eosinophils # (Auto) 0.0 x10^3/uL (0.0-0.7) Basophils # (Auto) 0.0 x10^3/uL (0.0-0.2) Segmented Neutrophils % 89 % (35-66) H Band Neutrophils % 2 % (0-9) Lymphocytes % 4 % (24-48) L Monocytes % 5 % (0-10) Platelet Estimate Adequate (ADEQUATE) Sodium Level 142 mmol/L (136-145) Potassium Level 4.0 mmol/L (3.5-5.1) Chloride Level 105 mmol/L (98-107) Carbon Dioxide Level 28 mmol/L (21-32) Anion Gap 9 (6-14) Blood Urea Nitrogen 24 mg/dL (7-20) H Creatinine 1.1 mg/dL (0.6-1.0) H Estimated GFR (Cockcroft-Gault) 46.9 Glucose Level 117 mg/dL (70-99) H Calcium Level 8.0 mg/dL (8.5-10.1) L Test 12/17/19 11:48 12/17/19 17:14 12/17/19 19:22 Glucose (Fingerstick) 148 mg/dL (70-99) H 109 mg/dL (70-99) H 117 mg/dL (70-99) H Current Medications: Meds: Current Medications Medications (Trade) Dose Ordered Sig/Dinh Route PRN Reason Start Time Stop Time Status Last Admin Dose Admin Risperidone (RisperDAL) 0.5 mg DAILY PO 12/17/19 09:00 12/17/19 08:49 I have reviewed the current psychotropics carefully including drug interactions. Risk benefit ratio favors no change other than as noted in my dictated progress note. Diagnosis: Problems: (1) Impulse control disorder (2) Visual hallucinations (3) Anxiety disorder (4) Psychotic disorder (5) Dementia, vascular, with depression (6) Dementia, vascular, with delusions (7) Dementia in Alzheimer's disease with depression (8) Dementia in Alzheimer's disease with delusions (9) Major neurocognitive disorder VINITA PONCE MD Dec 17, 2019 21:58
[2019-12-18] MEDS: LEVOTHYROXINE 75 MCG TABLET PO SCH (05:55)
[2019-12-18 06:00] VITALS: BP 113/55
[2019-12-18] MEDS: NYSTATIN TOPICAL POWDER 15GM BOTTLE. TP SCH ×3 (07:45→20:03)
[2019-12-18] MEDS: busPIRone 5 MG TABLET. PO SCH ×2 (07:46→20:03)
[2019-12-18] MEDS: risperiDONE 0.5 MG TABLET. PO SCH ×2 (07:46→17:53)
[2019-12-18] MEDS: metFORMIN 500 MG TABLET PO SCH ×2 (07:46→17:53)
[2019-12-18] MEDS: POLYVINYL ALCOHOL 1.4% OPHTH SOLUTION 15ML BOTTLE. OU SCH ×2 (07:46→20:03)
[2019-12-18] MEDS: APIXABAN 5 MG TABLET. PO SCH ×2 (07:46→20:03)
[2019-12-18] MEDS: LACTOBACILLUS RHAMNOSUS GG 1 CAPSULE. PO SCH (07:46)
[2019-12-18] MEDS: PANTOPRAZOLE 40 MG TABLET. PO SCH (07:46)
[2019-12-18] MEDS: AMIODARONE HCL 200 MG TABLET PO SCH ×2 (07:47→07:48)
[2019-12-18] MEDS: INSULIN LISPRO 300 UNITS/3 ML VIAL. SQ SCH ×3 (07:47→17:00)
[2019-12-18] MEDS: FUROSEMIDE 40 MG TABLET PO SCH (14:00)
[2019-12-18] MEDS: CEPHALEXIN 250 MG CAPSULE PO SCH ×2 (14:00→20:04)
[2019-12-18 16:01] VITALS: BP 142/71
[2019-12-18] MEDS: CHOLECALCIFEROL (VITAMIN D3) 1,000 UNIT TABLET PO SCH (20:03)
[2019-12-18] MEDS: traZODone 50 MG TABLET. PO SCH (20:03)
[2019-12-18] MEDS: MIRTAZAPINE 7.5 MG TABLET. PO SCH (20:03)
[2019-12-19] MEDS: LEVOTHYROXINE 75 MCG TABLET PO SCH (05:06)
[2019-12-19 06:17] VITALS: BP 138/76
[2019-12-19 06:34] LABS: CALCIUM 8.1 mg/dL (8.5-10.1); CREATININE 1.2 mg/dL (0.6-1.0); GFR 42.4; POTASSIUM 3.5 mmol/L (3.5-5.1)
[2019-12-19] MEDS: INSULIN LISPRO 300 UNITS/3 ML VIAL. SQ SCH ×3 (07:59→17:00)
[2019-12-19] MEDS: risperiDONE 0.5 MG TABLET. PO SCH ×2 (08:14→17:20)
[2019-12-19] MEDS: CEPHALEXIN 250 MG CAPSULE PO SCH (08:14)
[2019-12-19] MEDS: AMIODARONE HCL 200 MG TABLET PO SCH (08:14)
[2019-12-19] MEDS: APIXABAN 5 MG TABLET. PO SCH (08:14)
[2019-12-19] MEDS: busPIRone 5 MG TABLET. PO SCH (08:15)
[2019-12-19] MEDS: FUROSEMIDE 40 MG TABLET PO SCH (08:15)
[2019-12-19] MEDS: LACTOBACILLUS RHAMNOSUS GG 1 CAPSULE. PO SCH (08:15)
[2019-12-19] MEDS: metFORMIN 500 MG TABLET PO SCH ×2 (08:17→17:19)
--- NOTE | 2019-12-19 08:30 | PDOC ---
Exam Note: Jamey Note: S/O: This note is a late entry for DOS 12/17/2019 covers elements not covered in my initial note. Discussed the patient with nursing staff, reviewed the chart. The patient was seen on audio-visual rounds in the evening with Marlon RN. Nursing report was with Xi PEÑA. The patient has had low-grade temperatu re. Previous evening blood sugar was low in the 30s and BP 105/59 mmHg. She received a bolus of fluids per Dr. Sethi and then did a little better. She was confused in the morning. O2 sats were in the 80s, better later. She is less paranoid. ROS: Ambulation impaired in wheelchair. No CV, , Pulmonary, Eye system symptoms on review. MSE: Oriented to herself and situation. Speech has some latency. Abstraction is fair. Computation impaired. Language function is intact. Mood and affect somewhat withdrawn. No suicidal or homicidal ideation. She has not been talking about being bitten by alligators. Labs: Reviewed. Imp: Major neurocognitive disorder Alzheimer, vascular with delusion, depression. Psychotic disorder unspecified. UTI. Plan: No change from initial note. Assessment: Vital Signs/I&O: Vital Signs Date Time Temp Pulse Resp B/P (MAP) Pulse Ox O2 Delivery O2 Flow Rate FiO2 12/19/19 08:14 88 138/76 12/19/19 06:17 99.1 18 92 3.0 12/17/19 05:50 Nasal Cannula I & O 12/18/19 12/18/19 12/19/19 15:00 23:00 07:00 Intake Total 480 ml 240 ml 120 ml Balance 480 ml 240 ml 120 ml Labs: Laboratory Tests Test 12/18/19 12:01 12/18/19 17:17 12/18/19 19:37 12/19/19 05:54 Glucose (Fingerstick) 137 mg/dL (70-99) H 116 mg/dL (70-99) H 143 mg/dL (70-99) H Sodium Level 144 mmol/L (136-145) Potassium Level 3.5 mmol/L (3.5-5.1) Chloride Level 106 mmol/L (98-107) Carbon Dioxide Level 28 mmol/L (21-32) Anion Gap 10 (6-14) Blood Urea Nitrogen 24 mg/dL (7-20) H Creatinine 1.2 mg/dL (0.6-1.0) H Estimated GFR (Cockcroft-Gault) 42.4 Glucose Level 121 mg/dL (70-99) H Calcium Level 8.1 mg/dL (8.5-10.1) L Test 12/19/19 07:29 Glucose (Fingerstick) 123 mg/dL (70-99) H Current Medications: Meds: Current Medications Medications (Trade) Dose Ordered Sig/Dinh Route PRN Reason Start Time Stop Time Status Last Admin Dose Admin Furosemide (Lasix) 60 mg DAILY PO 12/18/19 14:00 12/19/19 08:15 Cephalexin HCl (Keflex) 250 mg BID PO 12/18/19 14:00 12/23/19 13:59 12/19/19 08:14 I have reviewed the current psychotropics carefully including drug interactions. Risk benefit ratio favors no change other than as noted in my dictated progress note. Diagnosis: Problems: (1) Impulse control disorder (2) Anxiety disorder (3) Psychotic disorder (4) Dementia, vascular, with depression (5) Dementia, vascular, with delusions (6) Dementia in Alzheimer's disease with depression (7) Dementia in Alzheimer's disease with delusions (8) Major neurocognitive disorder VINITA PONCE MD Dec 19, 2019 08:30
--- NOTE | 2019-12-19 08:56 | PDOC ---
Exam Note: Jamey Note: S/O: This note is a late entry for DOS 12/18/2019 covers elements not covered in my initial note. Discussed the patient with nursing staff, reviewed the chart. The patient was seen on audio-visual rounds in the evening with Teri PEÑA. Nursing report was with Xi PEÑA. She does have UTI, remains on 3L oxygen. Chest x-ray shows some pulmonary congestion. ROS: Shortness of breath, impaired ambulation on wheelchair. No CV, , Eye sy stem symptoms on review. MSE: Oriented to herself and situation. Speech has some latency. Abstraction is fair. Computation impaired. Language function is intact. Mood and affect somewhat withdrawn. No suicidal or homicidal ideation. Labs: Reviewed. Imp: Major neurocognitive disorder Alzheimer, vascular with delusion, depression. Psychotic disorder unspecified. UTI. Plan: No change from initial note. Assessment: Vital Signs/I&O: Vital Signs Date Time Temp Pulse Resp B/P (MAP) Pulse Ox O2 Delivery O2 Flow Rate FiO2 12/19/19 08:14 88 138/76 12/19/19 06:17 99.1 18 92 3.0 12/17/19 05:50 Nasal Cannula I & O 12/18/19 12/18/19 12/19/19 14:59 22:59 06:59 Intake Total 480 ml 240 ml 120 ml Balance 480 ml 240 ml 120 ml Labs: Laboratory Tests Test 12/18/19 12:01 12/18/19 17:17 12/18/19 19:37 12/19/19 05:54 Glucose (Fingerstick) 137 mg/dL (70-99) H 116 mg/dL (70-99) H 143 mg/dL (70-99) H Sodium Level 144 mmol/L (136-145) Potassium Level 3.5 mmol/L (3.5-5.1) Chloride Level 106 mmol/L (98-107) Carbon Dioxide Level 28 mmol/L (21-32) Anion Gap 10 (6-14) Blood Urea Nitrogen 24 mg/dL (7-20) H Creatinine 1.2 mg/dL (0.6-1.0) H Estimated GFR (Cockcroft-Gault) 42.4 Glucose Level 121 mg/dL (70-99) H Calcium Level 8.1 mg/dL (8.5-10.1) L Test 12/19/19 07:29 Glucose (Fingerstick) 123 mg/dL (70-99) H Current Medications: Meds: Current Medications Medications (Trade) Dose Ordered Sig/Dinh Route PRN Reason Start Time Stop Time Status Last Admin Dose Admin Furosemide (Lasix) 60 mg DAILY PO 12/18/19 14:00 12/19/19 08:15 Cephalexin HCl (Keflex) 250 mg BID PO 12/18/19 14:00 12/23/19 13:59 12/19/19 08:14 I have reviewed the current psychotropics carefully including drug interactions. Risk benefit ratio favors no change other than as noted in my dictated progress note. Diagnosis: Problems: (1) Impulse control disorder (2) Visual hallucinations (3) Anxiety disorder (4) Psychotic disorder (5) Dementia, vascular, with depression (6) Dementia, vascular, with delusions (7) Dementia in Alzheimer's disease with depression (8) Dementia in Alzheimer's disease with delusions (9) Major neurocognitive disorder VINITA PONCE MD Dec 19, 2019 08:56
[2019-12-19] MEDS: POLYVINYL ALCOHOL 1.4% OPHTH SOLUTION 15ML BOTTLE. OU SCH (09:00)
[2019-12-19] MEDS: NYSTATIN TOPICAL POWDER 15GM BOTTLE. TP SCH ×2 (09:00→14:00)
[2019-12-19] MEDS: traMADol 50 MG TABLET PO PRN (10:34)
--- NOTE | 2019-12-19 14:25 | RAD ---
CHEST AP ONLY History: Shortness of breath Comparison: December 15, 2019 Findings: Diffuse interstitial and alveolar opacities, similar compared to prior. No pneumothorax. No pleural effusion. Hiatal hernia. 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 Impression: 1. Diffuse interstitial and alveolar opacities, similar compared to prior. Electronically signed by: Ronni Gotti DO (12/19/2019 2:23 PM) [id number]
[2019-12-19 18:00] VITALS: BP 104/61
[2019-12-19 18:26] LABS: BGAS PH 7.47 (7.35-7.45)
[2019-12-19] MEDS ORDERED: CEPH-263 PO (18:49)
[2019-12-19] MEDS ORDERED: MIRT15TA PO (18:49)
[2019-12-19] MEDS ORDERED: RISP0.5T24 PO ×2 (18:50→18:51)
[2019-12-19] MEDS ORDERED: OLAN5TAB5 PO (18:50)
[2019-12-19] MEDS ORDERED: TRAZ-120 PO ×2 (18:51→18:52)
--- NOTE | 2019-12-19 22:17 | PDOC ---
Exam Note: Jamey Note: Please also refer to the separate dictated note~for this date of service dictated separately.~Patient seen individually. Discussed the patient with Nursing staff reviewed the chart.~Reviewed interim history and current functioning. Reviewed vital signs,~Labs/ Radiology~and current medications noted below. Continue current treatment with the changes noted in the dictated addendum note Assessment: Vital Signs/I&O: Vital Signs Date Time Temp Pulse Resp B/P (MAP) Pulse Ox O2 Delivery O2 Flow Rate FiO2 12/19/19 18:00 97.8 87 22 104/61 (75) 85 5.0 12/17/19 05:50 Nasal Cannula I & O 12/18/19 12/18/19 12/19/19 15:00 23:00 07:00 Intake Total 480 ml 240 ml 120 ml Balance 480 ml 240 ml 120 ml Labs: Laboratory Tests Test 12/19/19 05:54 12/19/19 07:29 12/19/19 11:58 12/19/19 17:29 Sodium Level 144 mmol/L (136-145) Potassium Level 3.5 mmol/L (3.5-5.1) Chloride Level 106 mmol/L (98-107) Carbon Dioxide Level 28 mmol/L (21-32) Anion Gap 10 (6-14) Blood Urea Nitrogen 24 mg/dL (7-20) H Creatinine 1.2 mg/dL (0.6-1.0) H Estimated GFR (Cockcroft-Gault) 42.4 Glucose Level 121 mg/dL (70-99) H Calcium Level 8.1 mg/dL (8.5-10.1) L Glucose (Fingerstick) 123 mg/dL (70-99) H 134 mg/dL (70-99) H 331 mg/dL (70-99) H Test 12/19/19 18:21 Blood pH 7.47 (7.35-7.45) H Blood Gas PCO2 37 mmHg (35-45) Blood Gas PO2 60 mmHg (71-100) L Blood Gas HCO3 27 mmol/L (22-26) H Arterial Bld O2 Saturation (Calc) 93 % (92-99) FiO2 40 % Current Medications: I have reviewed the current psychotropics carefully including drug interactions. Risk benefit ratio favors no change other than as noted in my dictated progress note. Diagnosis: Problems: (1) Impulse control disorder (2) Anxiety disorder (3) Psychotic disorder (4) Dementia, vascular, with depression (5) Dementia, vascular, with delusions (6) Dementia in Alzheimer's disease with depression (7) Dementia in Alzheimer's disease with delusions (8) Major neurocognitive disorder VINITA PONCE MD Dec 19, 2019 22:17
--- NOTE | 2019-12-29 12:19 | DS ---
DATE OF DISCHARGE: 12/19/2019 DISCHARGE SUMMARY/PSYCHIATRIC PROGRESS This late entry, 12/19/2019, covers elements not covered in my initial note. This summary was dictated at the time of the patient's discharge, but cannot be found in the system and I am re-dictating. REASON FOR ADMISSION: Please refer to the admission history for details. Briefly, the patient is an 89-year-old female referred to us from [facility] on account of active visual hallucinations, seeing snakes and bugs; thinking snakes were going into her vagina. She had fallen in her room because she thought someone was trying to burn her with cigars. Behaviors were deemed dangerous, unmanageable within the context of her memory deficits and marked psychosis. She had failed outpatient psychiatric interventions resulting in this referral. SIGNIFICANT CLINICAL COURSE AND SIGNIFICANT FINDINGS: Following admission, the patient was seen daily individually by myself from a psychiatric standpoint, medical followup with Dr. Calvin. The patient remained quite psychotic, confused. Adjustments were made in her psychotropic. She seemed to respond to a combination of BuSpar 5 mg b.i.d., Risperdal 0.5 mg a.m., 0.75 mg p.m. Zyprexa p.r.n., trazodone at bedtime p.r.n., Remeron 7.5 mg at bedtime. Gradually psychotic symptoms appeared to improve. She was more manageable, but then had medical deterioration as it was COVID-19 exposure on our unit. She was transferred to the Medical/Surgical floor per Dr. Calvin. Prior to discharge, ambulation impaired, in wheelchair. No CV, , pulmonary, eye system symptoms on review. She has vague somatic symptoms. MENTAL STATUS EXAM: Oriented to herself, at times situation. Speech has some latency. She sits head bent forward in the wheelchair. Insight, judgment, recent memory is impaired. Language function intact. Attention span short. Mood and affect somewhat labile, withdrawn at times. LABORATORY DATA: Reviewed. FINAL DIAGNOSES: Psychotic disorder, unspecified; major neurocognitive disorder, Alzheimer, vascular with delusion, depression; anxiety disorder, unspecified; probable urinary tract infection, COVID-19 exposure on the unit. Rest unchanged from admission. DISCHARGE MEDICATIONS: Please refer to the MRAD. DISCHARGE INSTRUCTIONS: Psychiatric and medical followup on the medical/surgical floor. Time for discharge day management greater than 30 minutes. VINITA PONCE MD DR: GIANNA/halle JOB#: [id number] / [id number]
== END 2019-12-19 19:26 | disposition short-term general hospital (02) | DRG 885 ==
LOC: ER 19:06 → GEROPSY 21:09
PROVIDERS: ADMIT Psychiatry & Neurology Psychiatry; ATTEND Psychiatry & Neurology Psychiatry
DX: F23 Brief psychotic disorder (principal); F32.3 Major depressive disorder, single episode, severe with psychotic features; F01.51 Vascular dementia, unspecified severity, with behavioral disturbance; F02.81 Dementia in other diseases classified elsewhere, unspecified severity, with behavioral disturbance; N39.0 Urinary tract infection, site not specified; G30.9 Alzheimer's disease, unspecified; B35.6 Tinea cruris; E03.9 Hypothyroidism, unspecified; E11.9 Type 2 diabetes mellitus without complications; E78.00 Pure hypercholesterolemia, unspecified; E78.5 Hyperlipidemia, unspecified; F41.9 Anxiety disorder, unspecified; F63.9 Impulse disorder, unspecified; G47.00 Insomnia, unspecified; I11.0 Hypertensive heart disease with heart failure; I48.91 Unspecified atrial fibrillation; I50.9 Heart failure, unspecified; J45.909 Unspecified asthma, uncomplicated; K21.9 Gastro-esophageal reflux disease without esophagitis; M19.90 Unspecified osteoarthritis, unspecified site; Z66 Do not resuscitate; Z79.01 Long term (current) use of anticoagulants; Z86.19 Personal history of other infectious and parasitic diseases; Z87.440 Personal history of urinary (tract) infections; Z91.81 History of falling; Z79.899 Other long term (current) drug therapy; Z88.0 Allergy status to penicillin; Z88.2 Allergy status to sulfonamides; Z88.8 Allergy status to other drugs, medicaments and biological substances; Z91.040 Latex allergy status; Z20.818 Contact with and (suspected) exposure to other bacterial communicable diseases
CPT/HCPCS: 36415; 36600; 70450; 71045; 74176; 80048; 80053; 80061; 80076; 81001; 81003; 82306; 82607; 82803; 82947; 83036; 83540; 83550; 83735; 84436; 84439; 84443; 84480; 85007; 85025; 86592; 87086; 87186; 93005; J1815; Q0162; 97530; 99285-25; J7030

== ENCOUNTER 2019-12-19 18:45 | Inpatient (IN) | payer MEDICARE, OTHER ==
[~2019-12-19] VITALS: Ht 147.3 cm; Wt 69.5 kg
[~2019-12-19 18:45] MED LIST: AMIO200T4 PO; APIX5TAB3 PO; ASCO500C PO; BUSP5TAB PO; CALC500T31 PO; CHOL200078 PO; CYAN100031 PO; DEXT15DR5 EACHEYE; DILT180T7 PO; FURO40TA4 PO; INSU100I17 SQ; LACT1CAP2 PO; LEVO75TA5 PO; LOPE2TAB27 PO; LOSA25TA PO; METF10007 PO; METO-247 PO; MULT-114 PO; NYST60PO TP; OMEP40CA45 PO; ONDA4TAB12 PO; POTA20TA4 PO; PRAV40TA2 PO; QUET25TA5 PO; TRAM50TA PO; TRIA15CR50 TP
[2019-12-19] MEDS ORDERED: MIRT15TA PO (18:49)
[2019-12-19] MEDS ORDERED: CEPH-263 PO (18:49)
[2019-12-19] MEDS ORDERED: OLAN5TAB5 PO (18:50)
[2019-12-19] MEDS ORDERED: RISP0.5T24 PO ×2 (18:50→18:51)
[2019-12-19] MEDS ORDERED: TRAZ-120 PO ×2 (18:51→18:52)
[2019-12-19 21:01] VITALS: BP 100/59
[2019-12-19 22:12] VITALS: BP 98/58
[2019-12-19 22:56] VITALS: BP 118/63
[2019-12-19] MEDS ORDERED: ONDANSETRON ODT 4 MG TAB.RAPDIS PO PRN (23:15)
[2019-12-19] MEDS ORDERED: TRIAMCINOLONE ACETONIDE 0.5% TOPICAL CREAM 15GM TUBE. TP PRN (23:15)
[2019-12-19] MEDS ORDERED: traMADol 50 MG TABLET PO PRN (23:15)
[2019-12-20] VITALS (15 sets, daily range): BP systolic 101–148; BP diastolic 48–77
[2019-12-20] MEDS: LEVOTHYROXINE 75 MCG TABLET PO SCH ×2 (05:54→06:00)
[2019-12-20] MEDS ORDERED: NON FORMULARY ITEM (Insulin Aspart (Novolog Flexpen) 0 UNIT) SQ SCH (07:30)
[2019-12-20] MEDS: PANTOPRAZOLE 40 MG TABLET. PO SCH (07:30)
[2019-12-20] MEDS ORDERED: DEXTROSE 50% 25 GM / 50ML DISP.SYRIN. IV PRN (07:30)
[2019-12-20] MEDS: metFORMIN 500 MG TABLET PO SCH ×2 (08:00→17:00)
[2019-12-20] MEDS: INSULIN LISPRO 300 UNITS/3 ML VIAL. SQ SCH ×3 (08:00→17:00)
[2019-12-20] MEDS: LACTOBACILLUS RHAMNOSUS GG 1 CAPSULE. PO SCH ×2 (08:55→20:07)
[2019-12-20] MEDS: busPIRone 5 MG TABLET. PO SCH ×2 (08:55→20:07)
[2019-12-20] MEDS: CEPHALEXIN 250 MG CAPSULE PO SCH ×2 (08:55→20:08)
[2019-12-20] MEDS: APIXABAN 5 MG TABLET. PO SCH ×2 (08:55→20:08)
[2019-12-20] MEDS: POLYVINYL ALCOHOL 1.4% OPHTH SOLUTION 15ML BOTTLE. OU SCH ×2 (08:58→20:10)
[2019-12-20] MEDS: NYSTATIN TOPICAL POWDER 15GM BOTTLE. TP SCH ×3 (08:59→20:10)
[2019-12-20] MEDS: risperiDONE 0.5 MG TABLET. PO SCH (09:00)
[2019-12-20] MEDS ORDERED: AMIODARONE HCL 200 MG TABLET PO SCH (09:00)
--- NOTE | 2019-12-20 10:26 | HP ---
ADMIT DATE: ADMISSION HISTORY AND PHYSICAL ATTENDING PHYSICIAN: Dr. Smith. CHIEF COMPLAINT: Cough and fevers. HISTORY OF PRESENT ILLNESS: The patient is an 89-year-old female who had been up at the [facility] for the last couple of weeks. She has been exposed to COVID-19 coronavirus. For the last 3 days, she has run low-grade fevers, cough, congestion; oxygen saturation marginal, supplemental oxygen had to be added. She indeed had a swab again yesterday, which came reported back as positive for COVID-19 coronavirus. Chest x-ray yesterday showed patchy ground glass infiltrates bilaterally. No overt decompensation. Her oxygen saturations are minimal. Her pO2 was 60 mmHg on room air. She was admitted to the ICU, then for treatment of COVID-19 associated pneumonia. PAST MEDICAL HISTORY: Significant to Alzheimer's dementia, neurocognitive deficit, vascular dementia with delusions, impulse control, visual hallucination, anxiety disorder, psychosis, paroxysmal atrial fibrillation, remote history of congestive heart failure and gastroesophageal reflux disease, and hypothyroidism, on replacement. CURRENT MEDICINES: From upstairs include amiodarone, apixaban 5 mg b.i.d. BuSpar, cephalexin for UTI, dextran, insulin on a sliding scale, metformin, Remeron, nystatin, omeprazole, ondansetron, Risperdal, triamcinolone, and Ultram p.r.n. pain. ALLERGIES: She has multiple allergies including CAROLYN INHIBITORS, PENICILLIN, CODEINE, IBUPROFEN, LATEX, SULFAMETHOXAZOLE, AND TRIMETHOPRIM. Exact etiology is unclear. SOCIAL HISTORY: She is a nonsmoker, nondrinker. FAMILY HISTORY: Unobtainable. REVIEW OF SYSTEMS: Gleaned from the nursing chart. The patient is very confused and disoriented. She has no insight into what is going on. PHYSICAL EXAMINATION: GENERAL: When I saw her, this is an elderly female in minimal distress. INITIAL VITAL SIGNS: Showed a blood pressure of 145/77, her pulse is 60 and regular. She had been febrile yesterday to 101.5 degrees Fahrenheit, today is 97.8. Her oxygen saturation 94% on 4 liters of nasal cannula. HEENT: Head is without trauma. The pupils are reactive. Sclerae nonicteric. Oropharynx appears clear. NECK: Supple. LUNGS: There is evidence of diffuse rhonchi in lower bases. CARDIOVASCULAR: Showed distant heart tones. No obvious gallops. Peripheral pulses are palpable and full. ABDOMEN: Soft, scaphoid, nontender. Bowel sounds are hypoactive. EXTREMITIES: Show no cyanosis or edema. NEUROLOGIC FINDINGS: Focally intact. No deficits. Speech is fluent. She is confused and disoriented over person, place and time. LABORATORY AND X-RAY STUDIES: The chest x-ray showed patchy diffuse alveolar infiltrates, no decompensation. Heart size is upper limits of normal. Her hemoglobin earlier had been 11.4 g/dL with a white count of 9600. Chemistry panel showed a serum blood sugar 121 mg/dL, creatinine 1.2 and her electrolytes were within normal range. ASSESSMENT: An 89-year-old female with: 1. COVID-19 coronavirus pneumonia. 2. Ybcho-ep-dythvdv respiratory failure. 3. Paroxysmal atrial fibrillation. 4. Vascular dementia. 5. Profound confusion with psychosis. 6. Generalized debilitation. 7. Type 2 diabetes mellitus. 8. Hypothyroidism, on replacement. PLAN: 1. The patient has been admitted to the inpatient service in ICU. 2. COVID-19 coronavirus precautions. 3. I did start her on Plaquenil and Zithromax for the next 5 days. I am aware of the drug interaction amiodarone because of her heart rate is controlled. We will hold the amiodarone now and restart it later if necessary. 4. Nebulizer therapy. 5. Supplemental oxygen. 6. Diabetic diet as tolerated. 7. Simplification of meds. Her prognosis is certainly guarded given her age, whether or not she will recover or go to full-blown respiratory failure remains to be seen. The patient is a DNR per advanced directives. We will respect her wishes. There is no family here. I will try to contact any power of contracts attorney of family at a later date. JUVE SMITH MD DR: AKOSUA/halle JOB#: [id number] / [id number]
[2019-12-20] MEDS ORDERED: AZITHROMYCIN 250 MG TABLET. PO ONE (12:00)
[2019-12-20] MEDS: HYDROXYCHLOROQUINE (PROGRAM) 200 MG TABLET PO SCH ×2 (12:22→20:08)
[2019-12-20] MEDS ORDERED: risperiDONE 0.25 MG TABLET. PO SCH (17:00)
--- NOTE | 2019-12-20 20:12 | RAD ---
PORTABLE CHEST 1V 12/20/2019 6:27 PM INDICATION: Increased shortness of air, COVID positive COMPARISON: 12/19/2019 TECHNIQUE: Portable frontal view of the chest is provided. FINDINGS: The cardiomediastinal silhouette is similar in appearance. Left chest wall cardiac device is in similar position. There is worsening bilateral patchy airspace opacities. Increase in small left pleural effusion. There may be mild pulmonary vascular congestion. No pneumothorax. There is moderate hiatal hernia stable. IMPRESSION: Increasing bilateral perihilar interstitial and alveolar airspace disease as may be seen with multifocal pneumonia and developing acute respiratory distress syndrome. Moderate hiatal hernia. Electronically signed by: Ananya Harkins MD (12/20/2019 8:10 PM) JENNIE
[2019-12-20] MEDS ORDERED: LACTOBACILLUS RHAMNOSUS GG 1 CAPSULE. PO SCH (21:00)
[2019-12-20] MEDS ORDERED: MIRTAZAPINE 7.5 MG TABLET. PO SCH (21:00)
[2019-12-20] MEDS: MORPHINE SULFATE 2 MG/ML DISP.SYRIN. IV PRN (23:55)
[2019-12-21] VITALS (7 sets, daily range): BP systolic 94–181; BP diastolic 49–95
[2019-12-21] MEDS: MORPHINE SULFATE 2 MG/ML DISP.SYRIN. IV PRN ×3 (01:46→09:02)
[2019-12-21] MEDS: LEVOTHYROXINE 75 MCG TABLET PO SCH (05:50)
[2019-12-21] MEDS: PANTOPRAZOLE 40 MG TABLET. PO SCH ×2 (07:30→08:11)
[2019-12-21] MEDS: INSULIN LISPRO 300 UNITS/3 ML VIAL. SQ SCH (08:00)
[2019-12-21] MEDS: metFORMIN 500 MG TABLET PO SCH (08:00)
[2019-12-21] MEDS: busPIRone 5 MG TABLET. PO SCH ×2 (08:11→09:00)
[2019-12-21] MEDS: APIXABAN 5 MG TABLET. PO SCH ×2 (08:11→09:00)
[2019-12-21] MEDS: HYDROXYCHLOROQUINE (PROGRAM) 200 MG TABLET PO SCH ×2 (08:12→09:00)
[2019-12-21] MEDS: LACTOBACILLUS RHAMNOSUS GG 1 CAPSULE. PO SCH ×2 (08:12→09:00)
[2019-12-21] MEDS: CEPHALEXIN 250 MG CAPSULE PO SCH ×2 (08:12→09:00)
[2019-12-21] MEDS: risperiDONE 0.5 MG TABLET. PO SCH ×2 (08:15→09:00)
[2019-12-21] MEDS: POLYVINYL ALCOHOL 1.4% OPHTH SOLUTION 15ML BOTTLE. OU SCH (09:00)
[2019-12-21] MEDS: NYSTATIN TOPICAL POWDER 15GM BOTTLE. TP SCH (09:00)
[2019-12-21 11:26] LABS: BASO # 0.1 x10^3/uL (0.0-0.2); BASO % 1 % (0-3); EOS # 0.1 x10^3/uL (0.0-0.7); EOS % 1 % (0-3); HEMATOCRIT 37.2 % (36.0-47.0); HEMOGLOBIN 11.8 g/dL (12.0-15.5); LYMPH # 0.3 x10^3/uL (1.0-4.8); LYMPH % 3 % (24-48); MEAN CORPUSCULAR HEMOGLOBIN 28 pg (25-35); MEAN CORPUSCULAR HGB CONC 32 g/dL (31-37); MEAN CORPUSCULAR VOLUME 89 fL (79-100); MONO # 0.7 x10^3/uL (0.0-1.1); MONO % 5 % (0-9); NEUT % 92 % (31-73); PLATELET COUNT 294 x10^3/uL (140-400); RED BLOOD COUNT 4.17 x10^6/uL (3.50-5.40); RED CELL DISTRIBUTION WIDTH 15.9 % (11.5-14.5); WHITE BLOOD COUNT 14.1 x10^3/uL (4.0-11.0)
[2019-12-21 11:49] LABS: ALBUMIN 1.8 g/dL (3.4-5.0); ALBUMIN/GLOBULIN RATIO 0.4 (1.0-1.7); GFR 52.3; POTASSIUM 3.5 mmol/L (3.5-5.1); TOTAL BILIRUBIN 1.1 mg/dL (0.2-1.0); TOTAL PROTEIN 6.7 g/dL (6.4-8.2)
[2019-12-21 13:36] LABS: C REACTIVE PROTEIN 269.5 mg/L (0-3.3)
--- NOTE | 2019-12-21 14:29 | DS ---
DATE OF DISCHARGE: 12/21/2019 HOSPITAL COURSE: The patient is an 89-year-old female patient who was seen at [facility] for the last couple of weeks. She has been exposed to COVID-19 coronavirus. For the last 3 days prior to admission, she has a low-grade fever, cough, congestion, hypoxemia on supplemental oxygen. She has had the swab again which came back as positive for COVID-19. Chest x-ray showed patchy ground glass infiltrates bilaterally. No overt decompensation. Her oxygen saturation was only 60% on room air. She was admitted to the ICU for treatment of COVID-19 with associated pneumonia. She was started on Plaquenil and Zithromax. Her amiodarone was put on hold. However, given that her condition has steadily worsened. Her oxygen requirement has dramatically improved and therefore, a decision was made to discharge her to inpatient hospice. PHYSICAL EXAMINATION: GENERAL: On examining her on the day of discharge, she was clearly pale. No jaundice, cyanosis or thyromegaly. No jugular venous distention. No lower limb edema. VITAL SIGNS: Her heart rate was 67, blood pressure was 119/59, temperature was 96.9, respiratory rate was 18, and oxygen saturation was 93% only 11 liters of oxygen by nasal cannula. HEAD, EYES, EARS, NOSE AND THROAT: Showed normocephalic and atraumatic. NECK: Supple. HEART: Showed normal first and second heart sounds. No gallop, rub or murmur. CHEST: Showed central trachea, equal bilateral rhonchi. No crepitation. ABDOMEN: Distended, soft, nontender. NEUROLOGIC: She was confused, disoriented, but without any obvious neurological deficit. LABORATORY STUDIES: Her blood sugar was well within normal range. White cell count was 14,000, hemoglobin 11.8, hematocrit 37, MCV 89, and platelet count 294. DISCHARGE MEDICATIONS: She was discharged to inpatient hospice care to continue on morphine 2 mg IV every 8 hours, Ativan 0.5 mg every 2 hours, scopolamine patch topically every 72 hours and oxygen as well as Tylenol p.o. or suppository every 4 hours. FINAL DISCHARGE DIAGNOSES: 1. Acute on chronic respiratory failure. 2. COVID-19 with associated pneumonia. 3. Paroxysmal atrial fibrillation. 4. Vascular dementia. 5. Type 2 diabetes mellitus. 6. Hypothyroidism. TIARA BOOGIE MD DR: Charo JOB#: [id number] / [id number]
--- NOTE | 2019-12-25 16:02 | EKG ---
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
== END 2019-12-21 12:05 | disposition hospice, inpatient (51) | DRG 177 ==
LOC: ICU 18:45
PROVIDERS: ADMIT Hospitalist; ATTEND Hospitalist
DX: U07.1 COVID-19 (principal); J12.89 Other viral pneumonia; J96.20 Acute and chronic respiratory failure, unspecified whether with hypoxia or hypercapnia; N39.0 Urinary tract infection, site not specified; E03.9 Hypothyroidism, unspecified; E11.9 Type 2 diabetes mellitus without complications; F01.50 Vascular dementia, unspecified severity, without behavioral disturbance, psychotic disturbance, mood disturbance, and anxiety; F02.80 Dementia in other diseases classified elsewhere, unspecified severity, without behavioral disturbance, psychotic disturbance, mood disturbance, and anxiety; G30.9 Alzheimer's disease, unspecified; I48.0 Paroxysmal atrial fibrillation; I50.9 Heart failure, unspecified; Z79.01 Long term (current) use of anticoagulants; F41.9 Anxiety disorder, unspecified; K21.9 Gastro-esophageal reflux disease without esophagitis; Z79.899 Other long term (current) drug therapy; Z88.0 Allergy status to penicillin; Z88.8 Allergy status to other drugs, medicaments and biological substances; Z91.040 Latex allergy status; Z66 Do not resuscitate
CPT/HCPCS: 36415; 71045; 80053; 82947; 85025; 86140; 93005; J0456; J2270

== ENCOUNTER 2019-12-21 12:05 | Inpatient (IN) | payer MEDICARE, OTHER ==
[~2019-12-21] VITALS: Ht 147.3 cm; Wt 69.5 kg
[~2019-12-21 12:05] MED LIST changes: +CEPH-263 PO; +MIRT15TA PO; +OLAN5TAB5 PO; +RISP0.5T24 PO; +TRAZ-120 PO
[2019-12-21 13:00] VITALS: BP 109/55
[2019-12-21] MEDS ORDERED: LORazepam INTENSOL 2 MG/ML BOTTLE SL PRN (13:30)
[2019-12-21] MEDS ORDERED: TRIAMCINOLONE ACETONIDE 0.5% TOPICAL CREAM 15GM TUBE. TP PRN (13:30)
[2019-12-21] MEDS ORDERED: ONDANSETRON ODT 4 MG TAB.RAPDIS PO PRN (13:30)
[2019-12-21] MEDS ORDERED: ACETAMINOPHEN 650 MG SUPP.RECT. PR PRN (13:30)
[2019-12-21 14:00] VITALS: BP 126/70
[2019-12-21] MEDS ORDERED: SCOPOLAMINE 1.5MG PATCH. TD SCH (14:00)
[2019-12-21] MEDS ORDERED: NYSTATIN TOPICAL POWDER 15GM BOTTLE. TP SCH (14:00)
[2019-12-21] MEDS: MORPHINE SULFATE 2 MG/ML DISP.SYRIN. IV PRN ×2 (14:29→18:38)
--- NOTE | 2019-12-29 12:03 | DS ---
DATE OF DISCHARGE: 12/21/2019 SUMMARY HOSPITAL COURSE: The patient is an 89-year-old female patient who was transferred from [facility] where she was there about 2 weeks prior to transfer to ICU. She has been exposed to COVID-19 coronavirus and for the last 3 days prior to the transfer to the ICU, she has run a low-grade fever, cough, congestion. She became hypoxic, requiring oxygen supplementation and her swab came back positive for coronavirus. Chest x-ray showed patchy ground glass infiltrates bilaterally. No overt decompensation. Her oxygen saturation remained about 60 mmHg on room air and she was treated for COVID-19 associated pneumonia. As the oxygen requirement has dramatically worsened, a decision was made to discharge her to inpatient hospice and was started on comfort care in the form of morphine, Ativan, and scopolamine. The patient's condition has steadily worsened at around 20:00 p.m. on 12/21/2019. She was examined by the nursing staff and basically has spontaneous respiration, no palpable pulses. No audible heart sounds and the patient was pronounced around that time. The cause of is: 1. Cardiopulmonary arrest. 2. COVID-19 associated pneumonia. 3. Acute on chronic respiratory failure. 4. Vascular dementia. TIARA BOOGIE MD DR: JOCE/halle JOB#: [id number] / [id number]
== END 2019-12-21 22:18 | disposition expired | DRG 177 ==
LOC: ICU 12:05 → UNDOADMIN 12:05 → UNDODISIN 22:18
PROVIDERS: ADMIT Internal Medicine; ATTEND Internal Medicine
DX: U07.1 COVID-19 (principal); J96.20 Acute and chronic respiratory failure, unspecified whether with hypoxia or hypercapnia; J12.89 Other viral pneumonia; I48.0 Paroxysmal atrial fibrillation; I46.9 Cardiac arrest, cause unspecified; Z79.01 Long term (current) use of anticoagulants; F01.50 Vascular dementia, unspecified severity, without behavioral disturbance, psychotic disturbance, mood disturbance, and anxiety; E03.9 Hypothyroidism, unspecified; Z88.0 Allergy status to penicillin; Z88.8 Allergy status to other drugs, medicaments and biological substances; Z91.040 Latex allergy status; Z79.899 Other long term (current) drug therapy; Z51.5 Encounter for palliative care
CPT/HCPCS: J2270